=== PATIENT | female | born 1990 | race African-American/Black ===

== ENCOUNTER → 2020-02-21 13:55 | Outpatient (REF) | payer MEDICAID, SELFPAY ==
--- NOTE | 2020-02-21 14:00 | CA_ITS ---
Transthoracic Echocardiogram Patient (Last, First, Middle): Steve Sow, Gender: Female Date of : 1990 Age: 30 Procedure Date: 02/21/2020 Procedure Type: Transthoracic Echocardiogram Location: OP Height: 147.32 cm Weight: 54.43 kg BSA: 1.47 m2 Heart Rate: bpm BP: 118 / 60 mmHg Waiter/Waitress Informal: Referring MD: Jefferson Damon MD Symptoms: R55 SYNCOPE Study Quality: Fair ECG Rhythm: Sinus Conclusions: - The left ventricular systolic function is normal. The visually estimated ejection fraction is between 60-65%. - No obvious valvular pathology seen on this study. Findings Left Ventricle Normal left ventricular cavity size. There is normal left ventricular wall thickness. The left ventricular systolic function is normal. The visually estimated ejection fraction is between 60-65%. There is no evidence of regional wall motion abnormalities. Diastolic function is normal for age. Right Ventricle Normal right ventricular cavity size and systolic function. Atria Both atria are normal in size. Aortic Valve There is a normal trileaflet aortic valve. There is no aortic valve stenosis. There is no aortic valve regurgitation. Mitral Valve The mitral valve appears normal. There is trace mitral valve regurgitation. There is no mitral valve stenosis. Pulmonic Valve The pulmonic valve was not well visualized. Tricuspid Valve Normal tricuspid valve structure. There is trace tricuspid valve regurgitation. The pulmonary artery systolic pressure is normal. Great Vessels The aortic annulus, sinuses of valsalva, and asc aorta are normal in size. Venous The inferior vena cava is normal in size and collapses greater than 50% with inspiration. Pericardium/Pleural There is no evidence of pericardial effusion. Prior Study Comparison No prior study available for comparison. Recommendations, Care & Conclusions No obvious valvular pathology seen on this study. Measurements 2D Linear Measurements IVSd: 0.80 0.6-0.9/0.6-1.0 cm LVIDd: 3.88 3.9-5.3/4.2-5.9 cm LVIDd Index: 2.64 2.4-3.2/2.2-3.1 cm/m2 LVIDs: 2.25 2.0-3.6 cm LVPWd: 0.87 0.7-1.1 cm Ao Root: 2.20 2.1-3.5 cm LA Diam: 3.00 2.7-3.8/3.0-4.0 cm LAIDs Index: 2.04 1.5-2.3 cm/m2 LV Mass: 117.33 67-162/88-224 g LV Mass Index: 79.82 43-95/49-115 g/m2 LVOT Diam: 1.90 3.0+(-)1.3 cm Mitral Valve MV Pk E: 0.71 MV PK A: 0.53 MV Decel Time: 134.00 E/A: 1.30 E'Lateral: 11.50 E'Medial: 9.09 E/E' Med: 7.80 E/E' Lat: 6.20 PHT: 39.00 MVA PHT: 5.64 Decel [place]: 5.33 Aortic Valve AoV Pk Saulo: 1.38 AoV Mn Saulo: 0.90 AoV VTI: 0.28 AoV Pk Grad: 8.00 Aov Mn Grad: 4.00 CATALINA Cont.VTI: 2.22 LVOT LVOT Pk Saulo: 1.08 LVOT Mn Saulo: 0.74 LVOT VTI: 0.22 LVOT Pk Grad: 5.00 LVOT Mn Grad: 3.00 LVOT Diam: 1.90 LVOT Area: 2.84 Diastolic Function MV Pk E: 0.71 MV Pk A: 0.53 E/A: 1.30 E'Medial: 9.09 E/E' Med: 7.80 E' Laterial: 11.50 E/E' Lat: 6.20 Tricuspid Valve TR Pk Saulo: 1.76 TR Pk Grad: 12.00 RA Press: 3.00 RVSP: 15.00 Great Vessels Aorta Ao Root-2D: 2.20 2.0-3.7 cm Pulmonary Valve PV Pk Saulo: 1.02 Peak PV Grad: 4.00 Updated in Other Vendor System with Status of Final Darci Wheeler MD electronically signed on 02/22/2020 1:25:53 PM with status of Final
== END ==
LOC: HO.CARD 13:55
PROVIDERS: PCP Internal Medicine; Visit Provider Internal Medicine Cardiovascular Disease
DX: R55 Syncope and collapse (principal)
CPT/HCPCS: 93306

== ENCOUNTER → 2020-03-13 16:17 | Outpatient (BNVA) | payer MEDICAID, SELFPAY | PROVIDERS: Visit Provider Physician Assistant | DX: K21.9 Gastro-esophageal reflux disease without esophagitis (principal); R13.10 Dysphagia, unspecified; Z79.899 Other long term (current) drug therapy | CPT/HCPCS: 99212 ==

== ENCOUNTER 2020-03-22 08:53 | Outpatient (REF) | payer MEDICAID, SELFPAY ==
--- NOTE | 2020-03-22 08:55 | FL_ITS ---
EXAMINATION: FL ESOPHAGRAM CLINICAL INFORMATION: Dysphagia COMPARISON: None TECHNIQUE: Fluoroscopic assessment of the esophagus was performed in various upright and prone obliquities utilizing thin and thick high density barium contrast material and effervescent granules. FINDINGS: There is normal oral bolus control and transfer. Normal posterior tilt of the epiglottis with elevation of the hyoid. No cricopharyngeal abnormality. The esophagus was normal in course, caliber, and contour. There was normal distensibility with no fixed segment of narrowing. No focal mucosal abnormality was identified. No significant esophageal dysmotility was observed. Contrast passed freely across the gastroesophageal junction into the stomach. No significant hiatal hernia. Minimal gastroesophageal reflux was observed. FLUOROSCOPY TIME: 1.1 minute DOSE AREA PRODUCT: 5.169 Gy-cm2 (silverman-centimeter squared) FL/FL barium swallow IMPRESSION: Minimal gastroesophageal reflux is noted. Otherwise normal esophagram.
== END 2020-03-22 08:54 | disposition home or self-care (01) ==
LOC: HO.XRAY 08:53
PROVIDERS: PCP Pediatrics; Visit Provider Physician Assistant
DX: R13.10 Dysphagia, unspecified (principal); K21.9 Gastro-esophageal reflux disease without esophagitis
CPT/HCPCS: 74220

== ENCOUNTER → 2020-04-03 08:58 | Outpatient (BNVA) | payer MEDICAID, SELFPAY | PROVIDERS: PCP Pediatrics; Visit Provider Physician Assistant | DX: Z76.89 Persons encountering health services in other specified circumstances (principal) ==

== ENCOUNTER → 2021-07-22 12:15 | Outpatient (BNVA) | payer MEDICAID, SELFPAY | PROVIDERS: PCP Pediatrics; Visit Provider Physician Assistant | DX: K21.9 Gastro-esophageal reflux disease without esophagitis (principal); R10.9 Unspecified abdominal pain | CPT/HCPCS: 99212 ==

== ENCOUNTER 2022-12-03 11:59 | Outpatient (REF) | payer MEDICAID, SELFPAY ==
[2022-12-03 16:41] LABS: TSH reflex Free T4 0.46 uIU/mL (0.32-4.0)
== END 2022-12-03 12:00 | disposition home or self-care (01) ==
LOC: CF 11:59
PROVIDERS: Visit Provider Pediatrics
DX: E04.2 Nontoxic multinodular goiter (principal)
CPT/HCPCS: 36415; 84443

== ENCOUNTER 2024-06-07 12:59 | Outpatient (REF) | payer MEDICAID, SELFPAY ==
--- OUTSIDE RECORDS SUMMARY | 2024-06-07 15:07 | XMS_ITS | Encounter Summary ---
Author Organization [employer] Address [address] [place] [address] [address] [place] [address] Care Team Providers Care Supervisor Looping Name Role Phone Tiny Richter MD Primary Care Provider [phone] Reason for Referral * Consultation (Urgent) - Authorized Specialty Diagnoses / Procedures Referred By Juan Diego evans Referred To Contact Optometry Diagnoses Encounter for annual physical exam Tiny Richter MD [address] [place] [address] Phone: tel: fax: [facility] [place] [address] Phone: tel: fax: Referral ID Status Reason Start Date Expiration Date Visits Requested Visits Authorized [id number] Authorized Consult and Treat 06/02/2024 06/02/2025 1 1 * Consultation (Urgent) - Authorized Specialty Diagnoses / Procedures Referred By Juan Diego evans Referred To Contact Neurology Diagnoses Encounter for annual physical exam Tiny Richter MD [address] [place] [address] Phone: tel: fax: [facility] Referral ID Status Reason Start Date Expiration Date Visits Requested Visits Authorized [id number] Authorized Specialty Services Required 06/05/2024 06/05/2025 6 6 Reason for Visit * Reason Comments Annual Exam Encounter Details Date Type Department Care Team (Latest Contact Info) Description 06/02/2024 10:00 AM EST Office Visit [facility] [address] [place] [address] Tiny Richter MD [address] [place] [address] Encounter for annual physical exam (Primary Dx); Dietary counseling; Exercise counseling; Overweight; Generalized anxiety disorder; Chronic nonintractable headache, unspecified headache type Social History Tobacco Use Types Packs/Day Years Used Date Smoking Tobacco: Never Passive Smoke Exposure: Never Smokeless Tobacco: Never Alcohol Use Standard Drinks/Week Comments Never 0 (1 standard drink = 0.6 oz pur e alcohol) Depression Answer Date Recorded Patient Health Questionnaire-9 Score 15 06/02/2024 Patient Health Questionnaire-9 Score 15 06/02/2024 Last PHQ-9: Questionnaire Data Not on file 0 06/02/2024 Housing Stability Answer Date Recorded What is your housing situation today? I have katarina smith 05/24/[address] you li ve. Do you have problems with any of the following? None of the above 05/24/2024 Food Insecurity Answer Date Recorded Within the past 12 months, y ou worried that your food would run out before you got money to buy more: Never True 05/24/2024 Within the past 12 months,th e food you bought just didn't last and you didn't have enough money to get more: Never True Transportation Answer Date Recorded In the past 12 months, has l ack of transportation kept you from medical appts, meetings, work or from getting things needed for daily living? No 05/24/2024 Utilities Answer Date Recorded In the past 12 months, has t he electric, gas, oil or water company threatened to shut off services in your home? No 05/24/2024 Depression Answer Date Recorded Patient Health Questionnaire-2 Score 1 06/02/2024 Internet Access Answer Date Recorded Internet Access Q1 Yes 05/24/2024 Internet Access Q2 Not on file 05/24/2024 Comments Unknown Sex and Gender Information Value Date Recorded Sex Assigned at Female 03/09/2022 10:29 AM EDT Legal Sex Female 10:29 AM EDT Gender Identity Female 03/09/2022 10:29 AM EDT Sexual Orientation Straight 03/09/2022 10 :29 AM EDT documented as of this encounter Last Filed Vital Signs Vital Sign Reading Time Taken Comments Blood Pressure 130/87 06/02/2024 10:06 AM EST Pulse 118 06/02/2024 10:06 AM EST Temperature 36.4 ??C (97.6 ??F) 06/02/2024 10:[address] Respiratory Rate 16 06/02/2024 10:06 AM EST Oxygen Saturation 98% 06/02/2024 10:06 AM EST Inhaled Oxygen Concentration - - Weight 60.8 kg (134 lb) 06/02/2024 10:06 AM EST Height 147.3 cm (4' 10 ) 06/02/2024 10:06 AM EST Body Mass Index 28.01 06/02/2024 10:06 AM EST documented in this encounter Progress Notes * Tiny Richter MD - 06/02/2024 10:00 AM EST Subjective Patient ID: Steve Sow is a 34 y.o. female who presents for Annual Exam. Steve is a 34-year-old female patient of mine here for a physical exam visit. She has a past medical history of Chiari malformation for which she needed surgery, overweight, severe anxiety and PTSD, hypothyroidism with multi nodular goiter on the replacement levothyroxine, chronic headaches. She is currently single lives by herself and is currently unemployed but seems to be doing okay. She is here with her mother that she helps take care of. Has no new complaints. She does need her annual eye exam referral and dental care but is afraid of dentist. History provided by: Patient building rigger used: No Review of Systems Constitutional: Negative for activity change, chills, fever and unexpected weight change. HENT: Negative for trouble swallowing. Eyes: Positive for visual disturbance. Negative for pain. Respiratory: Negative for cough, shortness of breath and wheezing. Cardiovascular: Negative for chest pain, palpitations and leg swelling. Gastrointestinal: Negative for abdominal pain and blood in stool. Endocrine: Negative for cold intolerance, heat intolerance, polydipsia and polyuria. Genitourinary: Negative for decreased urine volume, difficulty urinating, dysuria, hematuria, menstrual problem and vaginal discharge. Musculoskeletal: Negative for arthralgias and gait problem. Skin: Negative for color change and rash. Neurological: Positive for headaches. Negative for dizziness, seizures, syncope and weakness. Hematological: Negative for adenopathy. Psychiatric/Behavioral: Negative for dysphoric mood, hallucinations, sleep disturbance and suicidalideas. The patient is nervous/anxious. Objective BP 130/87 (BP Location: Left arm, Patient Position: Sitting, BP Cuff Size: Adult) Pulse(!) 118 Temp 97.6 ??F (36.4 ??C) (Oral) Resp 16 Ht 4' 10 (1.473 m) Wt 134 lb (60.8 kg) SpO2 98% BMI 28.01 kg/m?? Physical Exam Vitals reviewed. Constitutional: General: She is not in acute distress. Appearance: Normal appearance. She is not ill-appearing. HENT: Head: Normocephalic. Right Ear: Tympanic membrane and ear canal normal. Left Ear: Tympanic membrane and ear canal normal. Nose: Nose normal. Mouth/Throat: Mouth: Mucous membranes are moist. Pharynx: No oropharyngeal exudate or posterior oropharyngeal erythema. Eyes: General: Lids are normal. Vision grossly intact. No visual field deficit or scleral icterus. Extraocular Movements: Extraocular movements intact. Right eye: No nystagmus. Left eye: No nystagmus. Conjunctiva/sclera: Conjunctivae normal. Pupils: Pupils are equal, round, and reactive to light. Comments: Left eye externally deviated Cardiovascular: Rate and Rhythm: Normal rate and regular rhythm. Pulses: Normal pulses. Heart sounds: Normal heart sounds. Pulmonary: Effort: Pulmonary effort is normal. No respiratory distress. Breath sounds: Normal breath sounds. Abdominal: Palpations: Abdomen is soft. Musculoskeletal: General: Normal range of motion. Cervical back: Normal range of motion. Right lower leg: No edema. Left lower leg: No edema. Skin: General: Skin is warm. Capillary Refill: Capillary refill takes less than 2 seconds. Findings: No rash. Neurological: General: No focal deficit present. Mental Status: She is alert and oriented to person, place, and time. Psychiatric: Mood and Affect: Mood normal. Behavior: Behavior normal. Thought Content: Thought content normal. Judgment: Judgment normal. Assessment/Plan Diagnoses and all orders for this visit: Encounter for annual physical exam Comments: Steve had her PE today.Fasting labs ordered. Pap due next year. Needs eye exam referral .Dental care overdue but is terrified.Referral done anyways , advised to work on her fear of dentist with therapist. Orders: - Referral to Neurology; Future - Referral to [facility]; Future - Basic Metabolic Panel, Fasting; Future - Chlamydia/N. Gonorrhoeae RNA, TMA, Urogenitial - Hepatitis B Surface Antibody, Qualitative; Future - Hepatitis C Antibody with Reflex to HCV, RNA, Quantitative, Real-Time PCR; Future - HIV-1/2 Antigen and Antibodies, Fourth Generation, with Reflexes; Future - Lipid Panel, Standard; Future - TSH W/Reflex to FT4; Future - Syphilis Screen; Future Dietary counseling Exercise counseling Overweight Comments: Advised to picket labor union a hobby or start walking more etc.. Check fasting labs.Recheck TFts to make surethey are at goal. Last thyroid US sowed multiple nodules ( none concening ). Generalized anxiety disorder Comments: Patient has a therapist and psych provider,meds prescribed by them,mood seems more stable at this time. Chronic nonintractable headache, unspecified headache type Comments: Has hx of Chiari malformation, needed neurosx in past,use to see neurology.New referral done today.Having visual disturbances as well.Opthalm referal done too.Limited visual exam done today within normal limits.Has always had left eye lateral deviation. documented in this encounter Plan of Treatment Upcoming Encounters Date Type Department Care Team ([facility] st Contact Info) Description 08/02/2024 11:00 AM EDT Office Visit [facility] [address] [place] [address] Tiny Richter MD [address] [place] [address] Scheduled Orders Name Type Priority Associated Diagnoses Orde r Schedule Basic Metabolic Panel, Fasting Lab Routine Encounter for annual physical exam Expected: 06/02/2024 (Approximate), Expires: 06/02/2025 Chlamydia/N. Gonorrhoeae RNA, TMA, Urogenitial Microbiology Routine Encounter for annual physical exam Ordered: 06/02/2024 Hepatitis B Surface Antibody, Qualitative Lab Routine Encounter for annual physical exam Expected: 06/02/2024 (Approximate), Expires: 06/02/2025 Hepatitis C Antibody with Reflex to HCV, RNA, Quantitative, Real-Time PCR Lab Routine Encounter for annual physical exam Expected: 06/02/2024, Expires: 06/02/2025 HIV-1/2 Antigen and Antibodies, Fourth Generation, with Reflexes Lab Routine Encounter for annual physical exam Expected: 06/02/2024 (Approximate), Expires: 06/02/2025 Lipid Panel, Standard Lab Routine Encounter for annual physical exam Expected: 06/02/2024 (Approximate), Expires: 06/02/2025 TSH W/Reflex to FT4 Lab Routine Encounter for annual physical exam Expected: 06/02/2024 (Approximate), Expires: 06/02/2025 Syphilis Screen Lab Routine Encounter for annual physical exam Expected: 06/02/2024, Expires: 06/02/2025 Scheduled Referrals Name Type Priority Associated Diagnoses Orde r Schedule Referral to Neurology Outpatient Referral Urgent Encounter for annual physical exam Expected: 06/02/2024 (Approximate), Expires: 06/02/2025 Referral to [facility] Outpatient Referral Urgent Encounter for annual physical exam Expected: 06/02/2024 (Approximate), Expires: 06/02/2025 documented as of this encounter Visit Diagnoses Diagnosis Encounter for annual physical exam- Primary Dietary counseling Dietary surveillance and counseling Exercise counseling Overweight Generalized anxiety disorder Chronic nonintractable headache, unspecified headache type documented in this encounter Additional Health Concerns Assessment Noted Time PHQ-9 Depression Total Score: 15 025 10:56 AM EST documented as of this encounter Care Teams Supervisor Looping Relationship Specialty Start Date End Date Tiny Richter MD [address] [place] [address] PCP - General Family Medicine 09/01/17 documented as of this encounter
--- OUTSIDE RECORDS SUMMARY | 2024-06-07 15:07 | XMS_ITS | Encounter Summary ---
Author Organization [employer] [facility] Address [address] [place] [address] [address] [place] [address] Care Team Providers Care Milieu Coordinator Name Role Phone Tiny Richter MD Primary Care Provider [phone] Reason for Visit * Reason Comments Med Refill Encounter Details Date Type Department Care Team ([facility] Contact Info) Description 04/09/2023 Refill [facility] [address] [place] [address] Tiny Richter MD [address] [place] [address] Social History Tobacco Use Types Packs/Day Years Used Date Smoking Tobacco: Never Passive Smoke Exposure: Never Smokeless Tobacco: Never Comments Unknown Sex and Gender Information Value Date Recorded Sex Assigned at Female 03/09/2022 10:29 AM EDT Legal Sex Female 10:29 AM EDT Gender Identity Female 03/09/2022 10:29 AM EDT Sexual Orientation Straight 03/09/2022 10 :29 AM EDT documented as of this encounter Plan of Treatment Upcoming Encounters Date Type Department Care Team ([facility] Contact Info) Description 08/02/2024 11:00 AM EDT Office Visit [facility] [address] [place] [address] Tiny Richter MD [address] [place] [address] documented as of this encounter Visit Diagnoses Not on filedocumented in this encounter Care Teams Milieu Coordinator Relationship Specialty Start Date End Date Tiny Richter MD [address] [place] [address] PCP - General Family Medicine 09/01/17 documented as of this encounter
--- OUTSIDE RECORDS SUMMARY | 2024-06-07 15:07 | XMS_ITS | Encounter Summary ---
Author Organization [employer] [facility] Address [address] [place] [address] [address] [place] [address] Care Team Providers Care Distillery Miller Name Role Phone Tiny Richter MD Primary Care Provider [phone] Encounter Details Date Type Department Care Team (Late Contact Info) Description 11/23/2022 Orders Only [facility] [address] [place], [place] [phone] Lexii Sureo LPN Social History Tobacco Use Types Packs/Day Years [...] Upcoming Encounters Date Type Department Care Team (Late Contact Info) Description 08/02/2024 11:00 AM EDT Office Visit [facility] [address] [place] [address] Tiny Richter MD [address] [place] [address] documented as of this encounter Visit Diagnoses Not on filedocumented in this encounter Care Teams Distillery Miller Relationship Specialty Start Date End Date Tiny Richter MD [address] [place] [address] PCP - General Family Medicine 09/01/17 documented as of this encounter
--- OUTSIDE RECORDS SUMMARY | 2024-06-07 15:07 | XMS_ITS | Encounter Summary ---
Author Organization [employer] Address [address] [place] [address] Care Team Providers Care Deburrer Machine Name Role Phone Tiny Richter MD Primary Care Provider [phone] Reason for Visit * Reason Onset Date Comments Chart Prep 05/26/2024 Encounter Details Date Type Department Care Team ([facility] st Contact Info) Description 05/26/2024 Telephone [facility] [address] [place], [place] [phone] Tiny Richter MD [address] [place] [address] Chart Prep Social History Tobacco Use Types Packs/Day Years Used Date Smoking Tobacco: Never Passive Smoke Exposure: Never Smokeless Tobacco: Never Alcohol Use Standard Drinks/Week Comments Never 0 (1 standard drink = 0.6 oz pur e alcohol) Housing Stability Answer Date Recorded What is your housing situation today? I have katarinaduke smith 05/24/[address] you [...] off services in your home? No 05/24/2024 Internet Access Answer Date Recorded Internet Access Q1 Yes 05/24/2024 Internet Access Q2 Not on file 05/24/2024 Comments Unknown Sex and Gender Information Value Date Recorded Sex Assigned at Female 03/09/2022 10:29 AM EDT Legal Sex Female 10:29 AM EDT Gender Identity Female 03/09/2022 10:29 AM EDT Sexual Orientation Straight 03/09/2022 10 :29 AM EDT documented as of this encounter Miscellaneous Notes * Telephone Encounter - Sarah [place] - 05/26/2024 10:20 AM EST Chart Prep Labs: not applicable Images: not applicable Vaccines due: yes Referrals: n/a Screenings: n/a Overdue care gaps: Sbirt, PHQ-9, disability screening documented in this encounter Plan of Treatment Upcoming Encounters Date Type Department Care Team (Late st Contact Info) Description 08/02/2024 11:00 AM EDT Office Visit [facility] [address] [place] [address] Tiny Richter MD [address] [place] [address] documented as of this encounter Visit Diagnoses Not on filedocumented in this encounter Care Teams Deburrer Machine Relationship Specialty Start Date End Date Tiny Richter MD [address] [place] [address] PCP - General Family Medicine 09/01/17 documented as of this encounter
--- OUTSIDE RECORDS SUMMARY | 2024-06-07 15:07 | XMS_ITS | Encounter Summary ---
Author Organization [employer] Address [address] [place] [address] Care Team Providers Care Thermal Spray Operator Name Role Phone Tiny Richter MD Primary Care Provider [phone] Encounter Details Date Type Department Care Team (Latest Contact Info) Description 06/02/2024 Travel Social History Tobacco Use Types Packs/Day Years [...] Description 08/02/2024 11:00 AM EDT Office Visit [facility] MED [facility] PEDS [address] [place] [address] Tiny Richter MD [address] [place] [address] documented as of this encounter Visit Diagnoses Not on filedocumented in this encounter Additional Health Concerns Assessment Noted Time PHQ-9 Depression Total Score: 15 025 10:56 AM EST documented as of this encounter Care Teams Thermal Spray Operator Relationship Specialty Start Date End Date Tiny Richter MD [address] [place] [address] PCP - General Family Medicine 09/01/17 documented as of this encounter
--- OUTSIDE RECORDS SUMMARY | 2024-06-07 15:07 | XMS_ITS | Clinical Summary ---
Author Organization [facility] Address [address] [place] [address] Phone Care Team Providers Care Stocklayer Name Role Phone Kofi Burks MD Primary Care Provider [phone] Allergies Active Allergy Reactions Criticality Noted Date Comments Penicillins 03/31/2024 Encounters Date Type Department Care Team Description 03/31/2024 1:10 AM EST - 03/31/2024 4:54 AM EST Emergency [facility] Emergency [address] [place] [address] Dez Franco MD Chest pain with low risk for cardiac etiology (Primary Dx) Discharge Disposition: Home or Self Care from Last 3 Months Surgical History Surgery Date Site/Laterality Comments TONSILLECTOMY ADENOIDECTOMY, BILATERAL MYRINGOTOMY AND TUBES PROCEDURE: [place] TONSILLECTOM[place] & ADENOIDECTOMY <AGE 13 OTHER SURGICAL HISTORY 1992 Bilateral PROCEDURE: ---- OTHER ----; COMMENT: eye Medical History Medical History Date Comments Disease of thyroid gland Asthma Social History Tobacco Use Types Packs/Day Years Used Date Smoking Tobacco: Never Smokeless Tobacco: Never Tobacco Cessation:Counseling Given: Not Answered Alcohol Use Standard Drinks/Week Comments Yes 0 (1 standard drink = 0.6 oz pur e alcohol) Sex and Gender Information Value Date Recorded Sex Assigned at Not on file Gender Identity Not on file Sexual Orientation Not on file Job Start Date Occupation Industry Not on file Not on file Not on file Obstetrics History Last Filed Vital Signs Vital Sign Reading Time Taken Comments Blood Pressure 105/79 03/31/2024 2:46 AM EST Pulse 75 03/31/2024 2:46 AM EST Temperature 36.8 ??C (98.2 ??F) 03/31/2024 2:46 AM ES T Respiratory Rate 18 03/31/2024 2:46 AM EST Oxygen Saturation 97% 03/31/2024 2:46 AM EST Inhaled Oxygen Concentration - - Weight 59 kg (130 lb) 03/31/2024 12:04 AM EST Height 147.3 cm (4' 10 ) 03/31/2024 12:04 AM EST Body Mass Index 27.17 03/31/2024 12:04 AM EST Plan of Treatment Health Maintenance Due Date Last Done Comments Pneumococcal Vaccine: Pediatrics (0 to 5 Years) and At-Risk Patients (6 to 64 Years) (1 of 2 - PCV) 1997 DTaP,Tdap,and Td Vaccines (1 - Tdap) 2010 Hepatitis B Vaccines (1 of 3 - 19+ 3-dose series) 2010 Cervical Cancer Screening: P ap Smear 01/05/2012 Depression Screening 04/12/2022 Hepatitis C Screening 04/12/2022 Social Influencers of Health Screening 04/12/2022 COVID-19 Vaccine (4 - 2023-2 5 season) 2024 03/21/2021, 08/14/2020, 07/17/2020 Influenza Vaccine (#1) 2024 , 02/21/2018, 03/03/2010 HIV Screening Completed 10/03/2020 HIB Vaccines Aged Out No longer eligi ble based on patient's age to complete this topic HPV Vaccines Aged Out No longer eligi ble based on patient's age to complete this topic Hepatitis A Vaccines Aged Out No long er eligible based on patient's age to complete this topic IPV Vaccines Aged Out No longer eligi ble based on patient's age to complete this topic MMR Vaccines Aged Out No longer eligi ble based on patient's age to complete this topic Meningococcal ACWY Vaccine Aged Out N o longer eligible based on patient's age to complete this topic RSV Immunization Patients Under 20 months Aged Out No longer eligible b ased on patient's age to complete this topic Varicella Vaccines Aged Out No longer eligible based on patient's age to complete this topic Procedures Procedure Name Priority Date/Time Associated Diagnosis Comments XR CHEST 2 VIEWS STAT 03/31/2024 2:57 AM EST TROPONIN I HIGH SENSITIVITY STAT 03/31/2024 2:38 AM EST ECG 12-LEAD STAT 03/31/2024 2:16 AM EST POC , URINE DIAGNOSTIC STAT 03/31/2024 1:11 AM EST CBC WITH AUTO DIFFERENTIAL STAT 03/31/2024 12:50 AM EST B-TYPE NATRIURETIC PEPTIDE STAT 03/31/2024 12:50 AM EST MAGNESIUM STAT 03/31/2024 12:50 AM EST LIPASE STAT 03/31/2024 12:50 AM EST COMPREHENSIVE METABOLIC PANEL STAT 03/31/2024 12:50 AM EST CBC AND DIFFERENTIAL STAT 03/31/2024 12:50 AM EST TROPONIN I HIGH SENSITIVITY STAT 03/31/2024 12:50 AM EST ECG 12-LEAD STAT 03/31/2024 12:02 AM EST ECG ANNOTATED 03/31/2024 ECG ANNOTATED 03/31/2024 from Last 3 Months Results * XR Chest 2 Views (03/31/2024 2:57 AM EST) Anatomical Region Laterality Modality Body Radiographic Leatha ging 03/31/2024 8:45 AM EST Impressions 03/31/2024 8:47 AM EST Normal examination. ??The patient has undergone cholecystectomy since the prior study performed 08/24/2021. Code 96048 CT Teleradiology -------- FINAL REPORT -------- Dictated By: Keon Leonardo Dictated Date: 03/31/2024 08:45 ET Assigned Physician: Keon Leonardo Reviewed and Electronically Signed By: Keon Leonardo Signed Date: 03/31/2024 08:47 ET Workstation ID: [id number] Transcribed By: Self Edit Transcribed Date: 03/31/2024 08:45 ET Narrative 03/31/2024 8:47 AM EST HISTORY: The patient is a 34-year-old female with chest pain. FINDINGS: PA and lateral radiographs of the chest demonstrate normal appearance of the bony structures. ??The cardiac and mediastinal contours are within normal limits. ??The lungs and costophrenic angles are clear. Cholecystectomy clips are noted, new since the prior study performed 08/24/2021. Procedure Note Keon Leonardo MD - 03/31/2024 HISTORY: The patient is a 34-year-old female with chest pain. FINDINGS: PA and lateral radiographs of the chest demonstrate normalappearance of the bony structures. The cardiac and mediastinal contoursare within normal limits. The lungs and costophrenic angles are clear. Cholecystectomy clips are noted, new since the prior study performed08/24/2021. IMPRESSION: Normal examination. The patient has undergone cholecystectomy since theprior study performed 08/24/2021. Code 59639 CT Teleradiology -------- FINAL REPORT -------- Dictated By: Keon Leonardo Dictated Date: 03/31/2024 08:45 ET Assigned Physician: Keon Leonardo Reviewed and Electronically Signed By: Keon Leonardo Signed Date: 03/31/2024 08:47 ET Workstation ID: [id number] Transcribed By: Self Edit Transcribed Date: 03/31/2024 08:45 ET Scot A Salvador QUICK IMG XR PROCEDURES * Troponin I high sensitivity (03/31/2024 2:38 AM EST) Only the most recent of2 resultswithin the time period is included. High Sensitivity Troponin I 5 <=54 ng/L LAB CHEMISTRY METHOD 03/31/2024 3:05 AM EST [facility] Blood Venous blood specimen / Unknown Venipuncture / Unknown 03/31/2024 2:38 AM EST 03/31/2024 2:42 AM EST Narrative [facility] - 03/31/2024 3:05 AM EST High levels of biotin in samples may falsely decrease hsTroponin values. ??Use caution when interpreting hsTroponin results in patients taking biotin who exhibit renal impairment (eGFR <60) or in patients taking more than 20 mg/day of biotin. Dez Franco MD LAB [facility]LOOD ORDERABLES [facility] [address] [place] [address], * ECG 12 lead (03/31/2024 2:16 AM EST) Only the most recent of2 resultswithin the time period is included. Ventricular Rate ECG 76 BPM GEMUSE Atrial Rate 76 BPM GEMUSE P-R Interval 132 ms GEMUSE QRS Duration 64 ms GEMUSE Q-T Interval 390 ms GEMUSE QTc 438 ms GEMUSE P Wave [place] 18 degrees GEMUSE R Jefferson 11 degrees GEMUSE T [place] 19 degrees GEMUSE ECG Interpretation Normal sinus rhythm Normal ECG When compared with ECG of 31-MAR-2024 00:02, No significant change was found Confirmed by MD Saravanan, [place] ([id number]) on 04/02/2024 12:57:02 PM GEMUSE 03/31/2024 2:16 AM EST 04/02/2024 12:57 PM EST Dez Franco MD ECG ORDERABLES Performing Organization Address City[facility]/ZIP Co de Phone Number GEMUSE * POC , urine manually resulted (03/31/2024 1:11 AM EST) HCG, Ur POC Negative Negative POC hCG Int QC Pass? Yes Yes Urine Urine specimen obtained by clean catch procedure / Unknown 03/31/2024 1:11 AM EST Dez Franco MD POINT OF CARE TEST E NTER/EDIT ORDERABLES * (ABNORMAL) CBC auto differential (03/31/2024 12:50 AM EST) WBC 10.9(H) 4.8 - 10.8 K/[facility] LAB HEMETOLOGY METHOD 03/31/2024 1:24 AM [facility] RBC 4.40 3.80 - 4.80 M/mcL LAB HEMETOLOGY METHOD 03/31/2024 1:24 AM [facility] Hemoglobin 13.6 11.5 - 16.0 g/dL LAB HEMETOLOGY METHOD 03/31/2024 1:24 AM [facility] Hematocrit 40.8 35.0 - 47.0 % LAB HEMETOLOGY METHOD 03/31/2024 1:24 AM [facility] MCV 92.9 79.0 - 98.0 FL LAB HEMETOLOGY METHOD 03/31/2024 1:24 AM [facility] MCH 31.0 27.0 - 32.0 pcg LAB HEMETOLOGY METHOD 03/31/2024 1:24 AM [facility] MCHC 33.3 32.0 - 37.0 g/dL LAB HEMETOLOGY METHOD 03/31/2024 1:24 AM [facility] RDW 12.2 11.0 - 15.0 % LAB HEMETOLOGY METHOD 03/31/2024 1:24 AM [facility] Platelets 459(H) 130 - 400 K/mcL LAB HEMETOLOGY METHOD 03/31/2024 1:24 AM [facility] MPV 9.5 7.0 - 11.0 FL LAB HEMETOLOGY METHOD 03/31/2024 1:24 AM [facility] NRBC 0.0 <1.0 % LAB HEMETOLOGY METHOD 03/31/2024 1:24 AM [facility] NRBC Absolute 0.00 <0.10 K/mcL LAB HEMETOLOGY METHOD 03/31/2024 1:24 AM [facility] Neutrophils Relative 60.4 % LAB HEMETOLOGY METHOD 03/31/2024 1:24 AM [facility] Lymphocytes Relative 29.9 % LAB HEMETOLOGY METHOD 03/31/2024 1:24 AM [facility] Monocytes Relative 6.5 % LAB HEMETOLOGY METHOD 03/31/2024 1:24 AM [facility] Eosinophils Relative 2.1 % LAB HEMETOLOGY METHOD 03/31/2024 1:24 AM [facility] Basophils Relative 0.8 % LAB HEMETOLOGY METHOD 03/31/2024 1:24 AM [facility] Immature Granulocytes Relative 0.3 % LAB HEMETOLOGY METHOD 03/31/2024 1:24 AM [facility] Neutrophils Absolute 6.55 1.50 - 7.00 K/mcL LAB HEMETOLOGY METHOD 03/31/2024 1:24 AM [facility] Lymphocytes Absolute 3.24 1.00 - 5.00 K/mcL LAB HEMETOLOGY METHOD 03/31/2024 1:24 AM [facility] Monocytes Absolute 0.71 0.20 - 1.00 K/mcL LAB HEMETOLOGY METHOD 03/31/2024 1:24 AM [facility] Eosinophils Absolute 0.23 0.00 - 0.50 K/mcL LAB HEMETOLOGY METHOD 03/31/2024 1:24 AM [facility] Basophils Absolute 0.09 0.00 - 0.20 K/mcL LAB HEMETOLOGY METHOD 03/31/2024 1:24 AM [facility] Immature Granulocytes Absolute 0.03 0.00 - 0.03 K/mcL LAB HEMETOLOGY METHOD 03/31/2024 1:24 AM [facility] Blood Venous blood specimen / Unknown Venipuncture / Unknown 03/31/2024 12:50 AM EST 03/31/2024 1:18 AM EST Dez Franco MD LAB BLOOD ORDERABLES [facility] [address] [place] [address], * B-type natriuretic peptide (03/31/2024 12:50 AM EST) Pathologist [facility] BNP <2 <=100 pcg/mL LAB CHEMISTRY METHOD 03/31/2024 2:04 AM EST [facility] Blood Venous blood specimen / Unknown Venipuncture / Unknown 03/31/2024 12:50 AM EST 03/31/2024 1:19 AM EST Dez Franco MD LAB BLOOD ORDERABLES Performing Organization Address [facility] de Phone Number [facility] [address] [place] [address], * Magnesium (03/31/2024 12:50 AM EST) [facility] Magnesium 2.3 1.9 - 2.6 mg/dL LAB CHEMISTRY METHOD 03/31/2024 1:57 AM EST [facility] Blood Venous blood specimen / Unknown Venipuncture / Unknown 03/31/2024 12:50 AM EST 03/31/2024 1:18 AM EST Dez Franco MD LAB BLOOD ORDERABLES Performing Organization Address City[facility]/ZIP Co de Phone Number [facility] [address] [place] [address], * Lipase (03/31/2024 12:50 AM EST) Pathologist [facility] Lipase 23 13 - 75 unit/L LAB CHEMISTRY METHOD 03/31/2024 1:57 AM EST [facility] Blood Venous blood specimen / Unknown Venipuncture / Unknown 03/31/2024 12:50 AM EST 03/31/2024 1:18 AM EST Dez Franco MD LAB BLOOD ORDERABLES [facility] [address] [place] [address], * (ABNORMAL) Comprehensive metabolic panel (03/31/2024 12:50 AM EST) Sodium 139 133 - 145 mmol/L LAB CHEMISTRY METHOD 03/31/2024 1:57 AM [facility] Potassium 3.8 3.5 - 5.5 mmol/L LAB CHEMISTRY METHOD 03/31/2024 1:57 AM [facility] Chloride 106 96 - 110 mmol/L LAB CHEMISTRY METHOD 03/31/2024 1:57 AM [facility] CO2 25 21 - 32 mmol/L LAB CHEMISTRY METHOD 03/31/2024 1:57 AM [facility] Anion Gap 8 3 - 11 LAB CHEMISTRY METHOD 03/31/2024 1:57 AM [facility] Glucose 80 70 - 100 mg/dL LAB CHEMISTRY METHOD 03/31/2024 1:57 AM [facility] BUN 11 5 - 25 mg/dL LAB CHEMISTRY METHOD 03/31/2024 1:57 AM [facility] Creatinine 0.83 0.50 - 1.10 mg/dL LAB CHEMISTRY METHOD 03/31/2024 1:57 AM [facility] eGFR 96 >=60 mL/min/1. 73m2 LAB CHEMISTRY METHOD 03/31/2024 1:57 AM [facility] Comment:Calculation based on the??Chronic Kidney Disease Epidemiology Collaboration (CKD-EPI) equation refit??without adjustment for race. BUN/Creatinine Ratio 13.3 LAB CHEMISTRY METHOD 03/31/2024 1:57 AM [facility] Calcium 9.9 8.5 - 10.5 mg/dL LAB CHEMISTRY METHOD 03/31/2024 1:57 AM [facility] AST (SGOT) 19 10 - 42 unit/L LAB CHEMISTRY METHOD 03/31/2024 1:57 AM [facility] ALT (SGPT) 18 10 - 60 unit/L LAB CHEMISTRY METHOD 03/31/2024 1:57 AM [facility] Alkaline Phosphatase 88 42 - 121 unit/L LAB CHEMISTRY METHOD 03/31/2024 1:57 AM [facility] Total Protein 8.4(H) 6.0 - 8.0 g/dL LAB CHEMISTRY METHOD 03/31/2024 1:57 AM [facility] Albumin 4.3 3.2 - 5.0 g/dL LAB CHEMISTRY METHOD 03/31/2024 1:57 AM [facility] Total Bilirubin 0.4 0.0 - 1.4 mg/dL LAB CHEMISTRY METHOD 03/31/2024 1:57 AM [facility] Blood Venous blood specimen / Unknown Venipuncture / Unknown 03/31/2024 12:50 AM EST 03/31/2024 1:18 AM EST Dez Franco MD LAB BLOOD ORDERABLES [facility] [address] [place] [address], * ECG-Annotated (03/31/2024) Only the most recent of2 resultswithin the time period is included. Provider Onbase ECG ORDERABLES from Last 3 Months Care Teams Stocklayer Relationship Specialty Start Date End Date Kofi Burks MD [address] [place] [address] PCP - General 09/20/14
--- OUTSIDE RECORDS SUMMARY | 2024-06-07 15:07 | XMS_ITS | Encounter Summary ---
Author Organization [email or web address] Address [address] [place] [address] [facility] [place] [address] Care Team Providers Care Flight Paramedic Name Role Phone Tiny Richter MD Primary Care Provider [phone] Encounter Details Date Type Department Care Team (Late Contact Info) Description 11/06/2022 Orders Only [facility] [address] [place] [address] Fay Clark LPN Social History Tobacco Use Types Packs/Day [...] Description 08/02/2024 11:00 AM EDT Office Visit [facility] [address] [place] [address] Tiny Richter MD [address] [place] [address] documented as of this encounter Visit Diagnoses Not on filedocumented in this encounter Care Teams Flight Paramedic Relationship Specialty Start Date End Date Tiny Richter MD [address] [place] [address] PCP - General Family Medicine 09/01/17 documented as of this encounter
--- OUTSIDE RECORDS SUMMARY | 2024-06-07 15:07 | XMS_ITS | Clinical Summary ---
Author Organization [employer] Address [address] [place] [address] Care Team Providers Care Supervising Airplane Pilot Name Role Phone Tiny Richter MD Primary Care Provider [phone] Allergies Active Allergy Reactions Criticality Noted Date Comments Penicillins Hives High 10/28/2015 Medications omeprazole OTC (PriLOSEC OTC) 20 MG EC tablet Take 1 tablet (20 mg) by mouth before breakfast and before evening meal. 180 tablet 2 3 Active diphenhydrAMINE (BENADryl) 25 MG tablet TAKE 1 TABLET BY MOUTH 1 TIME NEEDED FOR ALLERGIC REACTION 3 Active levothyroxine (Synthroid, Levoxyl) 100 MCG tablet take 1 Tablet by Oral route once a day 2 Active zolpidem (Ambien) 10 MG tablet Take 10 mg by mouth if needed at bedtime. 3 Active propranolol LA (Inderal LA) 80 MG 24 hr capsule Take 80 mg by mouth at bedtime. 3 Active omeprazole (PriLOSEC) [address] capsule TAKE 1 CAPSULE BY MOUTH BEFORE BREAKFAST AND 1 CAPSULE BEFORE DINNER 3 Active mupirocin (Bactroban) 2 % ointment APPLY SMALL AMOUNT TOPICALLY TO THE AFFECTED AREA TWICE DAILY 3 Active gabapentin (Neurontin) 300 MG capsule Take 300 mg by mouth at bedtime. 3 Active EPINEPHrine (Epipen) 0.3 MG/0.3ML injection syringe ADMINISTER 0.3 ML IN THE MUSCLE 1 TIME NEEDED FOR ANAPHYLAXIS 2 Active clonazePAM (KlonoPIN) 0.5 MG tablet Take 0.5 mg by mouth if needed in the morning and at bedtime. 3 Active Adderall XR 30 MG 24 hr capsule Take 30 mg by mouth in the morning. 3 Active ARIPiprazole (Abilify) 5 MG tablet Take 5 mg by mouth in the morning. 3 Active cholecalciferol VITAMIN D (Vitamin D-3) 50 MCG (2000 UT) capsule TAKE 1 CAPSULE BY MOUTH IN THE MORNING 90 capsule 1 4 Active cetirizine (ZyrTEC) 10 MG tablet TAKE 1 TABLET BY MOUTH DAILY IN THE MORNING 90 tablet 1 4 Active fluticasone (Flonase) 50 MCG/ACT nasal spray SHAKE LIQUID AND USE 1 SPRAY IN EACH NOSTRIL IN THE MORNING 48 g 1 4 Active meloxicam (Mobic) 7.5 MG tablet TAKE 1 TABLET BY MOUTH TWICE DAILY WITH FOOD NEEDED FOR PAIN 60 tablet 4 Active levothyroxine (Synthroid, Levoxyl) 100 MCG tablet Take 1 tablet (100 mcg) by mouth Once per day. 90 tablet 4 Active Ventolin HFA 108 (90 Base) MCG/ACT inhalerIndicatio ns:Moderate persistent asthma without complication Inhale 2 puffs every 4 (four) hours if needed for wheezing. INHALE 2 PUFFS BY MOUTH EACH DAY NEEDED FOR WHEEZING OR SHORTNESS OF BREATH 18 g 2 4 Active diphenhydrAMINE (Banophen) 25 MG tablet Take 1 tablet (25 mg) by mouth every 6 (six) hours if needed for itching. TAKE 1 TABLET BY MOUTH 1 TIME NEEDED FOR ALLERGIC REACTIONTAKE 30 tablet 5 4 Active Vraylar 3 MG capsule Take 1 capsule by mouth at bedtime. 4 Active zolpidem CR (Ambien CR) 12.5 MG ER tablet Take 12.5 mg by mouth at bedtime. 5 Active Active Problems Problem Noted Date Diagnosed Date Multinodular goiter 03/16/2018 Generalized anxiety disorder 12/16/2017 Gastroesophageal reflux disease without esophagi tis 09/01/2017 Encounters Date Type Department Care Team Description 06/02/2024 10:00 AM EST Office Visit [facility] [address] [place] [address] Tiny Richter MD Encounter for annual physical exam (Primary Dx); Dietary counseling; Exercise counseling; Overweight; Generalized anxiety disorder; Chronic nonintractable headache, unspecified headache type 06/02/2024 Travel 05/26/2024 Telephone [facility] [address] [place] [address] Tiny Richter MD Chart Prep 05/24/2024 Patient Outreach [facility] [address] [place] [address] Tiny Richter MD Pre-visit Planning (SDOH negative, Tobacco screening negative) 04/01/2024 10:00 AM EST Office Visit [facility] [address] [place] [phone] Mike Mauricio MD Elevated blood pressure reading in office without diagnosis of hypertension (Primary Dx) 04/01/2024 Travel 03/31/2024 Telephone [facility] [address] [place] [phone] Tiny Richter MD 03/24/2024 Refill [facility] [address] [place] [address] Tiny Richter MD Moderate persistent asthma without complication 03/22/2024 Refill [facility] [address] [place] [address] Tiny Richter MD from Last 3 Months Immunizations Name Administration Dates Next Due HPV, Quadrivalent 03/08/2009,11/27/2008,07/10/19 09 Influenza injectable quadriv alent preservative free 03/21/2021,02/21/2018 Influenza, IIV3, injectable 01/30/2011, 0 Meningococcal ACWY, unspecified 04/26/2009 Novel [id number], all formulations 2008 Tdap 03/16/2018,11/27/2008 Social History Tobacco Use Types Packs/Day Years Used Date Smoking Tobacco: Never Passive Smoke Exposure: Never Smokeless Tobacco: Never Tobacco Cessation:Counseling Given: Not Answered Alcohol Use Standard Drinks/Week Comments Never 0 [...] Orientation Straight 03/09/2022 10 :29 AM EDT Last Filed Vital Signs Vital Sign Reading [...] Mass Index 28.01 06/02/2024 10:06 AM EST Plan of Treatment Upcoming Encounters Date Type Department Care Team ([facility] st Contact Info) Description 08/02/2024 11:00 AM EDT Office Visit [facility] [address] [place] [address] Tiny Richter MD [address] [place] [address] Health Maintenance Due Date Last Done Comments Alcohol/Substance Use Screening 2003 Family Planning (PISQ) 2006 Hepatitis B Vaccines (1 of 3 - 19+ 3-dose series) 2010 Pneumococcal Vaccine: Pediatrics (0 to 5 Years) and At-Risk Patients (6 to 49) Years) (1 of 2 - PCV) 2010 Pap Smear 10/06/2023 10/05/2020 COVID-19 Vaccine ( season) 2024 03/21/2021, 08/14/2020, 07/17/2020 Influenza Vaccine (#1) 2024 , 02/21/2018, 01/30/2011, Additional history exists Depression Monitoring (PHQ-9) 11/30/2024 06/02/2024, 06/02/2024 Tobacco Screening 04/01/2025 04/01/2024 SDOH Screening 05/24/2025 05/24/2024 Depression Screening 06/02/2025 06/02/2024, 06/02/19 Cervical Cancer Screening 10/05/2025 HPV/Cotest 10/05/2025 10/05/2020 DTaP/Tdap/Td Vaccines (3 - Td or Tdap) 03/16/2028 03/16/2018, 11/27/2008 Zoster Vaccines (1 of 2) 2041 RSV Patients and Patients Aged 60 years or older (1 - 1-dose 75+ series) 2066 HPV Vaccines Completed 03/08/2009, 072 05/2008, 07/09/2008 Meningococcal Vaccine Completed 04/26/2009 HIV Screening Completed 10/03/2020 Hepatitis C Screening Completed 10/03/2020 HIB Vaccines Aged Out No longer eligi ble based on patient's age to complete this topic Hepatitis A Vaccines Aged Out No long er eligible based on patient's age to complete this topic IPV Vaccines Aged Out No longer eligi ble based on patient's age to complete this topic RSV under 20 months Aged Out No longe r eligible based on patient's age to complete this topic Rotavirus Vaccines Aged Out No longer eligible based on patient's age to complete this topic Procedures Procedure Name Priority Date/Time Associated Diagnosis Comments HPV MRNA E6/E7 Routine 10/05/2020 11:02 AM EDT THINPREP PAP Routine 10/05/2020 11:02 AM EDT ZZZ HISTORICAL HEPATITIS C AB W/REFL TO HCV RNA, QN, PCR Routine 10/03/2020 2:30 PM EDT HIV 1/2 ANTIGEN/ANTIBODY, FOURTH GENERATION W/RFL Routine 10/03/2020 2:30 PM EDT from Last 3 Months or Most Recently Relevant to Health Maintenance Results * THINPREP PAP (10/05/2020 11:02 AM EDT) Clinical Information: None given [facility] COMMENT SEE COMMENT [facility] Comment: EXPLANATORY NOTE: ? The Pap is a screening test for cervical cancer. It is ?? not a diagnostic test and is subject to false negative ?? and false positive results. It is most reliable when a ?? satisfactory sample, regularly obtained, is submitted ?? with relevant clinical findings and history, and when ?? the Pap result is evaluated along with historic and ?? current clinical information. ?? Transfer Iron Operator : SEE COMMENT [facility] Comment: NSS, CT(ASCP) CT screening location: [address] ??[id number] Interpretation/R esult: Negative for intraepithelial lesion or malignancy. [facility] LMP: NONE [facility] Prev. BX: NONE [facility] Prev. PAP: NONE [facility]IV[facility] SOURCE: None given [facility] Statement Of Adequacy: SEE COMMENT [facility] Comment: Satisfactory for evaluation. Endocervical/transformation zone component present. Age and/or menstrual status not provided 10/05/2020 11:0 2 AM EDT Tiny Richter MD LAB PATHOLOGY ORDERABLES Chiquita l Result Performing Organization Address [facility] Co de Phone Number [facility] [address] * HPV mRNA E6/E7 (10/05/2020 11:02 AM EDT) Pathologist [facility] HPV nRNA E6/E7 Not Detected Not Detected [facility] Comment: Methodology: Rag Cutting Machine Operator-Mediated Amplification This assay detects E6/E7 viral messenger RNA (mRNA) from 14 high-risk HPV types (16,18,31,33,35,39,45,51,52,56,58,59,66,68). ? The analytical performance characteristics of this assay have been determined by [employer]. The modifications have not been cleared or approved by the FDA. This assay has been validated pursuant to the CLIA regulations and is used for clinical purposes. ?? For additional information, please refer to http://education.GFRANQ/faq/WGB387v7 (This link if provided for information/ educational purposes only.) NO COLLECTION DATE RECEIVED. WE HAVE USED THE DATE THE SPECIMEN WAS RECEIVED BY THIS LABORATORY THE COLLECTION DATE. IF THIS IS INCORRECT, PLEASE CONTACT CLIENT SERVICES. PHONE NUMBER: ?? 10/05/2020 11:0 2 AM EDT Tiny Richter MD LAB BLOOD ORDERABLES Final Re sult Performing Organization Address [facility] Co de Phone Number [facility] [address] * HEPATITIS C AB W/REFL TO HCV RNA, QN, PCR (10/03/2020 2:30 PM EDT) Pathologist [facility] HEPATITIS C ANTIBODY NON-REACT [facility] NON-REACT [facility] INDEX 0.01 <1.00 [facility] Comment: ?? HCV antibody was non-reactive. There is no laboratory ?? evidence of HCV infection. ?? In most cases, no further action is required. However, if recent HCV exposure is suspected, a test for HCV RNA (test code 10392) is suggested. ?? For additional information please refer to http://[employer].GFRANQ/faq/YBR56b2 (This link is being provided for informational/ educational purposes only.) ?? 10/03/2020 2:30 PM EDT us Tiny Richter MD HISTORICAL/NON ORDERABLE LABS Final Result [facility] [address] [place] [address], * HIV 1/2 ANTIGEN/ANTIBODY,FOURTH GENERATION W/RFL (10/03/2020 2:30 PM EDT) HIV-1/2 ANTIGEN AND ANTIBODIES, 4TH GENERATION W/ REFLEX NON-REACT [facility] NON-REACT [facility] Comment: HIV-1 antigen and HIV-1/HIV-2 antibodies were not detected. There is no laboratory evidence of HIV infection. ?? PLEASE NOTE: This information has been disclosed to you from records whose confidentiality may be protected by state law. ??If your state requires such protection, then the state law prohibits you from making any further disclosure of the information without the specific written consent of the person to whom it pertains, or as otherwise permitted by law. A general authorization for the release of medical or other information is NOT sufficient for this purpose. ? For additional information please refer to http://education.[employer]Art/faq/ADB481 (This link is being provided for informational/ educational purposes only.) ? The performance of this assay has not been clinically validated in patients less than 2 years old. ?? 10/03/2020 2:30 PM EDT us Tiny Richter MD LAB BLOOD ORDERABLES Final Re sult [facility] [address] from Last 3 Months or Most Recently Relevant to Health Maintenance Insurance [facility] C3 Care Teams Supervising Airplane Pilot Relationship Specialty Start Date End Date Tiny Richter MD [address] [place] [phone] PCP - General Family Medicine 09/01/17
--- OUTSIDE RECORDS SUMMARY | 2024-06-07 15:07 | XMS_ITS | Encounter Summary ---
Author Organization [employer] Address [address] [place] [address] Care Team Providers Care Anthropometrist Name Role Phone Tiny Richter MD Primary Care Provider [phone] Reason for Visit * Reason Comments Pre-visit Planning SDOH negative, Tobac co screening negative Encounter Details Date Type Department Care Team ([facility] st Contact Info) Description 05/24/2024 Patient Outreach [facility] [address] [place], [place] [phone] Tiny Richter MD [address] [place] [address] Pre-visit Planning (SDOH negative, Tobacco screening negative) Social History Tobacco Use Types Packs/Day Years [...] AM EDT documented as of this encounter Progress Notes * Leslye Holm - 05/24/2024 9:15 AM EST LUCAS Finley placed successful outbound call to patient for pre-visit planning. Patient name and confirmed. Patient confirms appt date and time, and has transportation arrangements. Biggest concern for appointment at this time is no concerns. Appropriate screenings completed in anticipation ofappointment. documented in this encounter Plan of Treatment Upcoming Encounters Date Type Department Care Team (Late st Contact Info) Description 08/02/2024 11:00 AM EDT Office Visit [facility] [address] [place] [address] Tiny Richter MD [address] [place] [address] documented as of this encounter Visit Diagnoses Not on filedocumented in this encounter Care Teams Anthropometrist Relationship Specialty Start Date End Date Tiny Richter MD [address] [place] [address] PCP - General Family Medicine 09/01/17 documented as of this encounter
[2024-06-07 15:14] LABS: Anion Gap 12 (12-20); Blood Urea Nitrogen 14 mg/dL (9-16); Calcium 9.6 mg/dL (8.4-10.2); Carbon Dioxide 25 mmol/L (22-29); Chloride 104 mmol/L (96-108); Cholesterol 170 mg/dL (<200); Estimated Glomerular Filt Rate > 60; Glucose Fasting 91 mg/dL (60-99); HDL Cholesterol 39 mg/dL (>40); LDL Cholesterol Calculated 100 mg/dL (<100); Potassium 3.9 mmol/L (3.3-5.1); Sodium 137 mmol/L (135-145); Triglycerides 158 mg/dL (<150)
[2024-06-07 15:28] LABS: TSH reflex Free T4 4.93 uIU/mL (0.32-4.0)
[2024-06-07 16:13] LABS: Free T4 (Free Thyroxine) 0.88 ng/dL (0.71-1.85)
[2024-06-07 17:08] LABS: CT PCR NOT DETECTED (Not Detect.); NG PCR NOT DETECTED (Not Detect.)
[2024-06-08 05:25] LABS: Syphilis Screen Nonreactive (Nonreactive)
[2024-06-08 05:45] LABS: HBS Num1 3.48 mIU/mL (0-7.99); HIV AB/AG Nonreactive (Nonreactive); HIV Num 1 0.06 S/CO (0.00-0.99); ~HepC Num1 0.27 S/CO (0.00-0.79); ~Hepatitis B Surface Antibody NONREACTIVE (Nonreactive); ~Hepatitis C Antibody Nonreactive (Nonreactive)
== END 2024-06-07 13:00 | disposition home or self-care (01) ==
LOC: HO.CHCLDS 12:59
PROVIDERS: Visit Provider Pediatrics
DX: Z00.00 Encounter for general adult medical examination without abnormal findings (principal)
CPT/HCPCS: 36415; 80048; 80061; 84439; 84443; 86706; 86780; 86803; 87389; 87491; 87591

== ENCOUNTER 2024-11-01 16:36 | Outpatient (REF) | payer MEDICAID, SELFPAY ==
--- OUTSIDE RECORDS SUMMARY | 2024-11-01 18:50 | XMS_ITS | Clinical Summary ---
Author Organization [email or web address] Address [address] [place] [address] Care Team Providers Care Ladies Attendant Name Role Phone Tiny Richter MD Primary Care Provider [phone] Allergies Active Allergy Reactions Criticality Noted Date Comments Penicillins Hives High 10/28/2015 Medications omeprazole OTC (PriLOSEC OTC) 20 MG EC tablet Take 1 tablet (20 mg) by mouth before breakfast and before evening meal. 180 tablet 2 08/11/19 23 Active diphenhydrAMINE (BENADryl) 25 MG tablet TAKE 1 TABLET BY MOUTH 1 TIME NEEDED FOR ALLERGIC REACTION 09/11/19 23 Active zolpidem (Ambien) 10 MG tablet Take 10 mg by mouth if needed at bedtime. 11/07/19 23 Active propranolol LA (Inderal LA) 80 MG 24 hr capsule Take 80 mg by mouth at bedtime. 10/10/19 23 Active omeprazole (PriLOSEC) [address] capsule TAKE 1 CAPSULE BY MOUTH BEFORE BREAKFAST AND 1 CAPSULE BEFORE DINNER 11/07/19 23 Active mupirocin (Bactroban) 2 % ointment APPLY SMALL AMOUNT TOPICALLY TO THE AFFECTED AREA TWICE DAILY 11/29/19 23 Active gabapentin (Neurontin) 300 MG capsule Take 300 mg by mouth at bedtime. 11/13/19 23 Active clonazePAM (KlonoPIN) 0.5 MG tablet Take 0.5 mg by mouth if needed in the morning and at bedtime. 11/13/19 23 Active Adderall XR 30 MG 24 hr capsule Take 30 mg by mouth in the morning. 11/13/19 23 Active ARIPiprazole (Abilify) 5 MG tablet Take 5 mg by mouth in the morning. 11/07/19 23 Active cetirizine (ZyrTEC) 10 MG tablet TAKE 1 TABLET BY MOUTH DAILY IN THE MORNING 90 tablet 1 12/01/19 24 Active fluticasone (Flonase) 50 MCG/ACT nasal spray SHAKE LIQUID AND USE 1 SPRAY IN EACH NOSTRIL IN THE MORNING 48 g 1 12/01/19 24 Active meloxicam (Mobic) 7.5 MG tablet TAKE 1 TABLET BY MOUTH TWICE DAILY WITH FOOD NEEDED FOR PAIN 60 tablet 03/24/20 24 Active levothyroxine (Synthroid, Levoxyl) 100 MCG tablet Take 1 tablet (100 mcg) by mouth Once per day. 90 tablet 03/24/20 24 Active diphenhydrAMINE (Banophen) 25 MG tablet Take 1 tablet (25 mg) by mouth every 6 (six) hours if needed for itching. TAKE 1 TABLET BY MOUTH 1 TIME NEEDED FOR ALLERGIC REACTIONTAKE 30 tablet 5 03/24/20 24 Active Vraylar 3 MG capsule Take 1 capsule by mouth at bedtime. 04/14/20 24 Active zolpidem CR (Ambien CR) 12.5 MG ER tablet Take 12.5 mg by mouth at bedtime. 05/29/19 25 Active levothyroxine (Synthroid, Levoxyl) 100 MCG tablet Take 1 tablet (100 mcg) by mouth before breakfast. 90 tablet 3 06/12/19 25 Active cholecalciferol VITAMIN D (Vitamin D-3) 50 MCG (2000 UT) capsule TAKE 1 CAPSULE BY MOUTH IN THE MORNING 90 capsule 1 07/18/19 25 Active EPINEPHrine (Epipen) 0.3 MG/0.3ML injection syringe Inject 0.3 mL (0.3 mg) as directed 1 (one) time for 1 dose. 1 each 1 08/03/19 25 Active Ventolin HFA 108 (90 Base) MCG/ACT inhalerIndicati ons:Moderate persistent asthma without complication INHALE 2 PUFFS BY MOUTH EVERY 4 HOURS IF NEEDED FOR WHEEZING OR SHORTNESS OF BREATH 18 g 2 10/25/19 25 Active Drospirenone (Slynd) 4 MG tablet Take 1 tablet by mouth Once per day. 28 tablet 11 11/02/19 25 Active Ventolin HFA 108 (90 Base) MCG/ACT inhalerIndicati ons:Moderate persistent asthma without complication Inhale 2 puffs every 4 (four) hours if needed for wheezing. 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 Encounters Date Type Department Care Team Description 11/01/2024 11:30 AM EDT Office Visit [facility] MEDICINE [address] [place] [phone] Juliet Freeman CNM Family planning counseling (Primary Dx); Pelvic pain; Encntr screen for infections w sexl mode of transmiss 11/01/2024 Orders Only [facility] [address] [place] [address] Tiny Richter MD Ventral hernia without obstruction or gangrene (Primary Dx) 11/01/2024 Travel 11/01/2024 Results Follow-Up [facility] [address] [place] [address] Abdomen Pelvis w/ Contrast 10/31/2024 Telephone [facility] MEDICINE [address] [place] [phone] Tiny Richter MD chartprep 10/24/2024 Refill [facility] [address] [place] [address] Love Morrison MD Moderate persistent asthma without complication 10/19/2024 Telephone [facility] WALK-IN CENTER [address] [place] [phone] Mike Mauricio MD 10/19/2024 Telephone [facility] [address] [place] [address] [phone] ABDOMEN ORDER 10/04/2024 Telephone [facility] MEDICINE [address] [place] [phone] Tiny Richter MD No Show 09/18/2024 11:15 AM EDT Office Visit [facility] OPTOMETRY [address] [place] [address] Vaishnavi Ledezma, OD Intermittent exotropia, alternating (Primary Dx); Hypermetropia, bilateral; Congenital hypertrophy of retinal pigment epithelium; Nevus of choroid of left eye 09/18/2024 Travel 08/24/2024 Telephone [facility] [address] [place] [address] ABDOMEN ORDER 08/03/2024 Telephone [facility] MEDICINE [address] [place] [address] Tiny Richter MD Referral 08/02/2024 11:00 AM EDT Office Visit [facility] MED & PEDS [address] [place], [place] [phone] Tiny Richter MD Multinodular goiter (Primary Dx); Ventral hernia without obstruction or gangrene; Encounter for immunization 08/02/2024 Travel from Last 3 Months Immunizations Immunization Administration Dates Next Due HPV, Quadrivalent 03/08/2009,11/27/2008,07/10/19 09 Hep B, adult 08/02/2024 Influenza injectable quadriv alent preservative free 03/21/2021,02/21/2018 Influenza, IIV3, injectable 01/30/2011, 0 Meningococcal ACWY, unspecified 04/26/2009 Novel [id number], all formulations 2008 Tdap 03/16/2018,11/27/2008 Social History [...] your housing situation today? I have katarina sing 05/24/[address] you li [...] Access Q2 Not on file 05/24/2024 Comments No Intention Date Recorded No desire to become (finding) 0 11/01/2024 Sex and Gender Information Value Date Recorded Sex Assigned at Female 03/09/2022 10:29 AM EDT Legal Sex Female 10:29 AM EDT Gender Identity Female 03/09/2022 10:29 AM EDT Sexual Orientation Straight 03/09/2022 10 :29 AM EDT Last Filed Vital Signs Vital Sign Reading Time Taken Comments Blood Pressure 130/80 11/01/2024 11:17 AM EDT Pulse 94 11/01/2024 11:17 AM EDT Temperature 36.7 C (98.1 F) 11/01/2024 11:17 AM EDT Respiratory Rate 20 11/01/2024 11:17 AM EDT Oxygen Saturation 98% 11/01/2024 11:17 AM EDT Inhaled Oxygen Concentration - - Weight 69.6 kg (153 lb 6.4 oz) 11/01/2024 11:17 AM EDT Height 147.3 cm (4' 10 ) 11/01/2024 11:17 AM EDT Body Mass Index 32.06 11/01/2024 11:17 AM EDT Plan of Treatment Upcoming Encounters Date Type Department Care Team (Late st Contact Info) Description 11/14/2024 11:30 AM EDT Office Visit [facility] MED & PEDS [address] [place], [place] [phone] Tiny Richter MD [address] [place], [place] [phone] 11/20/2024 11:00 AM EDT Office Visit [facility] MEDICINE [address] [place] [address] Juliet Freeman, CNM [address] [place] [address] 03/22/2025 10:30 AM EST Office Visit [facility] OPTOMETRY [address] [place], [place] [phone] Vaishnavi Ledezma, OD [address] [place] [address] Health Maintenance Due Date Last Done Comments Disability Screening 1991 Alcohol/Substance Use Screening 2003 Pneumococcal Vaccine: Pediatrics (0 to 5 Years) and At-Risk Patients (6 to 49) Years (1 of 2 - PCV) 2010 COVID-19 Vaccine ( - season) 2024 03/21/2021, 08/14/2020, 07/17/2020 Hepatitis B Vaccines (2 of 3 - 19+ 3-dose series) 08/30/2024 08/02/2024 Depression Monitoring 11/30/2024 06/02/2024, 025 Influenza Vaccine (Season Ended) 2025 03/21/2021, 02/21/2018, 01/30/2011, Additional history exists SDOH Screening 05/24/2025 05/24/2024 Cervical Cancer Screening 10/05/2025 HPV/Cotest 10/05/2025 10/05/2020 Pap Smear 10/05/2025 10/05/2020 Family Planning (PISQ) 11/01/2025 11/01/2024 Tobacco Screening 11/01/2025 11/01/2024 DTaP/Tdap/Td Vaccines (3 - Td or Tdap) 03/16/2028 03/16/2018, 11/27/2008 Zoster Vaccines (1 of 2) 2041 RSV Patients and Patients Aged 60 years or older (1 - 1-dose 75+ series) 2066 HPV Vaccines Completed 03/08/2009, 11/08, 07/09/2008 Meningococcal Vaccine Completed 04/26/2009 HIV Screening Completed 06/07/2024, 10/03/2020 Hepatitis C Screening Completed 06/07/2024, 021 HIB Vaccines Aged Out No longer eligi ble based on patient's age to complete this topic Hepatitis A Vaccines Aged Out No long er eligible based on patient's age to complete this topic IPV Vaccines Aged Out No longer eligi ble based on patient's age to complete this topic Meningococcal B Vaccine Aged Out No l onger eligible based on patient's age to complete this topic RSV under 20 months Aged Out No longe r eligible based on patient's age to complete this topic Rotavirus Vaccines Aged Out No longer eligible based on patient's age to complete this topic Procedures Procedure Name Priority Date/Time Associated Diagnosis Comments CT ABDOMEN PELVIS W CONTRAST Routine 09/26/2024 Ventral hernia without obstruction or gangrene OCT, RETINA - OS - LEFT EYE Routine 09/18/2024 11:15 AM EDT Nevus of choroid of left eye HEPATITIS C AB W/REFL TO HCV RNA, QN, PCR Routine 06/07/2024 1:01 PM EST Encounter for annual physical exam HIV 1/2 ANTIGEN/ANTIBODY, FOURTH GENERATION W/RFL Routine 06/07/2024 1:01 PM EST Encounter for annual physical exam HPV MRNA E6/E7 Routine 10/05/2020 11:02 AM EDT THINPREP PAP Routine 10/05/2020 11:02 AM EDT from Last 3 Months or Most Recently Relevant to Health Maintenance Results * CT Abdomen Pelvis w/ Contrast (09/26/2024) Anatomical Region Laterality Modality Body, Pelvis, Abdomen Computed T omography Mike Mauricio MD IMG CT PROCEDURES Final Result * OCT, Retina - OS - Left Eye (09/18/2024 11:15 AM EDT) Narrative Vaishnavi Ledezma, OD - 09/21/2024 1:58 PM EDT Images from the original result were not included. OCT RETINA INTERPRETATION Reliability: OS: SS 30, adequate quality scan Test findings: OS: Mildly elevated choroidal nevus with large drusenoid PEDs, (-) IRF/SRF, (-) lipofuscin. Baseline. Impression and Plan: Choroidal nevus left eye (OS). Monitor in 6 months. Vaishnavi Ledezma OD OPHTH TOMOGRAPHY Final Result * Hepatitis C Antibody with Reflex to HCV, RNA, Quantitative, Real-Time PCR (06/07/2024 1:01 PM EST) Hepatitis C Antibody Nonreactive Nonreactive [facility] Comment:Antibodies to HCV no t detected; does not exclude early acuteHCV infection. Blood Venous blood specimen / Unknown 06/07/2024 1:01 PM EST 06/07/2024 2:37 PM EST Tiny Richter MD LAB BLOOD ORDERABLES Final Re sult [facility] [address] [place] [phone] * HIV-1/2 Antigen and Antibodies, Fourth Generation, with Reflexes (06/07/2024 1:01 PM EST) HIV AB/AG Nonreactive Nonreactive [facility] Comment:HIV-1 p24 Ag and/or HIV-1/HIV-2 Ab not detected.A test result that is nonreactive does not exclude thepossibility of exposure to or infection with HIV-1 and/orHIV-2. Nonreactive results in this assay for individualswith prior exposure to HIV-1 and/or HIV-2 may be due toantigen and antibody levels that are below the limit ofdetection of this assay.The Hachimenroppi HIV Ag/Ab Combo assay result andsupplemental assay results should be interpreted inconjunction with the patient's clinical presentation,history and other laboratory results. If the results areinconsistent with clinical evidence, additional testing issuggested to confirm the result. Blood Venous blood specimen / Unknown 06/07/2024 1:01 PM EST 06/07/2024 2:37 PM EST Tiny Richter MD LAB BLOOD ORDERABLES Final Re sult [facility] [address] [place] [address] [phone] * THINPREP PAP (10/05/2020 11:02 AM EDT) Clinical Information: None given [facility] COMMENT SEE COMMENT [facility] Comment: EXPLANATORY NOTE: The Pap is a screening test for cervical cancer. It is not a diagnostic test and is subject to false negative and false positive results. It is most reliable when a satisfactory sample, regularly obtained, is submitted with relevant clinical findings and history, and when the Pap result is evaluated along with historic and current clinical information. Molding Fitter : SEE COMMENT [facility] Comment: NSS, CT(ASCP) CT screening location: [place] [address] Interpretation/R esult: Negative for intraepithelial lesion or malignancy. [facility] LMP: NONE GIVEN [facility] Prev. BX: NONE GIVEN [facility] Prev. PAP: NONE GIVEN [facility] SOURCE: None given [facility] Statement Of Adequacy: SEE COMMENT [facility] Comment: Satisfactory for evaluation. Endocervical/transformation zone component present. Age and/or menstrual status not provided 10/05/2020 11:0 2 AM EDT us Tiny Richter MD LAB PATHOLOGY ORDERABLES Chiquita l Result Performing Organization Address City/[facility]/ZIP Co de Phone Number [facility] [address] * HPV mRNA E6/E7 (10/05/2020 11:02 AM EDT) HPV nRNA E6/E7 Not Detected Not Detected [facility] Comment: Methodology: Environmental Science Instructor-Mediated Amplification This assay detects E6/E7 viral messenger RNA (mRNA) from 14 high-risk HPV types (16,18,31,33,35,39,45,51,52,56,58,59,66,68). The analytical performance characteristics of this assay have been determined by [employer]. The modifications have not been cleared or approved by the FDA. This assay has been validated pursuant to the CLIA regulations and is used for clinical purposes. For additional information, please refer to http://education.Embedly/faq/PXL952h7 (This link if provided for information/ educational purposes only.) NO COLLECTION DATE RECEIVED. WE HAVE USED THE DATE THE SPECIMEN WAS RECEIVED BY THIS LABORATORY THE COLLECTION DATE. IF THIS IS INCORRECT, PLEASE CONTACT CLIENT SERVICES. PHONE NUMBER: 10/05/2020 11:0 2 AM EDT us Tiny Richter MD LAB BLOOD ORDERABLES Final Re sult [facility] [address] from Last 3 Months or Most Recently Relevant to Health Maintenance Insurance [facility] [place] [address] GILSON BARONE [id number] Care Teams Ladies Attendant Relationship Specialty Start Date End Date Tiny Richter MD [address] [place] [address] [place] [id number] PCP - General Family Medicine 09/01/17
[2024-11-01 21:57] LABS: CT PCR NOT DETECTED (Not Detect.); NG PCR NOT DETECTED (Not Detect.)
[2024-11-02 15:43] LABS: Trichomonas vaginalis RNA NOT DETECTED (NOT DETECTED)
== END 2024-11-01 16:37 | disposition home or self-care (01) ==
LOC: HO.HHCLNP 16:36
PROVIDERS: Visit Provider Advanced Practice Midwife
DX: Z11.3 Encounter for screening for infections with a predominantly sexual mode of transmission (principal)
CPT/HCPCS: 87491; 87591; 87661

== ENCOUNTER 2024-11-14 13:48 | Outpatient (REF) | payer MEDICAID, SELFPAY ==
--- OUTSIDE RECORDS SUMMARY | 2024-11-14 14:39 | XMS_ITS | Clinical Summary ---
Author Organization [facility] Address [address] [place] [phone] Phone Care Team Providers Care Assistant Produce Manager Name Role Phone Kofi Burks MD Primary Care Provider Allergies Active Allergy Reactions Criticality Noted Date Comments Penicillins 03/31/2024 Encounters Date Type Department Care Team Description 10/27/2024 1:07 PM EDT - 10/27/2024 11:59 PM EDT Hospital Encounter [facility] CT Scan [address] [place] [phone] Ventral hernia without obstruction or gangrene Discharge Disposition: Home or Self Care from Last 3 Months Surgical History Surgery Date Site/Laterality Comments TONSILLECTOMY ADENOIDECTOMY, BILATERAL MYRINGOTOMY AND TUBES PROCEDURE: [place] TONSILLECTOMY & ADENOIDECTOMY <AGE 13 OTHER SURGICAL HISTORY 1992 Bilateral PROCEDURE: ---- OTHER ----; COMMENT: eye Medical History Medical History Date Comments Disease of thyroid gland Asthma Social History Tobacco Use Types Packs/Day Years Used Date Smoking Tobacco: Never Smokeless Tobacco: Never Tobacco Cessation:Counseling Given: Not Answered Alcohol Use Standard Drinks/Week Comments Yes 0 (1 standard drink = 0.6 oz pur e alcohol) Comments Unknown Sex and Gender Information Value Date Recorded Sex Assigned at Not on file Legal Sex Female 5:37 AM EST Gender Identity Not on file Sexual Orientation Not on file Obstetrics History Last Filed Vital Signs Vital Sign Reading Time Taken Comments Blood Pressure 105/79 03/31/2024 2:46 AM EST Pulse 75 03/31/2024 2:46 AM EST Temperature 36.8 C (98.2 F) 03/31/2024 2:46 AM EST Respiratory Rate 18 03/31/2024 2:46 AM EST [...] 5 Years) and At-Risk Patients (6 to 49 Years) (1 of 2 - PCV) 2010 Cervical Cancer Screening: Pap Smear 01/05/2012 Social Influencers of Health Screening 04/12/2022 COVID-19 Vaccine ( season) 2024 03/21/2021, 08/14/2020, 07/17/2020 Hepatitis B Vaccines (2 of 3 - 19+ 3-dose series) 08/30/2024 08/02/2024 Influenza Vaccine (#1) 2025 , 02/21/2018, 01/30/2011, Additional history exists Depression Screening 06/02/2025 06/02/2024 DTaP,Tdap,and Td Vaccines (3 - Td or Tdap) 03/16/2028 03/16/2018, 11/27/2008 HPV Vaccines Completed 03/08/2009, 11/08, 07/09/2008 Meningococcal ACWY Vaccine Completed 04/26/2009 HIV Screening Completed 06/07/2024, 10/03/2020 Hepatitis C Screening Completed 06/07/2024 HIB Vaccines Aged Out No longer eligi [...] 20 months Aged Out No longer eligible based on patient's age to complete this topic Varicella Vaccines Aged Out No longer eligible based on patient's age to complete this topic Procedures Procedure Name Priority Date/Time Associated Diagnosis Comments CT ABDOMEN PELVIS W CONTRAST Routine 10/27/2024 1:39 PM EDT Ventral hernia without obstruction or gangrene from Last 3 Months Results * CT Abdomen Pelvis w Contrast (10/27/2024 1:39 PM EDT) Anatomical Region Laterality Modality Body Computed Tomogra phy 10/30/2024 11:2 8 AM EDT Impressions 10/30/2024 11:34 AM EDT Small fat-containing umbilical hernia. -------- FINAL REPORT -------- Dictated By: Allison Collisn Dictated Date: 10/30/2024 11:28 ET Assigned Physician: Allison Collins Reviewed and Electronically Signed By: Allison Collins Signed Date: 10/30/2024 11:34 ET Workstation ID: [id number] Transcribed By: Self Edit Transcribed Date: 10/30/2024 11:28 ET Narrative 10/30/2024 11:34 AM EDT PROCEDURE: CT ABDOMEN/PELVIS WITH CONTRAST INDICATION: R/O HERNIA TECHNIQUE: CT of the abdomen and pelvis following the intravenous administration of 90cc Isovue 370. Multiplanar reformats. The examination was performed utilizing dose reduction techniques. Total DLP 1102 COMPARISON: No priors available. FINDINGS: LOWER THORAX: Atelectasis at the lung bases. HEPATOBILIARY: No focal liver lesions. Cholecystectomy clips. SPLEEN: No focal lesion. PANCREAS: No focal mass or ductal dilatation. ADRENALS: No nodules. KIDNEYS/URETERS: No hydronephrosis, stones, or solid mass. PELVIC ORGANS/BLADDER: Unremarkable. PERITONEUM / RETROPERITONEUM: No ascites or free air. No retroperitoneal lymphadenopathy. VESSELS: Scattered atherosclerotic calcifications throughout the aorta and its major branches. No aneurysm. GI TRACT: No bowel distention or wall thickening. Normal appendix. BONES AND SOFT TISSUES: Scattered degenerative changes seen throughout the bones. Fat-containing umbilical hernia. Procedure Note Allison Collins MD - 10/30/2024 PROCEDURE: CT ABDOMEN/PELVIS WITH CONTRAST INDICATION: R/O HERNIA TECHNIQUE: CT of the abdomen and pelvis following the intravenousadministration of 90cc Isovue 370. Multiplanar reformats. The examinationwas performed utilizing dose reduction techniques. Total DLP 1102 COMPARISON: No priors available. FINDINGS: LOWER THORAX: Atelectasis at the lung bases. HEPATOBILIARY: No focal liver lesions. Cholecystectomy clips. SPLEEN: No focal lesion. PANCREAS: No focal mass or ductal dilatation. ADRENALS: No nodules. KIDNEYS/URETERS: No hydronephrosis, stones, or solid mass. PELVIC ORGANS/BLADDER: Unremarkable. PERITONEUM / RETROPERITONEUM: No ascites or free air. No retroperitoneallymphadenopathy. VESSELS: Scattered atherosclerotic calcifications throughout the aorta andits major branches. No aneurysm. GI TRACT: No bowel distention or wall thickening. Normal appendix. BONES AND SOFT TISSUES: Scattered degenerative changes seen throughout thebones. Fat-containing umbilical hernia. IMPRESSION: Small fat-containing umbilical hernia. -------- FINAL REPORT -------- Dictated By: Allison Collins Dictated Date: 10/30/2024 11:28 ET Assigned Physician: Allison Collins Reviewed and Electronically Signed By: Allison Collins Signed Date: 10/30/2024 11:34 ET Workstation ID: [id number] Transcribed By: Self Edit Transcribed Date: 10/30/2024 11:28 ET Tiny Richter MD IM CT PROCEDURES Final Resul t from Last 3 Months Insurance MEDICAID - [place] Care Teams Assistant Produce Manager Relationship Specialty Start Date End Date Kofi Burks MD [address] [place] [address] [facility] - General 09/20/14
--- OUTSIDE RECORDS SUMMARY | 2024-11-14 14:39 | XMS_ITS | Clinical Summary ---
Author Organization [employer] Address [address] [facility] [address] [place] [address] Care Team Providers Care Ruffler Name Role Phone Tiny Richter MD Primary Care Provider Allergies Active Allergy [...] Encounters Date Type Department Care Team Description 11/14/2024 11:30 AM EDT Office Visit [facility] [address] [place], [place] [phone] Tiny Richter MD Autoimmune hypothyroidism (Primary Dx); Umbilical hernia without obstruction and without gangrene 11/14/2024 Travel 11/13/[address] [facility] [address] [place] [address] Tiny Richter MD chart Prep 11/02/2024 10:45 AM EDT Office Visit [facility] [address] [place] [address] Joseph, Vaishnavi, OD Hypermetropia, bilateral (Primary Dx) 11/01/2024 11:30 AM EDT Office Visit [facility] [address] [place] [address] Juliet Freeman CNM Family planning counseling (Primary Dx); Pelvic pain; Encntr screen for infections w sexl mode of transmiss 11/01/[address] [facility] [address] [place] [address] Tiny Richter MD Ventral hernia without obstruction or gangrene (Primary Dx) 11/01/2024 Travel 11/01/2024 Results Follow-Up [facility] [address] [place] [address] Nicci Luo, BRADFORD CT Abdomen Pelvis w/ Contrast 10/31/2024 Telephone [facility] [address] [place] [phone] Tiny Richter MD chartprep 10/24/2024 Refill [facility] [address] [place] [address] Love Morrison MD Moderate persistent asthma without complication 10/19/2024 Telephone [facility] [address] [place] [address] Mike Mauricio MD 10/19/2024 Telephone [facility] [address] [place] [address] ABDOMEN ORDER 10/04/2024 Telephone [facility] [address] [place] [address] Tiny Richter MD No Show 09/18/2024 11:15 AM EDT Office Visit [facility] [address] [place] [address] Tarka, Vaishnavi, OD Intermittent exotropia, alternating (Primary Dx); Hypermetropia, bilateral; Congenital hypertrophy of retinal pigment epithelium; Nevus of choroid of left eye 09/18/2024 Travel 08/24/2024 [facility] [address] [place] [address] ABDOMEN ORDER from Last 3 Months Immunizations Immunization Administration Dates Next Due HPV, Quadrivalent 03/08/2009,11/27/2008,07/10/19 09 Hep B, adult 08/02/2024 Influenza injectable quadriv alent preservative free 03/21/2021,02/21/2018 Influenza, IIV3, injectable 01/30/2011, 0 Meningococcal ACWY, unspecified 04/26/2009 Novel [id number], all formulations 2008 Tdap 03/16/2018,11/27/2008 Social History [...] Sign Reading Time Taken Comments Blood Pressure 143/83 11/14/2024 11:44 AM EDT Pulse 75 11/14/2024 11:44 AM EDT Temperature 36.1 C (97 F) 11/14/2024 11:44 AM EDT Respiratory Rate 16 11/14/2024 11:44 AM EDT Oxygen Saturation 97% 11/14/2024 11:44 AM EDT Inhaled Oxygen Concentration - - Weight 68.9 kg (152 lb) 11/14/2024 11:44 AM EDT Height 147.3 cm (4' 10 ) 11/01/2024 11:17 AM EDT Body Mass Index 31.77 11/01/2024 11:17 AM EDT Plan of Treatment Upcoming Encounters Date Type Department Care Team (Late st Contact Info) Description 11/20/2024 11:00 AM EDT Office Visit [facility] [address] [place], [place] [phone] Juliet Freeman, ULISSESM [address] [place] [address] 03/22/2025 10:30 AM EST Office Visit [facility] [address] [place], [place] [phone] Vaishnavi Ledezma, OD [address] [place], [place] [phone] Health Maintenance Due Date Last Done Comments Disability Screening 1991 Alcohol/Substance Use Screening 2003 Pneumococcal Vaccine: Pediatrics (0 to 5 Years) and At-Risk Patients (6 to 49) Years (1 of 2 - PCV) 2010 COVID-19 Vaccine ( - season) 2024 03/21/2021, 08/14/2020, 07/17/2020 Hepatitis B Vaccines (2 of 3 - 19+ 3-dose series) 08/30/2024 08/02/2024 Depression Monitoring 11/30/2024 06/02/2024, 025 Influenza Vaccine (#1) 2025 , 02/21/2018, 01/30/2011, Additional history exists SDOH Screening 05/24/2025 05/24/2024 Cervical Cancer Screening 10/05/2025 HPV/Cotest 10/05/2025 10/05/2020 Pap Smear 10/05/2025 10/05/2020 Family Planning (PISQ) 11/01/2025 11/01/2024 Tobacco Screening 11/14/2025 11/14/2024 DTaP/Tdap/Td Vaccines (3 - Td or Tdap) [...] Procedure Name Priority Date/Time Associated Diagnosis Comments TRICHOMONAS VAGINALIS RNA, QUALITATIVE, TMA Routine 11/01/2024 11:38 AM EDT Encntr screen for infections w sexl mode of transmiss CHLAMYDIA/N. GONORRHOEAE RNA, TMA, UROGENITAL Routine 11/01/2024 11:38 AM EDT Encntr screen for infections w sexl mode of transmiss CT ABDOMEN PELVIS W CONTRAST Routine 09/26/2024 [...] Recently Relevant to Health Maintenance Results * Trichomonas RNA (Urine/Vaginal) (11/01/2024 11:38 AM EDT) Trichomas vaginalis RNA, QL, TMA NOT DETECTED NOT DETECTED [facility] Comment:For additional infor shayne, please refer tohttp://education.[employer]/faq/Trichomonastma(This link is being provided for informational/educational purposes only.)THIS TEST WAS PERFORMED AT:[address] [place] [phone] LOWERY MD Swab Vaginal structure / Unknown 11/01/2024 11:38 AM EDT 11/01/2024 4:36 PM EDT Juliet Freeman CNM LAB BODY FLUIDS AND STOOL S ORDERABLES Final Result [facility] [address] [place] [address] [phone] * Chlamydia/N. Gonorrhoeae RNA, TMA, Vagina (11/01/2024 11:38 AM EDT) Pathologist [facility] CT PCR NOT DETECTED Not Detect. [facility] Comment:A not detected test result does not exclude the possibilityof infection because test results can be affected byimproper specimen collection, concurrent antibiotic therapy,or the number of organisms in the specimen which may bebelow the sensitivity of the test. As with many diagnostictests, results from the Xpert CT/NG assay should beinterpreted in conjunction with other laboratory andclinical data available to the clinician.Xpert CT/NG performance has not been evaluated in patientsless than 14 years of age. The assay should not be used forthe evaluationof suspected sexual abuse or for other medico-legalindications. Additional testing is recommended in anycircumstance when false positive or false negative resultscould lead to adverse medical, social or psychologicalconsequences. NG PCR NOT DETECTED Not Detect. [facility] Comment:A not detected test result does not exclude the possibilityof infection because test results can be affected byimproper specimen collection, concurrent antibiotic therapy,or the number of organisms in the specimen which may bebelow the sensitivity of the test. As with many diagnostictests, results from the Xpert CT/NG assay should beinterpreted in conjunction with other laboratory andclinical data available to the clinician.Xpert CT/NG performance has not been evaluated in patientsless than 14 years of age. The assay should not be used forthe evaluationof suspected sexual abuse or for other medico-legalindications. Additional testing is recommended in anycircumstance when false positive or false negative resultscould lead to adverse medical, social or psychologicalconsequences. Swab Vaginal structure / Unknown 11/01/2024 11:38 AM EDT 11/01/2024 4:36 PM EDT Juliet Freeman [facility] MICROBIOLOGY - GENERA L ORDERABLES Final Result [facility] [address] [place] [phone] * CT Abdomen Pelvis w/ Contrast (09/26/2024) [...] Quantitative, Real-Time PCR (06/07/2024 1:01 PM EST) [facility] [address] Hepatitis C Antibody Nonreactive Nonreactive [facility] Comment:Antibodies to HCV no t detected; does not exclude early acuteHCV infection. Blood Venous blood specimen / Unknown 06/07/2024 1:01 PM EST 06/07/2024 2:37 PM EST Tiny Richter MD LAB BLOOD ORDERABLES Final Re sult Performing Organization Address City/[facility]/ZIP Co de Phone Number [facility] [address] [place] [address] [phone] * HIV-1/2 Antigen and Antibodies, Fourth Generation, with Reflexes (06/07/2024 1:01 PM EST) [facility] [address] HIV AB/AG Nonreactive Nonreactive [facility] Comment:HIV-1 p24 Ag and/or HIV-1/HIV-2 Ab not detected.A test result that is nonreactive does not exclude thepossibility of exposure to or infection with HIV-1 and/orHIV-2. Nonreactive results in this assay for individualswith prior exposure to HIV-1 and/or HIV-2 may be due toantigen and antibody levels that are below the limit ofdetection of this assay.The [employer] HIV Ag/Ab Combo assay result andsupplemental assay results should be interpreted inconjunction with the patient's clinical presentation,history and other laboratory results. If the results areinconsistent with clinical evidence, additional testing issuggested to confirm the result. Blood Venous blood specimen / Unknown 06/07/2024 1:01 PM EST 06/07/2024 2:37 PM EST Tiny Richter MD LAB BLOOD ORDERABLES Final Re sult Performing Organization Address City/[facility]/ZIP Co de Phone Number [facility] [address] [place] [address] [phone] * THINPREP PAP (10/05/2020 11:02 AM [...] along with historic and current clinical information. Nursery Technician : SEE COMMENT [facility] Comment: NSS, CT(ASCP) CT screening location: [address] [address] Interpretation/R esult: Negative for intraepithelial lesion or malignancy. [facility] LMP: NONE GIVEN [facility] Prev. BX: NONE [facility]IVEN [facility] Prev. PAP: NONE [facility]IVEN [facility] SOURCE: None given [facility] Statement Of Adequacy: SEE COMMENT [facility] Comment: Satisfactory for evaluation. Endocervical/transformation zone component present. Age and/or menstrual status not provided 10/05/2020 11:0 2 AM EDT us Tiny Richter MD LAB PATHOLOGY ORDERABLES Chiquita oscar Result [facility] [address] * HPV mRNA E6/E7 (10/05/2020 11:02 AM EDT) HPV nRNA E6/E7 Not Detected Not Detected [facility] Comment: Methodology: Office Mail Clerk-Mediated Amplification This assay detects E6/E7 viral messenger RNA (mRNA) from 14 high-risk HPV types (16,18,31,33,35,39,45,51,52,56,58,59,66,68). The analytical performance characteristics of this assay have been determined by [employer]. The modifications have not been cleared or approved by the FDA. This assay has been validated pursuant to the CLIA regulations and is used for clinical purposes. For additional information, please refer to http://education.[employer]/faq/WEF233z3 (This link if provided for information/ educational purposes only.) NO COLLECTION DATE RECEIVED. WE HAVE USED THE DATE THE SPECIMEN WAS RECEIVED BY THIS LABORATORY THE COLLECTION DATE. IF THIS IS INCORRECT, PLEASE CONTACT CLIENT SERVICES. PHONE NUMBER: 10/05/2020 11:0 2 AM EDT Tiny Richter MD LAB BLOOD ORDERABLES Final Re sult [facility] [address] from Last 3 Months or Most Recently Relevant to Health Maintenance Insurance [employer] Care Teams Ruffler Relationship Specialty Start Date End Date Tiny Richter MD [address] [place] [address] PCP - General Family Medicine 09/01/17
[2024-11-14 16:38] LABS: Free T4 (Free Thyroxine) 0.97 ng/dL (0.71-1.85)
== END 2024-11-14 13:49 | disposition home or self-care (01) ==
LOC: HO.CHCLDS 13:48
PROVIDERS: Visit Provider Pediatrics
DX: E04.2 Nontoxic multinodular goiter (principal)
CPT/HCPCS: 36415; 84439; 84443

== ENCOUNTER 2024-12-14 09:58 | Outpatient (AMB) | payer MEDICAID, SELFPAY ==
--- NOTE | 2024-12-14 10:02 | A.OFFVIS_ITS ---
Intake Visit Reasons: Ventral hernia Intake Note: Patient referred by pcp Tiny Ceja for assessment of Ventral hernia. Patient c/o: painful, bulging, bending irritates intestines. Sophie abdomen pelvis CT: 10-30-2024 Rn Womens Health Required: No Accompanied by: Self / Same As Patient Allergies Penicillins Allergy (Intermediate, Verified 12/14/24 10:06) Hives Medication List - Last Reconciled 12/14/24 by Karan Cobos MD albuterol sulfate 90 mcg/actuation (ProAir HFA) 2 puffs inhalation Q6H PRN barium sulfate 2%(w/v) (Readi-Cat 2) 450 mL PO DIRECTED 1 day clonazepam 0.25 mg PO BEDTIME dextroamphetamine-amphetamine 30 mg (Adderall) 30 mg PO DAILY gabapentin 300 mg PO DAILY levothyroxine 100 mcg PO DAILY omeprazole 20 mg PO DAILY zolpidem (Ambien) 10 mg PO BEDTIME PRN HPI HPI Ventral hernia: Details: [age] year old female referred for a ventral hernia. She describes having discomfort on her umbilicus for about 3 years now. She was sent for a CAT scan by her primary care physician and this showed a small fat containing umbilical hernia. She says that she did have surgery for laparoscopic cholecystectomy few years ago. She also had a G-tube placed as a baby because of her being born premature. She said this had removed when she was 9 years old. She describes some chronic discomfort in this area of the G-tube in the left side as well. She denies GI complaints. 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 Review of Systems Const Denies chills and Denies fever(s) Card Denies chest pain, Denies dyspnea and Denies dyspnea on exertion Resp Denies cough, Denies dyspnea and Denies dyspnea on exertion GI Denies hematochezia and Denies change in bowel habits Denies hematuria Musc Denies back pain and Denies limited range of motion Neuro Denies focal weakness and Denies convulsions Psych Details: Insomnia Reports anxiety, Denies depression and Denies mood swings Physical Exam Const Other: Appears overweight General: comfortable and no acute distress Orientation/consciousness: patient oriented x3 Neck Neck: Yes no lymphadenopathy Resp Auscultation: clear to auscultation bilaterally Cardio Rhythm: regular rhythm GI Other: Small, umbilical hernia, palpable with Valsalva, about 1 cm in diameter Palpation (GI): Soft to palpation, nontender and no guarding Neuro General: patient oriented x3 Assessment & Plan Assessment & Plan (1) Reducible umbilical hernia: Code(s): K42.9 - Umbilical hernia without obstruction or gangrene Category: Medical Plan: She has small umbilical hernia, reducible as described above. This is seen on a previous CAT scan from [facility] has a fat containing hernia. This is likely from a port site with her previous laparoscopic cholecystectomy. I explained the technique of umbilical hernia repair with mesh. I reviewed the risks including but not limited to bleeding, infections, recurrence, injury to bowel, as well as the benefits and alternatives. I explained to her what to expect postoperatively. She says she wants to proceed with the repair of the hernia in view of her discomfort. Coding Level of Care Code New Pt Level 3 (64241) Diagnoses Reducible umbilical hernia K42.9
--- OUTSIDE RECORDS SUMMARY | 2024-12-14 10:26 | XMS_ITS | Clinical Summary ---
Author Organization [facility] Address [address] [place] [address] Phone Care Team Providers Care Elementary Instructional Coach Name Role Phone Kofi Burks MD Primary Care Provider [phone] Allergies Active Allergy Reactions Criticality Noted Date Comments Penicillins 03/31/2024 Encounters Date Type Department Care Team Description 10/27/2024 1:07 PM EDT - 10/27/2024 11:59 PM EDT Hospital Encounter [facility] CT Scan [address] [place] [phone] Ventral hernia without obstruction or gangrene Discharge Disposition: Home or Self Care from Last 3 Months Surgical History Surgery Date Site/Laterality Comments TONSILLECTOMY ADENOIDECTOMY, BILATERAL MYRINGOTOMY AND TUBES PROCEDURE: IN TONSILLECTOMY & ADENOIDECTOMY <AGE 12 OTHER SURGICAL [...] Vaccine ( season) 2024 03/21/2021, 08/14/2020, 07/17/2020 Depression Screening 05/10/2024 Hepatitis B Vaccines (2 of 3 - 19+ 3-dose series) 08/30/2024 08/02/2024 Influenza Vaccine (#1) 2025 , 02/21/2018, 01/30/2011, Additional history exists DTaP,Tdap,and Td Vaccines (3 - Td or [...] Signed Date: 10/30/2024 11:34 ET Workstation ID: [id number] Transcribed By: Self Edit Transcribed Date: 10/30/2024 [...] Signed Date: 10/30/2024 11:34 ET Workstation ID: [id number] Transcribed By: Self Edit Transcribed Date: 10/30/2024 11:28 ET us Tiny Richter MD IMG CT PROCEDURES Final Resul t from Last 3 Months Insurance MEDICAID - [place] Care Teams Elementary Instructional Coach Relationship Specialty Start Date End Date Kofi Burks MD [address] [place] [address] PCP - General 09/20/14
--- OUTSIDE RECORDS SUMMARY | 2024-12-14 10:26 | XMS_ITS | Clinical Summary ---
Author Organization [employer] Address [address] [place] [address] Care Team Providers Care Radiology Asst Name Role Phone Tiny Richter MD Primary Care Provider [phone] Allergies Active Allergy Reactions Criticality Noted Date Comments Penicillins Hives High 10/28/2015 Medications omeprazole OTC (PriLOSEC OTC) 20 MG EC tablet Take 1 tablet (20 mg) by mouth before breakfast and before evening meal. 180 tablet 2 3 Active diphenhydrAMINE (BENADryl) 25 MG tablet TAKE 1 TABLET BY MOUTH 1 TIME NEEDED FOR ALLERGIC REACTION 3 Active zolpidem (Ambien) 10 MG tablet Take [...] mg by mouth at bedtime. 3 Active clonazePAM (KlonoPIN) 0.5 MG tablet Take 0.5 mg by mouth if needed in the morning and at bedtime. 3 Active Adderall XR 30 MG 24 hr capsule Take 30 mg by mouth in the morning. 3 Active ARIPiprazole (Abilify) 5 MG tablet Take 5 mg by mouth in the morning. 3 Active cetirizine (ZyrTEC) 10 MG tablet TAKE [...] Once per day. 90 tablet 4 Active diphenhydrAMINE (Banophen) 25 MG tablet [...] mg by mouth at bedtime. 5 Active levothyroxine (Synthroid, Levoxyl) 100 MCG tablet Take 1 tablet (100 mcg) by mouth before breakfast. 90 tablet 3 5 Active cholecalciferol VITAMIN D (Vitamin D-3) 50 MCG (2000 UT) capsule TAKE 1 CAPSULE BY MOUTH IN THE MORNING 90 capsule 1 5 Active EPINEPHrine (Epipen) 0.3 MG/0.3ML injection syringe Inject 0.3 mL (0.3 mg) as directed 1 (one) time for 1 dose. 1 each 1 5 Active Ventolin HFA 108 (90 Base) MCG/ACT inhalerIndicatio ns:Moderate persistent asthma without complication INHALE 2 PUFFS BY MOUTH EVERY 4 HOURS IF NEEDED FOR WHEEZING OR SHORTNESS OF BREATH 18 g 2 5 Active Drospirenone (Slynd) 4 MG tablet Take 1 tablet by mouth Once per day. 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 Encounters Date Type Department Care Team Description 11/17/2024 Telephone [facility] [address] [place] [address] Juliet Freeman CNM Chart Prep 11/14/2024 11:30 AM EDT Office Visit [facility] [address] [place] [address] Tiny Richter MD Autoimmune hypothyroidism (Primary Dx); Umbilical hernia without obstruction and without gangrene 11/14/2024 Results Follow-Up [facility] [address] [place] [address] Tiny Richter MD TSH W/Reflex to FT4 11/14/2024 Orders Only [facility] [address] [place] [address] Tiny Richter MD 11/14/2024 Travel 11/13/2024 Telephone [facility] [address] [place] [address] Tiny Richter MD chart Prep 11/02/2024 10:45 AM EDT Office Visit [facility] [address] [place], [place] [phone] Joseph, Vaishnavi, OD Hypermetropia, bilateral (Primary Dx) 11/01/2024 11:30 AM EDT Office Visit [facility] [address] [place] [address] Juliet Freeman CNM Family planning counseling (Primary Dx); Pelvic pain; Encntr screen for infections w sexl mode of transmiss 11/01/2024 Orders Only [facility] [address] [place] [address] Tiny Richter MD Ventral hernia without obstruction or gangrene (Primary Dx) 11/01/2024 Travel 11/01/2024 Results Follow-Up [facility] [address] [place] [address] Abdomen Pelvis w/ Contrast 10/31/2024 Telephone [facility] [address] [place] [address] Tiny Richter MD chartprep 10/24/2024 Refill [facility] [address] [place], [place] [phone] Love Morrison MD Moderate persistent asthma without complication 10/19/2024 Telephone [facility] [address] [place] [address] Mike Mauricio MD 10/19/2024 [facility] [address] [place] [address] ABDOMEN ORDER 10/04/2024 Telephone [facility] [address] [place] [address] Tiny Richter MD No Show 09/18/2024 11:15 AM EDT Office Visit [facility] [address] [place] [address] Tarka, Vaishnavi, OD Intermittent exotropia, alternating (Primary Dx); Hypermetropia, bilateral; Congenital hypertrophy of retinal pigment epithelium; Nevus of choroid of left eye 09/18/2024 Travel from Last 3 Months Immunizations Immunization Administration Dates Next Due HPV, Quadrivalent 03/08/2009,11/27/2008,07/10/19 09 Hep B, adult 08/02/2024 Influenza injectable quadriv alent preservative free 03/21/2021,02/21/2018 Influenza, IIV3, injectable 01/30/2011, 0 Meningococcal ACWY, unspecified 04/26/2009 Novel [id number], all formulations 2008 Tdap 03/16/2018,11/27/2008 Social History [...] Care Team (Late st Contact Info) Description 03/22/2025 10:30 AM EST Office Visit [facility] [address] [place] [address] Vaishnavi Ledezma, OD [address] [place] [address] Health Maintenance Due Date Last Done Comments Disability Screening 1991 Alcohol/Substance Use Screening 2003 Pneumococcal Vaccine: Pediatrics (0 to 5 Years) and At-Risk Patients (6 to 49) Years (1 of 2 - PCV) 2010 COVID-19 Vaccine ( season) 2024 03/21/2021, 08/14/2020, [...] 75+ series) 2066 HPV Vaccines Completed 03/08/2009, 07/2 05/2008, 07/09/2008 Meningococcal Vaccine Completed 04/26/2009 HIV [...] Procedure Name Priority Date/Time Associated Diagnosis Comments T4, FREE Routine 11/14/2024 1:49 PM EDT TSH W/REFLEX TO FT4 Routine 11/14/2024 1 :49 PM EDT Multinodular goiter TRICHOMONAS VAGINALIS RNA, QUALITATIVE, TMA Routine 11/01/2024 [...] Recently Relevant to Health Maintenance Results * (ABNORMAL) TSH W/Reflex to FT4 (11/14/2024 1:49 PM EDT) TSH reflex Free T4 5.10(H) 0.32 - 4.0 uIU/mL [facility] Blood Venous blood specimen / Unknown 11/14/2024 1:49 PM EDT 11/14/2024 3:03 PM EDT Tiny Richter MD LAB BLOOD ORDERABLES Final Re sult Performing Organization Address [facility] Co de Phone Number [facility] [address] [place] [phone] * T4, Free (11/14/2024 1:49 PM EDT) Free T4 (Free Thyroxine) 0.97 0.71 - 1.85 ng/dL [facility] 11/14/2024 1:49 PM EDT 11/14/2024 3:03 PM EDT Tiny Richter MD LAB BLOOD ORDERABLES Final Re sult Performing Organization Address City/[facility]/ZIP Co de Phone Number [facility] [address] [place] [phone] * Trichomonas RNA (Urine/Vaginal) (11/01/2024 11:38 AM EDT) Trichomas vaginalis RNA, QL, TMA NOT DETECTED NOT DETECTED [facility] Comment:For additional infor shayne, please refer tohttp://education.[employer]/faq/Trichomonastma(This link is being provided for informational/educational purposes only.)THIS TEST WAS PERFORMED AT:[facility] [place] [phone] LOWERY MD Swab Vaginal structure / Unknown 11/01/2024 11:38 AM EDT 11/01/2024 4:36 PM EDT Juliet Lydia HERNANDEZ LAB BODY FLUIDS AND STOOL S ORDERABLES Final Result [facility] [address] [place] [phone] * Chlamydia/N. Gonorrhoeae RNA, TMA, Vagina (11/01/2024 11:38 AM EDT) CT PCR NOT DETECTED Not Detect. [facility] Comment:A not detected test result does [...] psychologicalconsequences. NG PCR NOT DETECTED Not Detect. [facility] Comment:A not detected test result does [...] 4:36 PM EDT Juliet Freeman CNM LAB MICROBIOLOGY - GENERA L ORDERABLES Final Result Performing Organization Address [facility]/ZIP Co de Phone Number [facility] [address] [place] [address] [phone] * CT Abdomen Pelvis w/ Contrast [...] left eye (OS). Monitor in 6 months. Result [facility] Vaishnavi Ledezma OD OPHTH TOMOGRAPHY Final Result * Hepatitis C Antibody with Reflex to HCV, RNA, Quantitative, Real-Time PCR (06/07/2024 1:01 PM EST) Hepatitis C Antibody Nonreactive Nonreactive [facility] Comment:Antibodies to HCV no t detected; does not exclude early acuteHCV infection. Blood Venous blood specimen / Unknown 06/07/2024 1:01 PM EST 06/07/2024 2:37 PM EST Tiny Richter MD LAB BLOOD ORDERABLES Final Re sult Performing Organization Address City/[facility]/ZIP Co de Phone Number [facility] [address] [place] [phone] * HIV-1/2 Antigen and Antibodies, Fourth Generation, with Reflexes (06/07/2024 1:01 PM EST) HIV AB/AG Nonreactive Nonreactive [facility] Comment:HIV-1 p24 Ag and/or HIV-1/HIV-2 Ab not detected.A test result that is nonreactive does not exclude thepossibility of exposure to or infection with HIV-1 and/orHIV-2. Nonreactive results in this assay for individualswith prior exposure to HIV-1 and/or HIV-2 may be due toantigen and antibody levels that are below the limit ofdetection of this assay.The EasyLink HIV Ag/Ab Combo assay result andsupplemental assay results should be interpreted inconjunction with the patient's clinical presentation,history and other laboratory results. If the results areinconsistent with clinical evidence, additional testing issuggested to confirm the result. Blood Venous blood specimen / Unknown 06/07/2024 1:01 PM EST 06/07/2024 2:37 PM EST us Tiny Richter MD LAB BLOOD ORDERABLES Final Re sult [facility] [address] [place] [address] [phone] * THINPREP PAP (10/05/2020 11:02 AM EDT) Clinical Information: None given [facility] COMMENT SEE COMMENT [facility]OUNDAT[facility] ON [...] along with historic and current clinical information. Hot Box Spotter : SEE COMMENT [facility] Comment: NSS, CT(ASCP) CT screening location: [place] [address] Interpretation/R esult: Negative for intraepithelial lesion or malignancy. [facility] LMP: NONE GIVEN [facility] LAB [facility] Prev. BX: NONE GIVEN [facility] Prev. PAP: NONE GIVEN [facility]OUNDAT[facility] ON LAB SYSTEM SOURCE: None given [facility] Statement Of Adequacy: SEE COMMENT [facility] Comment: Satisfactory for evaluation. Endocervical/transformation zone component present. Age and/or menstrual status not provided 10/05/2020 11:0 2 AM EDT Tiny Richter MD LAB PATHOLOGY ORDERABLES Chiquita l Result Performing Organization Address [facility] Co de Phone Number [facility] [address] * HPV mRNA E6/E7 (10/05/2020 11:02 AM EDT) HPV nRNA E6/E7 Not Detected Not Detected [facility] Comment: Methodology: Records Management Engineer-Mediated Amplification This assay detects E6/E7 viral messenger RNA (mRNA) from 14 high-risk HPV types (16,18,31,33,35,39,45,51,52,56,58,59,66,68). The analytical performance characteristics of this assay have been determined by [facility]. The modifications have not been cleared or approved by the FDA. This assay has been validated pursuant to the CLIA regulations and is used for clinical purposes. For additional information, please refer to http://education.[employer]/faq/CHO242k6 (This link if provided for information/ educational purposes only.) NO COLLECTION DATE RECEIVED. WE HAVE USED THE DATE THE SPECIMEN WAS RECEIVED BY THIS LABORATORY THE COLLECTION DATE. IF THIS IS INCORRECT, PLEASE CONTACT CLIENT SERVICES. PHONE NUMBER: 10/05/2020 11:0 2 AM EDT Tiny Richter MD LAB BLOOD ORDERABLES Final Re sult Performing Organization Address [facility] Co de Phone Number [facility] [address] from Last 3 Months or Most Recently Relevant to Health Maintenance [facility] [place] [id number] [facility] Care Teams Radiology Asst Relationship Specialty Start Date End Date Tiny Richter MD [address] [place] [address] [place] Barone [phone] PCP - General Family Medicine 09/01/17
== END 2024-12-14 10:20 | disposition home or self-care (01) ==
LOC: HO.HGS 09:59
PROVIDERS: PCP Pediatrics; Referring Provider Pediatrics; Visit Provider Surgery
DX: K42.9 Umbilical hernia without obstruction or gangrene (principal)
CPT/HCPCS: 99203

== ENCOUNTER → 2024-12-14 09:58 | Outpatient (BNVA) | payer MEDICAID, SELFPAY | PROVIDERS: PCP Pediatrics; Referring Provider Pediatrics; Visit Provider Surgery | DX: K42.9 Umbilical hernia without obstruction or gangrene (principal) | CPT/HCPCS: 99202 ==

== ENCOUNTER 2025-01-16 05:41 | Day surgery (SDC) | payer MEDICAID, SELFPAY ==
[2025-01-12 14:10] VITALS: BMI 29.9
--- OUTSIDE RECORDS SUMMARY | 2025-01-15 16:32 | XMS_ITS | Encounter Summary ---
Author Organization [employer] Address [address] [place] [address] [address] [place] [address] Care Team Providers Care Head Rose Grower Name Role Phone Tiny Richter MD Primary Care Provider Encounter Details Date Type Department Care Team (Late st Contact Info) Description 11/23/2022 Orders Only [facility] [address] [place] [address] Lexii Suero LPN Social History Tobacco Use Types Packs/Day [...] Team (Late st Contact Info) Description 03/22/2025 11:30 AM EST Office Visit [facility] [address] [place], [place] [phone] Vaishnavi Ledezma OD [address] [place] [address] documented as of this encounter Visit Diagnoses Not on filedocumented in this encounter Care Teams Head Rose Grower Relationship Specialty Start Date End Date Tiny Richter MD [address] [place] [address] PCP - General Family Medicine 09/01/17 documented as of this encounter
--- OUTSIDE RECORDS SUMMARY | 2025-01-15 16:32 | XMS_ITS | Encounter Summary ---
Author Organization [employer] Address [address] [place] [address] Care Team Providers Care Microeconomics Professor Name Role Phone Tiny Richter MD Primary Care Provider [phone] Reason for Visit * Reason Onset Date Comments Med Refill 12/22/2024 Encounter Details Date Type Department Care Team ([facility] st Contact Info) Description 12/22/2024 Refill [facility] [address] [place] [address] Tiny Richter MD [address] [place] [address] Social History Tobacco Use Types Packs/Day Years [...] Q2 Not on file 05/24/2024 Comments No Sex and Gender Information Value Date Recorded Sex Assigned at Female 03/09/2022 10:29 AM EDT Legal Sex Female 10:29 AM EDT Gender Identity Female 03/09/2022 10:29 AM EDT Sexual Orientation Straight 03/09/2022 10 :29 AM EDT documented as of this encounter Plan of Treatment Upcoming Encounters Date Type Department Care Team (Late st Contact Info) Description 03/22/2025 11:30 AM EST Office Visit [facility] [address] [place] [address] Vaishnavi Ledezma, OD [address] [place] [address] documented as of this encounter Visit Diagnoses Not on filedocumented in this encounter Additional Health Concerns Assessment Noted Time PHQ-9 Depression Total Score: 15 025 10:56 AM EST documented as of this encounter Care Teams Microeconomics Professor Relationship Specialty Start Date End Date Tiny Richter MD [address] [place] [address] PCP - General Family Medicine 09/01/17 documented as of this encounter
--- OUTSIDE RECORDS SUMMARY | 2025-01-15 16:32 | XMS_ITS | Encounter Summary ---
Author Organization [employer] Address [address] [place] [address] [address] [place] [address] Care Team Providers Care Materials Management Clerk Name Role Phone Tiny Richter MD Primary Care Provider [phone] Encounter Details Date Type Department Care Team (Late Contact Info) Description 11/06/2022 Orders Only [facility] [address] [place] [address] Fay Clark LPN Social History Tobacco Use [...] Department Care Team (Late Contact Info) Description 03/22/2025 11:30 AM EST Office Visit [facility] [address] [place], [place] [phone] Vaishnavi Ledezma OD [address] [place] [address] documented as of this encounter Visit Diagnoses Not on filedocumented in this encounter Care Teams Materials Management Clerk Relationship Specialty Start Date End Date Tiny Richter MD [address] [place] [address] PCP - General Family Medicine 09/01/17 documented as of this encounter
--- OUTSIDE RECORDS SUMMARY | 2025-01-15 16:32 | XMS_ITS | Clinical Summary ---
Author Organization [employer] Address [facility] [address] [place] [address] Care Team Providers Care Radial Drill Press Operator Name Role Phone Tiny Richter MD Primary Care Provider [phone] Allergies Active Allergy Reactions Criticality Noted Date Comments Penicillins Hives High 10/28/2015 Medications diphenhydrAMINE (BENADryl) 25 MG tablet TAKE 1 TABLET BY MOUTH 1 TIME NEEDED FOR ALLERGIC REACTION 023 Active zolpidem (Ambien) 10 MG tablet Take 10 mg by mouth if needed at bedtime. 023 Active propranolol LA (Inderal LA) 80 MG 24 hr capsule Take 80 mg by mouth at bedtime. 023 Active omeprazole (PriLOSEC) [address] capsule TAKE 1 CAPSULE BY MOUTH BEFORE BREAKFAST AND 1 CAPSULE BEFORE DINNER 023 Active mupirocin (Bactroban) 2 % ointment APPLY SMALL AMOUNT TOPICALLY TO THE AFFECTED AREA TWICE DAILY 023 Active gabapentin (Neurontin) 300 MG capsule Take 300 mg by mouth at bedtime. 023 Active clonazePAM (KlonoPIN) 0.5 MG tablet Take 0.5 mg by mouth if needed in the morning and at bedtime. 023 Active Adderall XR 30 MG 24 hr capsule Take 30 mg by mouth in the morning. 023 Active ARIPiprazole (Abilify) 5 MG tablet Take 5 mg by mouth in the morning. 023 Active cetirizine (ZyrTEC) 10 MG tablet TAKE 1 TABLET BY MOUTH DAILY IN THE MORNING 90 tablet 1 024 Active levothyroxine (Synthroid, Levoxyl) 100 MCG tablet Take 1 tablet (100 mcg) by mouth Once per day. 90 tablet 024 Active Vraylar 3 MG capsule Take 1 capsule by mouth at bedtime. 024 Active zolpidem CR (Ambien CR) 12.5 MG ER tablet Take 12.5 mg by mouth at bedtime. 025 Active levothyroxine (Synthroid, Levoxyl) 100 MCG tablet Take 1 tablet (100 mcg) by mouth before breakfast. 90 tablet 3 025 Active cholecalciferol VITAMIN D (Vitamin D-3) 50 MCG (2000 UT) capsule TAKE 1 CAPSULE BY MOUTH IN THE MORNING 90 capsule 1 025 Active Ventolin HFA 108 (90 Base) MCG/ACT inhalerIndicati ons:Moderate persistent asthma without complication INHALE 2 PUFFS BY MOUTH EVERY 4 HOURS IF NEEDED FOR WHEEZING OR SHORTNESS OF BREATH 18 g 2 025 Active Drospirenone (Slynd) 4 MG tablet Take 1 tablet by mouth Once per day. 28 tablet 11 025 Active omeprazole OTC (PriLOSEC OTC) 20 MG EC tablet Take 1 tablet (20 mg) by mouth before breakfast and before evening meal. 180 tablet 2 025 Active diphenhydrAMINE (Banophen) 25 MG tablet Take 1 tablet (25 mg) by mouth every 6 (six) hours if needed for itching. TAKE 1 TABLET BY MOUTH 1 TIME NEEDED FOR ALLERGIC REACTIONTAKE 30 tablet 5 025 Active EPINEPHrine (Epipen) 0.3 MG/0.3ML injection syringe Inject 0.3 mL (0.3 mg) as directed 1 (one) time for 1 dose. 1 each 1 025 Active meloxicam (Mobic) 7.5 MG tablet TAKE 1 TABLET BY MOUTH TWICE DAILY WITH FOOD NEEDED FOR PAIN 60 tablet 025 Active fluticasone (Flonase) 50 MCG/ACT nasal spray SHAKE LIQUID AND USE 1 SPRAY IN EACH NOSTRIL IN THE MORNING 48 g 1 025 Active omeprazole OTC (PriLOSEC OTC) 20 MG EC tablet Take 1 tablet (20 mg) by mouth before breakfast and before evening meal. 180 tablet 2 023 2024 Discontinued(R eorder (will not trigger notification to Pharmacy)) fluticasone (Flonase) 50 MCG/ACT nasal spray SHAKE LIQUID AND USE 1 SPRAY IN EACH NOSTRIL IN THE MORNING 48 g 1 024 2024 Discontinued(R eorder (will not trigger notification to Pharmacy)) meloxicam (Mobic) 7.5 MG tablet TAKE 1 TABLET BY MOUTH TWICE DAILY WITH FOOD NEEDED FOR PAIN 60 tablet 024 2024 Discontinued(R eorder (will not trigger notification to Pharmacy)) diphenhydrAMINE (Banophen) 25 MG tablet Take 1 tablet (25 mg) by mouth every 6 (six) hours if needed for itching. TAKE 1 TABLET BY MOUTH 1 TIME NEEDED FOR ALLERGIC REACTIONTAKE 30 tablet 5 024 2024 Discontinued(R eorder (will not trigger notification to Pharmacy)) EPINEPHrine (Epipen) 0.3 MG/0.3ML injection syringe Inject 0.3 mL (0.3 mg) as directed 1 (one) time for 1 dose. 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 Encounters Date Type Department Care Team Description 12/28/2024 Refill [facility] [address] [place] [address] Tiny Richter MD 12/28/2024 Refill C [facility] [address] [place] [address] Tiny Richter MD 12/22/2024 Refill C [facility] [address] [place] [address] Tiny Richter MD 12/22/2024 Refill [facility] P[facility] [address] [place] [address] Love Morrison MD 12/22/2024 Refill [facility] PED[facility] [address] [place] [address] Tiny Richter MD 11/17/2024 Telephone [facility] MEDIC[facility] [address] [place] [phone] Juliet Freeman CNM Chart Prep 11/14/2024 11:30 AM EDT Office Visit [facility] MED & PEDS [address] [place] [address] Tiny Richter MD Autoimmune hypothyroidism (Primary Dx); Umbilical hernia without obstruction and without gangrene 11/14/2024 Results Follow-Up [facility] MED & PEDS [address] [place] [address] Tiny Richter MD TSH W/Reflex to FT4 11/14/2024 Orders Only [facility] MED & PEDS [address] [place] [address] Tiny Richter MD 11/14/2024 Travel 11/13/2024 Telephone [facility] MED & PEDS [address] [place] [address] Tiny Richter MD chart Prep 11/02/2024 10:45 AM EDT Office Visit [facility] OPTOMETRY [address] [place] [address] Joseph, Vaishnavi, OD Hypermetropia, bilateral (Primary Dx) 11/01/2024 11:30 AM EDT Office Visit [facility] MEDICINE [address] [place] [address] Juliet Freeman CNM Family planning counseling (Primary Dx); Pelvic pain; Encntr screen for infections w sexl mode of transmiss 11/01/2024 Orders Only [facility] MED & PEDS [address] [place] [address] Tiny Richter MD Ventral hernia without obstruction or gangrene (Primary Dx) 11/01/2024 Travel 11/01/2024 Results Follow-Up [facility] MED & PEDS [address] [place] [address] Abdomen Pelvis w/ Contrast 10/31/2024 Telephone [facility] [address] [place] [address] Tiny Richter MD chartprep 10/24/2024 Refill [facility] MED & PEDS [address] [place], [place] [phone] Love Morrison MD Moderate persistent asthma without complication 10/19/2024 Telephone [facility] [address] [place], [place] [phone] Mike Mauricio MD 10/19/2024 Telephone [facility] [address] [place], [place] [phone] Tiny Richter MD CT ABDOMEN ORDER from Last 3 Months Immunizations Immunization Administration Dates Next Due HPV, Quadrivalent 03/08/2009,11/27/2008,07/10/19 09 Hep B, adult 08/02/2024 Influenza injectable quadriv alent preservative free 03/21/2021,02/21/2018 Influenza, IIV3, injectable 01/30/2011, 0 Meningococcal ACWY, unspecified 04/26/2009 Novel [id number], all formulations 2008 Tdap 03/16/2018,11/27/2008 Social History [...] Description 03/22/2025 11:30 AM EST Office Visit [facility] OPTOMETRY [address] [place] [address] Vaishnavi Ledezma, OD [address] [place] [address] Health Maintenance Due Date Last Done Comments Disability Screening 1991 Alcohol/Substance Use Screening 2003 Pneumococcal Vaccine: Pediatrics (0 to 5 Years) and At-Risk Patients (6 to 49) Years (1 of 2 - PCV) 2010 Hepatitis B Vaccines (2 of 3 - 19+ 3-dose series) 08/30/2024 08/02/2024 Depression Monitoring 11/30/2024 06/02/2024, 025 COVID-19 Vaccine ( season) 2025 03/21/2021, 08/14/2020, 07/17/2020 Influenza Vaccine (#1) 2025 , 02/21/2018, 01/30/2011, [...] for infections w sexl mode of transmiss HEPATITIS C AB W/REFL TO HCV RNA, [...] Free T4 5.10(H) 0.32 - 4.0 uIU/mL [facility] Blood Venous blood specimen / Unknown 11/14/2024 1:49 PM EDT 11/14/2024 3:03 PM EDT us Tiny Richter MD LAB BLOOD ORDERABLES Final Re sult Performing Organization Address [facility] Co de Phone Number [facility] [address] [place] [phone] * T4, Free (11/14/2024 1:49 PM EDT) Pathologist [facility] Free T4 (Free Thyroxine) 0.97 0.71 - 1.85 ng/dL [facility] 11/14/2024 1:49 PM EDT 11/14/2024 3:03 PM EDT Tiny Richter MD LAB BLOOD ORDERABLES Final Re sult Performing Organization Address [facility] Co de Phone Number [facility] [address] [place] [phone] * Trichomonas RNA (Urine/Vaginal) (11/01/2024 11:38 AM EDT) Pathologist [facility] Trichomas vaginalis RNA, QL, TMA NOT DETECTED NOT DETECTED [facility] Comment:For additional infor mation, please refer tohttp://education.[employer] - is now [employer]/faq/Trichomonastma(This link is being provided for informational/educational purposes only.)THIS TEST WAS PERFORMED AT:[email or web address] [place] [phone] LOWERY MD Swab Vaginal structure / Unknown 11/01/2024 11:38 AM EDT 11/01/2024 4:36 PM EDT Juliet Freeman CNM LAB BODY FLUIDS AND STOOL S ORDERABLES Final Result Performing Organization Address [facility] Co de Phone Number [facility] [address] [place] [address] [phone] * Chlamydia/N. Gonorrhoeae RNA, TMA, Vagina (11/01/2024 11:38 AM EDT) Pathologist [facility] CT PCR NOT DETECTED Not Detect. [facility] Comment:A not detected test result [...] psychologicalconsequences. NG PCR NOT DETECTED Not Detect. [facility] Comment:A not detected test result [...] 11:38 AM EDT 11/01/2024 4:36 PM EDT us Juliet Freeman CNM LAB MICROBIOLOGY - GENERA L ORDERABLES Final Result [facility] [address] [place] [phone] * Hepatitis C Antibody with Reflex to HCV, RNA, Quantitative, Real-Time PCR (06/07/2024 1:01 PM EST) Hepatitis C Antibody Nonreactive Nonreactive [facility] Comment:Antibodies to HCV no t detected; does not exclude early acuteHCV infection. Blood Venous blood specimen / Unknown 06/07/2024 1:01 PM EST 06/07/2024 2:37 PM EST Tiny Richter MD LAB BLOOD ORDERABLES Final Re sult Performing Organization Address [facility]/ZIP Co de Phone Number [facility] [address] [place] [phone] * HIV-1/2 Antigen and Antibodies, Fourth Generation, with Reflexes (06/07/2024 1:01 PM EST) HIV AB/AG Nonreactive Nonreactive [facility] Comment:HIV-1 p24 Ag and/or HIV-1/HIV-2 Ab not detected.A test result that is nonreactive does not exclude thepossibility of exposure to or infection with HIV-1 and/orHIV-2. Nonreactive results in this assay for individualswith prior exposure to HIV-1 and/or HIV-2 may be due toantigen and antibody levels that are below the limit ofdetection of this assay.The [employer] HIV Ag/Ab Combo assay result andsupplemental assay results should be interpreted inconjunction with the patient's clinical presentation,history and other laboratory results. If the results areinconsistent with clinical evidence, additional testing issuggested to confirm the result. Blood Venous blood specimen / Unknown 06/07/2024 1:01 PM EST 06/07/2024 2:37 PM EST Tiny Richter MD LAB BLOOD ORDERABLES Final Re sult Performing Organization Address [facility]/ZIP Co de Phone Number [facility] [address] [place] [address] [phone] * THINPREP PAP (10/05/2020 11:02 AM [...] along with historic and current clinical information. Single Needle Tufting Machine Operator : SEE COMMENT [facility] Comment: NSS, CT(ASCP) CT screening location: [place] [address] Interpretation/R esult: Negative for intraepithelial lesion or malignancy. [facility] LMP: NONE GIVEN [facility] Prev. BX: NONE GIVEN [facility] Prev. PAP: NONE GIVEN [facility] SOURCE: None given [facility] Statement Of Adequacy: SEE COMMENT [facility] Comment: Satisfactory for evaluation. Endocervical/transformation zone component present. Age and/or menstrual status not provided 10/05/2020 11:0 2 AM EDT us Tiny Richter MD LAB PATHOLOGY ORDERABLES Chiquita moore Result [facility] [address] * HPV mRNA E6/E7 (10/05/2020 11:02 AM EDT) HPV nRNA E6/E7 Not Detected Not Detected [facility] Comment: Methodology: Cooker Cleaner-Mediated Amplification This assay detects E6/E7 viral messenger RNA (mRNA) from 14 high-risk HPV types (16,18,31,33,35,39,45,51,52,56,58,59,66,68). The analytical performance characteristics of this assay have been determined by [employer] The modifications have not been cleared or approved by the FDA. This assay has been validated pursuant to the CLIA regulations and is used for clinical purposes. For additional information, please refer to http://education.[employer]aging[employer]/faq/MAA832r4 (This link if provided for information/ educational purposes only.) NO COLLECTION DATE RECEIVED. WE HAVE USED THE DATE THE SPECIMEN WAS RECEIVED BY THIS LABORATORY THE COLLECTION DATE. IF THIS IS INCORRECT, PLEASE CONTACT CLIENT SERVICES. PHONE NUMBER: 10/05/2020 11:0 2 AM EDT Tiny Richter MD LAB BLOOD ORDERABLES Final Re sult [facility] [address] [place] [address], from Last 3 Months or Most Recently Relevant to Health Maintenance Insurance [employer]3 Care Teams Radial Drill Press Operator Relationship Specialty Start Date End Date Tiny Richter MD [address] [place] [address] PCP - General Family Medicine 09/01/17
--- OUTSIDE RECORDS SUMMARY | 2025-01-15 16:32 | XMS_ITS | Encounter Summary ---
Author Organization [email or web address] Address [address] [place] [address] Care Team Providers Care Mechanical Engineering Professor Name Role Phone Tiny Richter MD Primary Care Provider [phone] Encounter Details Date Type Department Care Team ([facility] st Contact Info) Description 11/14/2024 Results Follow-Up [facility] MED & PEDS [address] [place], [place] [phone] Tiny Richter MD [address] [place] [address] TSH W/Reflex to FT4 Social History Tobacco Use Types Packs/Day Years [...] AM EST Office Visit [facility] [address] [place] [address] Vaishnavi Ledezma, OD [address] [place] [address] documented as of this encounter Visit Diagnoses Not on filedocumented in this encounter Additional Health Concerns Assessment Noted Time PHQ-9 Depression Total Score: 15 025 10:56 AM EST documented as of this encounter Care Teams Mechanical Engineering Professor Relationship Specialty Start Date End Date Tiny Richter MD [address] [place] [address] PCP - General Family Medicine 09/01/17 documented as of this encounter
--- OUTSIDE RECORDS SUMMARY | 2025-01-15 16:32 | XMS_ITS | Encounter Summary ---
Author Organization [employer] Address [address] [place] [address] [address] [place] [address] Care Team Providers Care Market Superintendent Name Role Phone Tiny Richter MD Primary Care Provider Reason for Visit * Reason Comments Med Refill Encounter Details Date Type Department Care Team (Late Contact Info) Description 04/09/2023 Refill [facility] MED & PEDS [address] [place] [address] Tiny Richter MD [address] [place] [address] Social History Tobacco Use Types Packs/Day Years [...] Description 03/22/2025 11:30 AM EST Office Visit [facility] OPT[facility] [address] [place] [address] TarVaishnavi josé, OD [address] [place] [address] documented as of this encounter Visit Diagnoses Not on filedocumented in this encounter Care Teams Market Superintendent Relationship Specialty Start Date End Date Tiny Richter MD [address] [place] [phone] PCP - General Family Medicine 09/01/17 documented as of this encounter
--- OUTSIDE RECORDS SUMMARY | 2025-01-15 16:32 | XMS_ITS | Encounter Summary ---
Author Organization [employer] Address [address] [place] [address] Care Team Providers Care Clay Digger Name Role Phone Tiny Richter MD Primary Care Provider [phone] Reason for Visit * Reason Onset Date Comments Med Refill 12/22/2024 Encounter Details Date Type Department Care Team ([facility] st Contact Info) Description 12/22/2024 Refill [facility] CH[facility] MED & PEDS [address] [place] [address] Love Morrison MD [address] [place] [address] Social History Tobacco Use Types Packs/Day Years [...] AM EST Office Visit [facility] [address] [place] [address] Vaishnavi Ledezma, OD [address] [place] [address] documented as of this encounter Visit Diagnoses Not on filedocumented in this encounter Additional Health Concerns Assessment Noted Time PHQ-9 Depression Total Score: 15 025 10:56 AM EST documented as of this encounter Care Teams Clay Digger Relationship Specialty Start Date End Date Tiny Richter MD [address] [place] [address] PCP - General Family Medicine 09/01/17 documented as of this encounter
--- OUTSIDE RECORDS SUMMARY | 2025-01-15 16:32 | XMS_ITS | Clinical Summary ---
Author Organization [facility] Address [address] [place] [address] Phone Care Team Providers Care House Admin Name Role Phone Kofi Burks MD Primary Care Provider [phone] Allergies Active Allergy Reactions Criticality Noted Date Comments Penicillins 03/31/2024 Encounters Date Type Department Care Team Description 10/27/2024 1:07 PM EDT - 10/27/2024 11:59 PM EDT Hospital Encounter [facility] CT Scan [address] [place] [phone] Ventral hernia without obstruction or gangrene Discharge Disposition: Home or Self Care from Last 3 Months Surgical History Surgery Date Site/Laterality Comments TONSILLECTOMY ADENOIDECTOMY, BILATERAL MYRINGOTOMY AND TUBES PROCEDURE: DC TONSILLECTOMY & ADENOIDECTOMY <AGE 13 OTHER SURGICAL [...] 01/05/2012 Social Influencers of Health Screening 04/12/2022 Depression Screening 05/10/2024 Hepatitis B Vaccines (2 of 3 - 19+ 3-dose series) 08/30/2024 08/02/2024 COVID-19 Vaccine ( - 2024- season) 2025 03/21/2021, 08/14/2020, 07/17/2020 Influenza Vaccine [...] Signed Date: 10/30/2024 11:34 ET Workstation ID: [id number] Transcribed By: Self Edit Transcribed Date: 10/30/2024 [...] Signed Date: 10/30/2024 11:34 ET Workstation ID: [id number] Transcribed By: Self Edit Transcribed Date: 10/30/2024 11:28 ET us Tiny Richter MD IMG CT PROCEDURES Final Resul t from Last 3 Months Insurance MEDICAID - [place] Care Teams House Admin Relationship Specialty Start Date End Date Kofi Burks MD [address] [place] [address] PCP - General 09/20/14
[2025-01-16] VITALS (37 sets, daily range): BP systolic 109–137; BP diastolic 55–93; PULSE 67–107; RESP 16–32; TEMP 36.1–37; O2SAT 87–98; BMI 30.1
--- NOTE | ~2025-01-16 | XR_ITS ---
EXAMINATION: XR CHEST CLINICAL INFORMATION: Post-operative wheezing and hypoxia COMPARISON: CT 01/31/2020 TECHNIQUE: Frontal view of the chest was obtained. FINDINGS: Lung volumes are low. There is minimal left basilar density partially obscuring the hemidiaphragm. There is trace fluid tracking along the minor fissure in the right lung. Heart size is within normal limits. XR/XR chest 1V IMPRESSION: Low lung volumes, probable left basilar atelectasis, and trace fluid in the minor fissure. Left basilar pneumonia is not ruled out. Electronically signed by: Franklin Telles MD 01/16/2025 01:05 PM EDT
[2025-01-16 06:17] LABS: UPreg QC Valid YES
[2025-01-16] MEDS: Lactated Ringers 1,000 ML 50 ML IVCONT (06:18)
--- NOTE | 2025-01-16 07:02 | HO.ANESPROP2 ---
[facility] Active Problems Active Problems: All Active Problems (Updated 12/14/24 @ 10:24 by Karan Cobos MD) Reducible umbilical hernia (Acute) Abdominal pain (Acute) Weight loss (Acute) Dysphagia (Acute) PTSD (post-traumatic stress disorder) (Acute) Acid reflux (Acute) Past Medical History Medical History (Updated 12/14/24 @ 10:24 by Karan Cobos MD) Reducible umbilical hernia Dilation of esophagus Abdominal pain Weight loss Dysphagia PTSD (post-traumatic stress disorder) Brain benign neoplasm (~12/2009) Esophagus disorder Feeding by G-tube Acid reflux Family History Family History Father Stomach cancer Mother HTN (hypertension) Diabetes Stroke Family history of problems with anesthesia: No Surgical History Surgical History Hx laparoscopic cholecystectomy History of tonsillectomy History of Problems with Anesthesia: No Social History Social History Household Members Other:: she lives alone Alcohol intake: current Alcohol intake frequency: a few times a week Patient Tobacco Use Status: Never used Tobacco Substance Use Type: Marijuana Have you been hit, kicked, punched, or otherwise hurt by someone within the past year? 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 Meds Allergies Allergy/AdvReac Type Severity Reaction Status Date / Time Penicillins Allergy Intermediate Hives Verified 12/14/24 10:06 Active Medications: Current Medications Lactated Ringer's (Lr) 1,000 mls @ 50 mls/hr IVCONT .Q20H IVY Last Admin: 01/16/25 06:18 Dose: 50 mls/hr Home Medications ?Medication ?Instructions ?Recorded ?Confirmed ?Last Taken ?Type albuterol sulfate 90 mcg/actuation 2 puff inhalation Q6H PRN sob 03/13/20 01/16/25 01/15/25 History aerosol inhaler (ProAir HFA) clonazepam 0.5 mg tablet 0.25 mg PO BEDTIME 03/13/20 01/16/25 01/15/25 History dextroamphetamine-amphetamine 30 30 mg PO DAILY 03/13/20 01/16/25 01/15/25 History mg tablet (Adderall) gabapentin 300 mg capsule 300 mg PO DAILY 03/13/20 01/16/25 01/15/25 History levothyroxine 100 mcg tablet 100 mcg PO DAILY 03/13/20 01/16/25 01/15/25 History omeprazole 20 mg capsule,delayed 20 mg PO DAILY 03/13/20 01/16/25 01/15/25 History release zolpidem 10 mg tablet (Ambien) 10 mg PO BEDTIME PRN Sleep 03/13/20 01/16/25 01/15/25 History Exam Height,Weight and Vital Signs: Height 4 ft 10 in Weight 65.3 kg Last Vital Signs Temp 98.6 F 01/16/25 05:58 Pulse 91 01/16/25 05:58 Resp 20 01/16/25 05:58 BP 111/67 01/16/25 05:58 Pulse Ox 98 01/16/25 05:58 O2 Del Method Room Air 01/16/25 05:58 Pertinent Lab Results Pertinent Lab Results: Laboratory Tests 01/16/25 05:55 Urine Test NEGATIVE Airway Mallampati Class: III TM Dist: >3cm Neck ROM: Full Heart: rrr Lungs: cta Assessment and Plan Assessment Anesthesia Assessment: Anesthesia Plan Discussed and Chart Reviewed Final Anesthetic Review Family History of Problems with Anesthesia: No History of Problems with Anesthesia: No NPO: Yes ASA Class: II Final Preanesthetic Review: No Changes in Pt Med Stat, Meds/Allgs Chart Reviewed and Consent Obtained/Reviewed Patient Risk: Low Procedure Risk: Low Anesthetic Plan Anesthetic Plan: GA Disposition: Standard PACU
--- NOTE | 2025-01-16 07:20 | MHC.SHP ---
Pre-Procedural Eval Section A - 24 Hr Update-Section A only Date of Service: 01/16/25 The patient is an INPATIENT: No The patient has been examined within 24 hours of the surgical procedure. The History & Physical has been completed within 30 days and I have reviewed it.: Yes Section B - Complete if H&P > 30 days Chief Complaint: Umbilical hernia without obstruction or gangrene Allergies: Allergies Allergy/AdvReac Type Severity Reaction Status Date / Time Penicillins Allergy Intermediate Hives Verified 12/14/24 10:06 Plan I have reviewed the history and physical and performed a pertinent physical examination on my patient. No changes have occurred unless specified. Time Spent With Patient Time: Total time managing care of this patient today ____ minutes.
--- NOTE | 2025-01-16 08:21 | W.PM.OPN ---
Operative Note Operative Note Date of Service: 01/16/25 Narrative: Preop diagnosis: Umbilical hernia, reducible Postop diagnosis: The same Procedure: Repair of umbilical hernia with Phasix mesh Surgeon: Karan Cobos MD production administrative assistant: BETSY Nye The patient is a 35 year old female with a reducible umbilical hernia, here for repair. She understood the technique of the planned procedure as well as the risks, benefits, and alternatives. She was brought to the operating room. She was placed supine under general anesthesia initially via laryngeal mask airway which was converted to an endotracheal tube in view of low O2 sats The abdomen was prepped and draped in the usual sterile fashion. A surgical time-out was done. The patient received cefazolin 2 g IV preoperatively I infiltrated the planned line of incision with lidocaine 1%. I made a supraumbilical curvilinear transverse incision with a blade 15. This was carried down through the full-thickness of the skin and subcutaneous fat with electrocautery until the hernia was visualized. I sharply dissected the hernia contents off of the rest of the thick subcutaneous layer and the umbilicus. The umbilicus was lifted as a flap I dissected down to the fascial edges and divided some adhesions from the fascial edge to the hernia contents. I was then able to completely reduce the hernia through the fascial defect the fascial edges were clear of adhesions. The fascial defect was about 1.2 cm. I positioned a small-sized Phasix umbilical mesh underneath the fascial defect and flattened this. I secured the Prolene straps of the mesh to each side of the fascia with Prolene 2 sutures. I trimmed the Prolene straps. I then closed the fascial defect with a [id number] Maxon 1 stitch I irrigated. I closed the deep layers with Polysorb 3-0 simple interrupted sutures. Skin closure was achieved with Polysorb 4-0 subcuticular running stitch The area was infiltrated with Marcaine 0.5% for postop analgesia. Dressings were applied and the procedure was completed The patient tolerated procedure well. There were no immediate complications Initial and final counts of sponges and instruments were correct. Estimated blood loss less than 20 cc The patient was extubated without difficulty and transferred to the recovery room with stable vital signs.
[2025-01-16] MEDS: Albuterol/Iprat 2.5/0.5MG 3 ML AMPUL.NEB INHALE ×2 (09:00→14:01)
[2025-01-16] MEDS: oxyCODONE HCl Immed Release 5 MG TABLET PO ×2 (10:44→21:18)
--- NOTE | 2025-01-16 16:21 | PM.EVENT ---
Event Note Date of Service: 01/16/25 Event Note: She had undergone umbilical hernia repair, uneventful, early this morning However, she has remained short of breath with borderline O2 sats in PACU The anesthesiologist has recommended keeping her overnight O2 sats in the low 90s with oxygen supplement She does have a history of asthma Stable vital signs otherwise We will consult the hospitalist I explained to her the plan above Pain meds Time Spent With Patient Time: Total time managing care of this patient today ____ minutes.
[2025-01-16] MEDS: Lactated Ringers 1,000 ML 60 ML IVCONT (18:12)
--- NOTE | 2025-01-16 19:25 | PHA.MEDREC ---
Pharmacy Consult ? Medication Reconciliation Pharmacy has reviewed the medication reconciliation done by nursing. patient confirmed she is taking Vraylar 3 mg, Flonase nasal spray, Meloxicam 7.5 mg, and Prazosin 2 mg add to med rec. Patient confirmed Clonazepam 1 mg (2x 0.5 mg) at [facility] last had her medications yesterday. edtime.P
--- NOTE | 2025-01-16 19:30 | PHA.MEDREC ---
Addendum entered by Shawnee Kwon RPh 01/16/25 21:21: REVIEWED BY PHARMACIST Addendum entered by Roxann Tompkins 01/16/25 21:04: Patient confirmed she is still taking Slynd 4 mg, Cetirazine 10 mg, Propranolol ER 80 mg Original Note: Pharmacy Consult ? Medication Reconciliation Pharmacy has reviewed the medication reconciliation done by nursing. patient confirmed she is taking Vraylar 3 mg, Flonase nasal spray, Meloxicam 7.5 mg, and Prazosin 2 mg add to med rec. Patient confirmed Clonazepam 1 mg (2x 0.5 mg) at bedtime. Patient last had her medications yesterday.
[2025-01-17 03:56] VITALS: BP 127/72; PULSE 94; RESP 18; TEMP 36.2; O2SAT 91
--- NOTE | 2025-01-17 04:02 | PC.NURSE ---
pt nighttime medications were not ordered until 032 on 01/17/2025. clonazepam and prazosin were given unscheduled - Dr. Salome galindo.
[2025-01-17] MEDS: oxyCODONE HCl Immed Release 5 MG TABLET PO (05:41)
[2025-01-17 07:47] VITALS: BP 121/56; PULSE 85; RESP 16; TEMP 36.1; O2SAT 97
--- NOTE | 2025-01-17 08:14 | PM.PNGS ---
Subjective Subjective Date of Service: 01/17/25 Interval history: Underwent repair of umbilical hernia yesterday morning Kept postop because of borderline O2 sats She says she feels well Was on O2 supplement overnight No events reported Physical Exam Vital Signs: Vital Signs: Last Vital Signs Temp 96.9 F 01/17/25 07:47 Pulse 85 01/17/25 07:47 Resp 16 01/17/25 07:47 BP 121/56 L 01/17/25 07:47 Pulse Ox 97 01/17/25 07:47 O2 Del Method Shovel Mask 01/17/25 07:47 O2 Flow Rate 9.0 01/17/25 07:47 FiO2 40 01/17/25 03:56 BMI result Body Mass Index 30.1 Const: Other: On O2 supplement General: comfortable and no acute distress Resp: Other: On O2 supplement, does not appear to be short of breath Cardio: Rate: regular rate GI: Other: Dressings dry Palpation (GI): Soft to palpation, not firm and nontender Objective Data Active Medications Acetaminophen (Acetaminophen 325 Mg Tablet) 650 mg PO Q6H PRN PRN Reason: Pain, Mild 1-3,fever,headache Albuterol Sulfate (Albuterol Sulfate 90 Mcg 8 Gm Inhaler) 2 puff INHALE RQ4H PRN PRN Reason: Wheezing Amphetamine/Dextroamphetamine (Dextroamphetamine/Amphetamine Xr 10 Mg Cap.Er.24h) 30 mg PO DAILY [facility] Calcium Carbonate (Calcium Carbonate 750 Mg Tab.Chew) 750 mg PO Q4H PRN PRN Reason: Heartburn Clonazepam (Clonazepam 1 Mg Tablet) 1 mg PO BEDTIME [facility] Last Admin: 01/17/25 03:51 Dose: 1 mg Documented By: SVETLANA Lactated Ringer's (Lr) 1,000 mls @ 50 mls/hr IVCONT .Q20H [facility] Last Admin: 01/17/25 01:57 Dose: Not Given Documented By: SVETLANA Non-Admin Reason: Duplicate Order Lactated Ringer's (Lr) 1,000 mls @ 60 mls/hr IVCONT .[id number] [facility] Last Admin: 01/16/25 18:12 Dose: 60 mls/hr Documented By: FEDERICO Ibuprofen (Ibuprofen 600 Mg Tablet) 600 mg PO Q6H PRN PRN Reason: Pain, Moderate(Pain Scale 4-6) Levothyroxine Sodium (Levothyroxine Sodium 100 Mcg Tablet) 100 mcg PO DAILY@0600 [facility] Last Admin: 01/17/25 05:37 Dose: 100 mcg Documented By: SVETLANA Melatonin (Melatonin 3 Mg Tablet) 6 mg PO BEDTIME PRN PRN Reason: Insomnia Morphine Sulfate (Morphine Sulfate 2 Mg/Ml Cartridge) 2 mg IVPUSH Q4H PRN; Protocol PRN Reason: Pain, Severe (Pain Scale 7-10) Naloxone HCl (Naloxone Hcl 0.4 Mg/Ml Vial) 0.04 mg IVPUSH Q5M PRN PRN Reason: Excessive sedation or RR < 8 Naloxone HCl (Naloxone Hcl 0.4 Mg/Ml Vial) 0.04 mg IVPUSH Q5M PRN PRN Reason: Excessive sedation or RR < 8 Omeprazole (Omeprazole 20 Mg Capsule.Dr) 20 mg PO DAILY@0630 [facility] Last Admin: 01/17/25 06:28 Dose: 20 mg Documented By: SVETLANA Ondansetron HCl (Ondansetron Hcl 4 Mg/2 Ml Vial) 4 mg IVPUSH Q8H PRN PRN Reason: Nausea and Vomiting Oxycodone HCl (Oxycodone Hcl Immed Release 5 Mg Tablet) 5 mg PO Q6H PRN PRN Reason: Pain, Severe (Pain Scale 7-10) Last Admin: 01/17/25 05:41 Dose: 5 mg Documented By: SVETLANA Prazosin HCl (Prazosin Hcl 1 Mg Capsule) 2 mg PO BEDTIME [facility]; Protocol Last Admin: 01/17/25 03:50 Dose: 2 mg Documented By: SVETLANA Comments: okay per Dr. Mcmahon Propranolol HCl (Propranolol Hcl La 80 Mg Cap.Sa.24h) 80 mg PO BEDTIME [facility]; Protocol Sodium Chloride (0.9 % Sodium Chloride Flush 3 Ml Syringe) [facility] Last Admin: 01/16/25 23:25 Dose: Not Given Documented By: SVETLANA Non-Admin Reason: IV Running Procedures Date of Service Date of Service: 01/17/25 Progress Note: A&P Assessment and plan (1) Reducible umbilical hernia: Status: Acute Assessment and Plan: Status post repair with mesh yesterday Was kept postop because of borderline O2 sats She looks well this morning Abdomen is soft and benign Dressings dry Awaiting evaluation by hospitalist service Possible discharge today Time Spent With Patient Time: Total time managing care of this patient today ____ minutes. Quality Stroke Does the patient have a stroke diagnosis?: No VTE Prior VTE?: No VTE Risk Level:: Medical - low VTE Device Contraindication: N/A - Device Ordered VTE Drug Contraindication: Treatment Not Indicated
--- NOTE | 2025-01-17 09:15 | HO.POSTANES ---
Post Anesthesia Evaluation Post Anesthesia Evaluation Date of Service: 01/17/25 Vital Signs: Vital Signs Temp Pulse Resp BP Pulse Ox O2 Del Method O2 Flow Rate 01/17/25 07:47 96.9 F 85 16 121/56 L 97 Shovel Mask 9.0 01/17/25 03:56 97.1 F 94 18 127/72 91 L Shovel Mask 01/16/25 23:56 97.8 F 105 H 18 133/81 97 Room Air, Shovel Mask FiO2 01/17/25 07:47 01/17/25 03:56 40 01/16/25 23:56 40 Anesthesia: General Mental Status: Awake Pain Control: Satisfactory Nausea/Vomiting: None Hydration: Adequate Anesthesia-Related Issues: No Anes. Related Issues
[2025-01-17] MEDS: Dextroamphetamine/Amphetamine XR 10 MG CAP.ER.24H 30 MG PO (10:15)
--- NOTE | 2025-01-17 10:54 | MHC.CM.PN ---
SDC s/p Umbilical Hernia repair. Lives alone Independent with all functional mobility. PCP Tiny Perry A new HCP has been documented Patient reports that she will stay with her family for a few days at discharge. She will return home self care when she is ready. DP Home with family support. She has arranged for a family member to provide transportation home. A dicharge order has been received for today.
[2025-01-17] MEDS: Lactated Ringers 1,000 ML 50 ML IVCONT (10:55)
--- NOTE | 2025-01-17 11:21 | P.CONIM_ITS ---
History of Present Illness Data of Consult Service Date: 01/17/25 Primary Care Provider: Tiny Richter MD HPI Reason for consult: hypoxia 35F PMH hypothryoid, mood disorder, mild intermittent asthma, obesity, admitted to [facility] surgery for elective ventral hernia repair, course copmlicated by acute hypoxia. Patient reports mild shortness breath and pain with inspiration. Chest x-ray with atelectasis. [place] better with DuoNebs and incentive spirometry. At this time patient is 96% on room air. Review of Systems Review of Systems: Yes all other systems are reviewed and are negative [facility] Medical History Reducible umbilical hernia Dilation of esophagus Abdominal pain Weight loss Dysphagia PTSD (post-traumatic stress disorder) Brain benign neoplasm (~12/2009) Esophagus disorder Feeding by G-tube Acid reflux Family History Father Stomach cancer Mother HTN (hypertension) Diabetes Stroke Surgical History Hx laparoscopic cholecystectomy History of tonsillectomy Social History Household Members Other:: she lives alone Alcohol intake: current Alcohol intake frequency: a few times a week Patient Tobacco Use Status: Never used Tobacco Substance Use Type: Marijuana Currently Displaying Signs/Symptoms of Drug Intoxication Withdrawal: No Have you been hit, kicked, punched, or otherwise hurt by someone within the past year? 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24h) 30 mg PO DAILY [facility] Last Admin: 01/17/25 10:15 Dose: 30 mg Calcium Carbonate (Calcium Carbonate 750 Mg Tab.Chew) 750 mg PO Q4H PRN PRN Reason: Heartburn Clonazepam (Clonazepam 1 Mg Tablet) 1 mg PO BEDTIME [facility] Last Admin: 01/17/25 03:51 Dose: 1 mg Lactated Ringer's (Lr) 1,000 mls @ 50 mls/hr IVCONT .Q20H [facility] Last Admin: 01/17/25 10:55 Dose: 50 mls/hr Lactated Ringer's (Lr) 1,000 mls @ 60 mls/hr IVCONT .[id number] [facility] Last Infusion: 01/17/25 11:07 Dose: Infused Ibuprofen (Ibuprofen 600 Mg Tablet) 600 mg PO Q6H PRN PRN Reason: Pain, Moderate(Pain Scale 4-6) Levothyroxine Sodium (Levothyroxine Sodium 100 Mcg Tablet) 100 mcg PO DAILY@0600 [facility] Last Admin: 01/17/25 05:37 Dose: 100 mcg Melatonin (Melatonin 3 Mg Tablet) 6 mg PO BEDTIME PRN PRN Reason: Insomnia Morphine Sulfate (Morphine Sulfate 2 Mg/Ml Cartridge) 2 mg IVPUSH Q4H PRN; Protocol PRN Reason: Pain, Severe (Pain Scale 7-10) Naloxone HCl (Naloxone Hcl 0.4 Mg/Ml Vial) 0.04 mg IVPUSH Q5M PRN PRN Reason: Excessive sedation or RR < 8 Naloxone HCl (Naloxone Hcl 0.4 Mg/Ml Vial) 0.04 mg IVPUSH Q5M PRN PRN Reason: Excessive sedation or RR < 8 Omeprazole (Omeprazole 20 Mg Capsule.Dr) 20 mg PO DAILY@0630 [facility] Last Admin: 01/17/25 06:28 Dose: 20 mg Ondansetron HCl (Ondansetron Hcl 4 Mg/2 Ml Vial) 4 mg IVPUSH Q8H PRN PRN Reason: Nausea and Vomiting Oxycodone HCl (Oxycodone Hcl Immed Release 5 Mg Tablet) 5 mg PO Q6H PRN PRN Reason: Pain, Severe (Pain Scale 7-10) Last Admin: 01/17/25 05:41 Dose: 5 mg Prazosin HCl (Prazosin Hcl 1 Mg Capsule) 2 mg PO BEDTIME [facility]; Protocol Last Admin: 01/17/25 03:50 Dose: 2 mg Prednisone (Prednisone 20 Mg Tablet) 40 mg PO DAILY [facility] Last Admin: 01/17/25 10:16 Dose: 40 mg Propranolol HCl (Propranolol Hcl La 80 Mg Cap.Sa.24h) 80 mg PO BEDTIME [facility]; Protocol Sodium Chloride (0.9 % Sodium Chloride Flush 3 Ml Syringe) 3 ml IVFLUSH QSHIFT [facility] Last Admin: 01/17/25 10:16 Dose: Not Given Home Medications ?Medication ?Instructions ?Recorded ?Confirmed ?Last Taken ?Type clonazepam 0.5 mg tablet 1 mg PO BEDTIME 03/13/2002/0101/15/25 History gabapentin 300 mg capsule 300 mg PO BEDTIME 03/13/20 0 01/16/25 01/15/25 History levothyroxine 100 mcg tablet 100 mcg PO DAILY 03/13/20 01/16/25 01/15/25 History omeprazole 20 mg capsule,delayed 20 mg PO BID@0630,163 0 03/13/20 01/16/25 01/15/25 History release zolpidem 10 mg tablet (Ambien) 10 mg PO BEDTIME PRN Sl eep 03/13/20 01/16/25 01/15/25 History albuterol sulfate 90 mcg/actuation 2 puff inhalation Q 4H PRN 01/16/25 01/16/25 01/15/25 History aerosol inhaler (Ventolin HFA) Shortness Of Breath Or Wheezing cariprazine 3 mg capsule (Vraylar) 3 mg PO BEDTIME 02/0101/16/25 01/15/25 History cetirizine 10 mg tablet 10 mg PO DAILY 01/16/2502/01 Unknown History cholecalciferol (vitamin D3) 50 50 mcg PO QAM 01/16/25 01/16/25 01/15/25 History mcg (2,000 unit) capsule dextroamphetamine-amphetamine ER 1 cap PO DAILY 01/16/25 Unknown Histor y 30 mg 24hr capsule,extend release (Adderall XR) drospirenone (contraceptive) 4 mg 1 tab PO DAILY 01/1601/16/25 Unknown History (28) tablet (Slynd) fluticasone propionate 50 1 spray intranasal DAILY 02/0101/16/25 01/15/25 History mcg/actuation nasal spray,suspension meloxicam 7.5 mg tablet 7.5 mg PO BID PRN pain 01/1601/16/25 01/15/25 His tory prazosin 2 mg capsule 2 mg PO BEDTIME 01/16/2502/0101/15/25 History propranolol 80 mg capsule,24 80 mg PO BEDTIME 01/16/25 01/16/25 Unknown History hr,extended release Physical Exam Vital Signs and Narrative: Vital Signs: Last Vital Signs Temp 96.9 F 01/17/25 07:47 Pulse 85 01/17/25 07:47 Resp 16 01/17/25 07:47 BP 121/56 L 01/17/25 07:47 Pulse Ox 97 01/17/25 07:47 O2 Del Method Shovel Mask 01/17/25 07:47 O2 Flow Rate 9.0 01/17/25 07:47 FiO2 40 01/17/25 03:56 BMI result Body Mass Index 30.1 General: AO X 3, no acute distress Resp: Crackles at bases and mild wheezes bilateral, no accessory muscles used CVS: S1,S2,RRR GI: soft, non tender, non distended Neuro: motor grossly intact, alert Psych: appropriate affect, appropriate insight Results Imaging Radiologist's Impressions: Impressions Chest X-Ray 01/16/25 12:37 IMPRESSION: Low lung volumes, probable left basilar atelectasis, and trace fluid in the minor fissure. Left basilar pneumonia is not ruled out. Electronically signed by: Franklin Telles MD 01/16/2025 01:05 PM EDT RP Assessment and Plan (1) PTSD (post-traumatic stress disorder): Status: Acute Plan 35F PMH hypothryoid, mood disorder, mild intermittent asthma, obesity, admitted to gen surgery for elective ventral hernia repair, course complicated by acute hypoxia Acute hypoxic respiratory failure Likely combination of unspecified asthma with acute decompensation and postoperative atelectasis Now on room air, check on ambulation - if stable can complete treatment outpatient Continue prednisone, DuoNebs, incentive spirometry Hypothyroid Levothyroxine Mood disorder Vraylar, clonazepam, Adderall, propranolol, prazosin Obesity Weight loss recommended
[2025-01-17] MEDS: Albuterol/Iprat 2.5/0.5MG 3 ML AMPUL.NEB INHALE (11:27)
[2025-01-17 11:28] VITALS: PULSE 92; RESP 16; O2SAT 94
[2025-01-17 11:40] VITALS: BP 105/58; PULSE 93; RESP 16; TEMP 36.6
--- NOTE | 2025-01-17 12:41 | PM.EVENT ---
Event Note Date of Service: 01/17/25 Event Note: Seen on early afternoon rounds Able to tolerate ambulation without oxygen supplementation Feels well Now off O2 in appears comfortable Abdomen is soft and benign Discussed with the hospitalist service - okay to DC home Instructions reinforced patient Time Spent With Patient Time: Total time managing care of this patient today ____ minutes.
[2025-01-17 14:38] VITALS: BP 118/58; PULSE 93; RESP 18; TEMP 36.3; O2SAT 92
== END 2025-01-17 14:26 | disposition home or self-care (01) ==
LOC: HO.SSS 07:21 → HO.S3 17:25
PROVIDERS: Nurse Practitioner; PCP Pediatrics; Visit Provider Surgery
PROC: (CPT 49591; principal; 2025-01-16 07:30)
DX: K42.9 Umbilical hernia without obstruction or gangrene (principal); R06.02 Shortness of breath; R09.02 Hypoxemia; Z99.81 Dependence on supplemental oxygen; Y83.8 Other surgical procedures as the cause of abnormal reaction of the patient, or of later complication, without mention of misadventure at the time of the procedure; Y81.3 Surgical instruments, materials and general- and plastic-surgery devices (including sutures) associated with adverse incidents; Y92.239 Unspecified place in hospital as the place of occurrence of the external cause; J45.20 Mild intermittent asthma, uncomplicated; F43.10 Post-traumatic stress disorder, unspecified; E03.9 Hypothyroidism, unspecified; Z79.899 Other long term (current) drug therapy; Z88.0 Allergy status to penicillin
CPT/HCPCS: 49591; 71045; 81025; 94640; C1781; J0330; J0690; J1100; J2003; J2250; J2405; J2704; J2795; J3010; J7120

== ENCOUNTER → 2025-01-16 05:41 | Outpatient (BNV) | payer MEDICAID, SELFPAY | PROVIDERS: PCP Pediatrics; Visit Provider Internal Medicine | DX: F43.10 Post-traumatic stress disorder, unspecified (principal) | CPT/HCPCS: 99223 ==

== ENCOUNTER → 2025-01-16 05:41 | Outpatient (BNV) | payer MEDICAID, SELFPAY | PROVIDERS: PCP Pediatrics; Visit Provider Surgery | DX: K42.9 Umbilical hernia without obstruction or gangrene (principal) | CPT/HCPCS: 49591; 99213; 99499 ==

== ENCOUNTER → 2025-01-16 12:37 | Outpatient (BNV) | payer MEDICAID, SELFPAY | PROVIDERS: PCP Pediatrics; Visit Provider Radiology Diagnostic Radiology | DX: R91.8 Other nonspecific abnormal finding of lung field (principal) | CPT/HCPCS: 71045 ==

== ENCOUNTER 2025-01-30 11:22 | Outpatient (AMB) | payer MEDICAID, SELFPAY ==
--- OUTSIDE RECORDS SUMMARY | 2025-01-25 11:00 | XMS_ITS | Encounter Summary ---
Author Organization [employer] Address [address] [place] [address] [address] [place] [address] Care Team Providers Care Marine Pilot Name Role Phone Tiny Richter MD Primary Care Provider [phone] Reason for Referral * PFT (Routine) - Authorized Specialty Diagnoses / Procedures Referred By Contac t Referred To Contact Diagnoses Postoperative hypoxia Procedures Pulmonary Function Test Tiny Richter MD [address] [place] [address] Phone: tel: fax: [address] Phone: tel: fax: Referral ID Status Reason Start Date Expiration Date V isits Requested Visits Authorized [id number] Authorized 01/25/2025 01/25/2026 1 1 Encounter Details Date Type Department Care Team (Latest Contact Info) Description 01/25/2025 11:00 AM EDT Office Visit [facility] CH[facility] MED & PEDS [address] [place], [place] [phone] Tiny Richter MD [address] [place] [address] Postoperative hypoxia (Primary Dx); Autoimmune hypothyroidism; Generalized anxiety disorder; Reducible umbilical hernia Social History Tobacco Use Types Packs/Day Years Used Date Smoking Tobacco: Never Passive Smoke Exposure: Never Smokeless Tobacco: Never Alcohol Use Standard Drinks/Week Comments Never 0 (1 standard drink = 0.6 oz pur e alcohol) Depression Answer Date Recorded Patient Health Questionnaire-9 Score 14 01/25/2025 Patient Health Questionnaire-9 Score 14 01/25/2025 Last PHQ-9: Questionnaire Data Not on file 0 01/25/2025 Housing Stability Answer Date Recorded What is [...] Answer Date Recorded Patient Health Questionnaire-2 Score 3 01/25/2025 Internet Access Answer Date Recorded Internet Access [...] Sign Reading Time Taken Comments Blood Pressure 128/70 01/25/2025 10:55 AM EDT Pulse 100 01/25/2025 10:55 AM EDT Temperature 36.2 C (97.2 F) 01/25/2025 10:55 AM EDT Respiratory Rate 20 01/25/2025 10:5 5 AM EDT Oxygen Saturation 96% 01/25/2025 10: 55 AM EDT Inhaled Oxygen Concentration - - Weight 72.9 kg (160 lb 12.8 oz) 025 10:55 AM EDT Height 147.3 cm (4' 10 ) 01/25/2025 10: 55 AM EDT Body Mass Index 33.61 01/25/2025 10:55 AM EDT documented in this encounter Functional Status * Over the past 2 weeks, how often have you been bothered by any of the following problems? Question Answer Date of Assessment Author Patient Health Questionnaire-2 Score 3 01/08 10:56 AM Tash Gabriel [place] * Little interest or pleasure in doing things Answer Date of Assessment Author More than half the days 01/25/2025 10:56 AM Tash Gabriel MA * Feeling down, depressed, or hopeless Answer Date of Assessment Author Several days 01/25/2025 10:56 AM Jackie Gabriel MA * Trouble falling or staying asleep, or sleeping too much Answer Date of Assessment Author Nearly every day 01/25/2025 10:56 AM Tash Gabriel MA * Feeling tired or having little energy Answer Date of Assessment Author Nearly every day 01/25/2025 10:56 AM Tash Gabriel MA * Poor appetite or overeating Answer Date of Assessment Author Nearly every day 01/25/2025 10:56 AM Tash Gabriel MA * Feeling bad about yourself - or that you are a failure or have let yourself or your family down Answer Date of Assessment Author Not at all 01/25/2025 10:56 AM Jackie Gabriel MA * Trouble concentrating on things, such as reading the newspaper or watching television Answer Date of Assessment Author Several days 01/25/2025 10:56 AM Jackie Gabriel MA * Moving or speaking so slowly that other people could have noticed? Or the opposite - being so fidgety or restless that you have been moving around a lot more than usual. Answer Date of Assessment Author Several days 01/25/2025 10:56 AM Jackie Gabriel MA * Thoughts that you would be better off or hurting yourself in some way Answer Date of Assessment Author Not at all 01/25/2025 10:56 AM Jackie Gabriel MA * Patient Health Questionnaire-9 Score Answer Date of Assessment Author 14 01/25/2025 10:56 AM Jackie Gabriel MA * How difficult have these problems made it for you to do your work, take care of things at home, or get along with other people? Answer Date of Assessment Author Somewhat difficult 01/25/2025 10:56 AM Tash Gabriel MA documented as of this encounter Progress Notes * Tiny Richter MD - 01/25/2025 11:00 AM EDT Images from the original note were not included. Subjective Patient ID: Steve Sow is a 35 y.o. female who presents for f/u hernia repair sx. 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 Patient is here because she had postop hypoxia and difficult intubation per patient. She received nebulizer treatment as well as steroid treatment. Feels better today and denies any abdominal pain or problems with her incision which is healing well. She has a follow-up with surgeon next Wednesday. Denies fevers or shortness of breath at rest. Patient has past history of mild intermittent asthma for which she was using albuterol as needed. Patient is not a smoker. Review of Systems Constitutional: Negative for activity change, chills, fever and unexpected weight change. Respiratory: Negative for cough, shortness of breath and wheezing. Cardiovascular: Negative for chest pain, palpitations and leg swelling. Gastrointestinal: Negative for abdominal pain and blood in stool. Endocrine: Negative for polydipsia and polyuria. Genitourinary: Negative for decreased urine volume, difficulty urinating, dysuria and hematuria. Musculoskeletal: Negative for arthralgias and gait problem. Skin: Negative for color change and rash. Neurological: Negative for dizziness and headaches. Hematological: Negative for adenopathy. Psychiatric/Behavioral: Negative for dysphoric mood, hallucinations, sleep disturbance and suicidalideas. The patient is not nervous/anxious. Objective BP 128/70 (BP Location: Left arm, Patient Position: Sitting, BP Cuff Size: Adult) [id number] Temp 97.2 ??F (36.2 ??C) (Oral) Resp 20 Ht 4' 10 (1.473 m) Wt 160 lb 12.8 oz (72.9 kg) SpO2 96% BMI 33.61 kg/m?? Physical Exam Vitals reviewed. Constitutional: General: She is not in acute distress. Appearance: Normal appearance. She is not ill-appearing. HENT: Head: Normocephalic. Right Ear: Tympanic membrane and ear canal normal. Left Ear: Tympanic membrane and ear canal normal. Nose: Nose normal. Mouth/Throat: Mouth: Mucous membranes are moist. Pharynx: No oropharyngeal exudate or posterior oropharyngeal erythema. Eyes: Extraocular Movements: Extraocular movements intact. Conjunctiva/sclera: Conjunctivae normal. Pupils: Pupils are equal, round, and reactive to light. Cardiovascular: Rate and Rhythm: Normal rate and regular rhythm. Pulses: Normal pulses. Heart sounds: Normal heart sounds. Pulmonary: Effort: Pulmonary effort is normal. No respiratory distress. Breath sounds: Normal breath sounds. No wheezing. Abdominal: General: Bowel sounds are normal. There is distension. Palpations: Abdomen is soft. Tenderness: There is no guarding. Comments: Umbilical incision well-healed. Musculoskeletal: General: Normal range of motion. Cervical back: Normal range of motion. Skin: General: Skin is warm. Capillary Refill: Capillary refill takes less than 2 seconds. Neurological: General: No focal deficit present. Mental Status: She is alert and oriented to person, place, and time. Psychiatric: Mood and Affect: Mood normal. Behavior: Behavior normal. Thought Content: Thought content normal. Judgment: Judgment normal. Assessment/Plan Diagnoses and all orders for this visit: Postoperative hypoxia Comments: Patient has history of mild asthma. New PFTs ordered today. O2 sat normal today. Added Arnuity oncea day for asthma control. Refer to pulmonary if needed. Orders: - Pulmonary Function Test; Future Autoimmune hypothyroidism Comments: Increase dose of levothyroxine from 100 to 112 mcg daily. Recheck TFTs in 6 weeks order placed. Orders: - TSH W/Reflex to FT4; Future Generalized anxiety disorder Comments: Patient sees psychiatrist Dr. Landon. Meds reconciled today. Suggested to see a therapist as well. Reducible umbilical hernia Comments: Patient had a recent umbilical hernia repair done by [facility] surgeons. Had postop hypoxia which resolved. PFTs ordered today. Other orders - levothyroxine (Synthroid) 112 MCG tablet; Take 1 tablet (112 mcg) by mouth before breakfast. - fluticasone furoate (Arnuity Ellipta) 100 MCG/ACT inhaler; Inhale 1 puff Once per day. documented in this encounter Plan of Treatment Upcoming Encounters Date Type Department Care Team (Late st Contact Info) Description 03/22/2025 11:30 AM EST Office Visit [facility] OPTOMETRY [address] [place], [place] [phone] Vaishnavi Ledezma, OD [address] [place] [address] Scheduled Orders Name Type Priority Associated Diagnoses Orde r Schedule Pulmonary Function Test PFT Routine Postoperative hypoxia Expected: 01/25/2025, Expires: 07/25/2025 TSH W/Reflex to FT4 Lab Routine Autoimmune hypothyroidism Expected: 01/25/2025 (Approximate), Expires: 01/25/2026 documented as of this encounter Visit Diagnoses Diagnosis Postoperative hypoxia- Primary Autoimmune hypothyroidism Generalized anxiety disorder Reducible umbilical hernia documented in this encounter Additional Health Concerns Assessment Noted Time PHQ-9 Depression Total Score: 14 025 10:56 AM EDT documented as of this encounter Care Teams Marine Pilot Relationship Specialty Start Date End Date Tiny Richter MD [address] [place] [id number] PCP - General Family Medicine 09/01/17 documented as of this encounter
--- NOTE | 2025-01-30 11:26 | MHC.OFFVIS ---
Vital Signs 01/30/25 11:31 Weight 164 lb BP 118/60 Blood Pressure Location Lt radial Position Sitting Pulse 87 Intake Visit Reasons: s/p umbilical hernia repair Intake Note: Patient here s/p repair of umbilical hernia with Phasix mesh. Patient c/o: no concerns. Steri strip fell off. No longer taking rx pain meds. Surgery (FM): 01-16-2025 Security Program Manager Required: No Accompanied by: Self / Same As Patient Allergies Penicillins Allergy (Intermediate, Verified 01/30/25 11:31) Hives HPI HPI s/p umbilical hernia repair: Details: Doing well, not experiencing pain. Diet and bowel function returning towards baseline. Denies redness or discharge from the incision site. she reports she did follow up with her primary care because she was hypoxic after her procedure. States that they added a new inhaler that included the steroid. And her breathing has been better. She does note that she has had her period for about 12 days. It began about 2 days after the procedure and she is wondering if this is correlated. She denies pain associated with this bleeding. 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 Feeding by G-tube Acid reflux Surgical History (Updated 01/30/25 @ 13:00 by Oliverio Nye PA-C) H/O umbilical hernia repair (01/16/25) Hx laparoscopic cholecystectomy History of tonsillectomy Family History Father Stomach cancer Mother HTN (hypertension) Diabetes Stroke Social History Household Members Other:: she lives alone Alcohol intake: current Alcohol intake frequency: a few times a week Patient Tobacco Use Status: Never used Tobacco Substance Use Type: Marijuana service: No 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 Nontender. Inspection: No distended Palpation (GI): Soft to palpation and nontender Neuro General: patient oriented x3 Assessment & Plan Assessment & Plan (1) S/P umbilical hernia repair, follow-up exam: Code(s): Z09 - Encounter for follow-up examination after completed treatment for conditions other than malignant neoplasm Category: Medical Plan 35-year-old female s/p umbilical hernia repair with mesh on 01/16/2025. Overall doing well, not experiencing pain. She was kept postoperatively due to hypoxia, she does have a history of asthma. States she followed up with her primary care who prescribed her a new inhaler that includes a steroid and her breathing has improved since. She does report she has been experiencing a periode For the last 12 days this started about 2 days after the procedure. I currently do not believe that this is related to the procedure and recommended that she follow up with her primary care or docket specialist to discuss this abnormal bleeding. On exam the abdomen is soft and benign. The incision site appears to be healing well. No concern for infection at this time. We will continue with activity restrictions for the next 4 weeks. She is to follow up in 4 weeks for routine follow up. She can return sooner with any concerns or questions. Coding Level of Care Code Est Pt Level 3 (98523) Diagnoses S/P umbilical hernia repair, follow-up exam Z09
[2025-01-30 11:31] VITALS: BP 118/60; PULSE 87
--- OUTSIDE RECORDS SUMMARY | 2025-01-30 14:16 | XMS_ITS | Encounter Summary ---
Author Organization [employer] Address [address] [place] [address] Care Team Providers Care Higher Education Administrator Name Role Phone Tiny Richter MD Primary Care Provider [phone] Reason for Visit * Reason Onset Date Comments Med Refill 01/18/2025 Encounter Details Date Type Department Care Team ([facility] st Contact Info) Description 01/18/2025 Refill [facility] CHC MED & PEDS [address] [place] [address] Tiny Richter MD [address] [place] [address] Social History Tobacco Use Types Packs/Day Years [...] AM EST Office Visit [facility] [address] [place] [address] Vaishnavi Ledezma, OD [address] [place] [address] documented as of this encounter Visit Diagnoses Not on filedocumented in this encounter Additional Health Concerns Assessment Noted Time PHQ-9 Depression Total Score: 15 025 10:56 AM EST documented as of this encounter Care Teams Higher Education Administrator Relationship Specialty Start Date End Date Tiny Richter MD [address] [place] [address] PCP - General Family Medicine 09/01/17 documented as of this encounter
--- OUTSIDE RECORDS SUMMARY | 2025-01-30 14:16 | XMS_ITS | Encounter Summary ---
Author Organization [employer] Address [address] [place] [address] [address] [place] [address] Care Team Providers Care Ranch Helper Name Role Phone Tiny Richter MD Primary Care Provider [phone] Reason for Visit * Reason Comments Med Refill Encounter Details Date Type Department Care Team (Late Contact Info) Description 04/09/2023 Refill [facility] CHC MED & PEDS [address] [place] [address] Tiny Richter MD [address] [place] [address] Social History Tobacco Use Types Packs/Day Years [...] Description 03/22/2025 11:30 AM EST Office Visit [facility] OPTOMETRY [address] [place] [address] TarVaishnavi josé, OD [address] [place] [address] documented as of this encounter Visit Diagnoses Not on filedocumented in this encounter Care Teams Ranch Helper Relationship Specialty Start Date End Date Tiny Richtre MD [address] [place] [id number] PCP - General Family Medicine 09/01/17 documented as of this encounter
--- OUTSIDE RECORDS SUMMARY | 2025-01-30 14:16 | XMS_ITS | Clinical Summary ---
Author Organization [employer] Address [address] [place] [address] Care Team Providers Care Supervisor Customer Records Division Name Role Phone Tiny Richter MD Primary Care Provider [phone] Allergies Active Allergy Reactions Criticality Noted Date [...] MORNING 90 tablet 1 12/01/19 24 Active Vraylar 3 MG capsule Take 1 capsule by mouth at bedtime. 04/14/20 24 Active zolpidem CR (Ambien CR) 12.5 MG ER tablet Take 12.5 mg by mouth at bedtime. 05/29/19 25 Active cholecalciferol VITAMIN D (Vitamin D-3) 50 MCG (2000 UT) capsule TAKE 1 CAPSULE BY MOUTH IN THE MORNING 90 capsule 1 07/18/19 25 Active Ventolin HFA 108 (90 Base) MCG/ACT inhalerIndicatio ns:Moderate persistent asthma without complication INHALE 2 PUFFS BY MOUTH EVERY 4 HOURS IF NEEDED FOR WHEEZING OR SHORTNESS OF BREATH 18 g 2 10/25/19 25 Active Drospirenone (Slynd) 4 MG tablet Take 1 tablet by mouth Once per day. 28 tablet 11 11/02/19 25 Active omeprazole OTC (PriLOSEC OTC) 20 MG EC tablet Take 1 tablet (20 mg) by mouth before breakfast and before evening meal. 180 tablet 2 12/23/19 25 Active diphenhydrAMINE (Banophen) 25 MG tablet Take 1 tablet (25 mg) by mouth every 6 (six) hours if needed for itching. TAKE 1 TABLET BY MOUTH 1 TIME NEEDED FOR ALLERGIC REACTIONTAKE 30 tablet 5 12/23/19 25 Active EPINEPHrine (Epipen) 0.3 MG/0.3ML injection syringe Inject 0.3 mL (0.3 mg) as directed 1 (one) time for 1 dose. 1 each 1 12/23/19 25 Active meloxicam (Mobic) 7.5 MG tablet TAKE 1 TABLET BY MOUTH TWICE DAILY WITH FOOD NEEDED FOR PAIN 60 tablet 12/29/19 25 Active fluticasone (Flonase) 50 MCG/ACT nasal spray SHAKE LIQUID AND USE 1 SPRAY IN EACH NOSTRIL IN THE MORNING 48 g 1 12/29/19 25 Active prazosin (Minipress) 2 MG capsule Take 2 mg by mouth. 01/17/20 25 Active levothyroxine (Synthroid) 112 MCG tablet Take 1 tablet (112 mcg) by mouth before breakfast. 30 tablet 5 01/26/20 25 026 Active fluticasone furoate (Arnuity Ellipta) 100 MCG/ACT inhaler Inhale 1 puff Once per day. 1 each 11 01/26/20 026 Active levothyroxine (Synthroid, Levoxyl) 100 MCG tablet Take 1 tablet (100 mcg) by mouth Once per day. 90 tablet 03/24/20 24 025 Discontin ued(Ineff ective) levothyroxine (Synthroid, Levoxyl) 100 MCG tablet Take 1 tablet (100 mcg) by mouth before breakfast. 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 Encounters Date Type Department Care Team Description 01/25/2025 11:00 AM EDT Office Visit [facility] [address] [place] [address] Tiny Richter MD Postoperative hypoxia (Primary Dx); Autoimmune hypothyroidism; Generalized anxiety disorder; Reducible umbilical hernia 01/25/2025 Travel 01/24/2025 Telephone [facility] [address] [place] [address] Tiny Richter MD Chart Prep 01/22/2025 Travel 01/19/2025 Telephone [facility] [address] [place] [address] Tiny Richter MD Results 01/18/2025 Refill [facility] [address] [place] [address] Tiny Richter MD 01/18/2025 Results Follow-Up [facility] [address] [place] [address] Tiny Richter MD XR Chest 1 View 01/16/2025 Orders Only GENERIC EXTERNAL DATA DEPARTMENT Provider, Generic External Data 12/28/2024 Refill [facility] [address] [place] [address] Tiny Richter MD 12/28/2024 Refill [facility] [address] [place] [address] Tiny Richter MD 12/22/2024 Refill [facility] [address] [place], [place] [phone] Tiny Richter MD 12/22/2024 Refill [facility] [address] [place], [place] [phone] Love Morrison MD 12/22/2024 Refill [facility] [address] [place], [place] [phone] Tiny Richter MD 11/17/2024 Telephone [facility] [address] [place] [phone] Juliet Freeman CN Chart Prep 11/14/2024 11:30 AM EDT Office Visit [facility] [address] [place] [address] Tiny Richter MD Autoimmune hypothyroidism (Primary Dx); Umbilical hernia without obstruction and without gangrene 11/14/2024 Results Follow-Up [facility] [address] [place] [address] Tiny Richter MD TSH W/Reflex to FT4 11/14/2024 Orders Only [facility] [address] [place], [place] [phone] Tiny Richter MD 11/14/2024 Travel 11/13/2024 Telephone [facility] [address] [place] [address] Tiny Richter MD chart Prep 11/02/2024 10:45 AM EDT Office Visit [facility] [address] [place] [address] Joseph, Vaishnavi, OD Hypermetropia, bilateral (Primary Dx) 11/01/2024 11:30 AM EDT Office Visit [facility] [address] [place] [address] Juliet Freeman CNM Family planning counseling (Primary Dx); Pelvic pain; Encntr screen for infections w sexl mode of transmiss 11/01/2024 Orders Only [facility] [address] [place] [address] Tiny Richter MD Ventral hernia without obstruction or gangrene (Primary Dx) 11/01/2024 Travel 11/01/2024 Results Follow-Up [facility] [address] [place] [address] Nicci Luo, BRADF[place] CT Abdomen Pelvis w/ Contrast 10/31/2024 Telephone [facility] [address] [place], [place] [phone] Tiny Richter MD chartprep from Last 3 Months Immunizations Immunization Administration Dates Next Due HPV, Quadrivalent 03/08/2009,11/27/2008,07/10/19 09 Hep B, adult 08/02/2024 Influenza injectable quadriv alent preservative free 03/21/2021,02/21/2018 Influenza, IIV3, injectable 01/30/2011, 0 Meningococcal ACWY, unspecified 04/26/2009 Novel [id number], all formulations 2008 Tdap 03/16/2018,11/27/2008 Social History [...] Mass Index 33.61 01/25/2025 10:55 AM EDT Plan of Treatment Upcoming Encounters Date Type Department Care Team (Late st Contact Info) Description 03/22/2025 11:30 AM EST Office Visit [facility] [address] [place] [address] Vaishnavi Ledezma, OD [address] [place] [address] Health Maintenance Due Date Last Done Comments Pneumococcal Vaccine: Pediatrics (0 to 5 Years) and At-Risk Patients (6 to 49) Years (1 of 2 - PCV) 2010 Hepatitis B Vaccines (2 of 3 - 19+ 3-dose series) 08/30/2024 08/02/2024 COVID-19 Vaccine (4 - 2024- season) 2025 03/21/2021, 08/14/2020, 07/17/2020 Influenza Vaccine (#1) 2025 , 02/21/2018, 01/30/2011, Additional history exists SDOH Screening 05/24/2025 05/24/2024 Depression Monitoring 07/25/2025 01/25/2025, 025 Cervical Cancer Screening 10/05/2025 HPV/Cotest 10/05/2025 10/05/2020 Pap Smear 10/05/2025 10/05/2020 Family Planning (PISQ) 11/01/2025 11/01/2024 Tobacco Screening 11/14/2025 11/14/2024 Disability Screening 01/23/2026 01/23/2025 Alcohol/Substance Use Screening 01/25/2026 01/25/2025 DTaP/Tdap/Td Vaccines (3 - Td or Tdap) [...] Priority Date/Time Associated Diagnosis Comments XR CHEST 1 VIEW Routine 01/16/2025 12:37 PM EDT HCG, QL, URINE Routine 01/16/2025 5:55 AM EDT T4, FREE Routine 11/14/2024 1:49 PM EDT [...] Recently Relevant to Health Maintenance Results * XR Chest 1 View (01/16/2025 12:37 PM EDT) Anatomical Region Laterality Modality Chest Radiographic Leatha ging 01/16/2025 12:3 7 PM EDT Narrative 01/16/2025 1:07 PM EDT [address] [address] XRay Report Signed Patient: Steve Sow MR#: [id number] : 1990 Acct:[id number] Age/Sex: 35 / F ADM Date: 01/16/25 Loc: HO.SSS Attending Dr: Karan Cobos MD Ordering Physician: Delfina Blanco DO Date of Service: 01/16/25 Procedure(s): XR chest 1V Accession Number(s): [id number] cc: Tiny Richter MD; Delfina Blanco DO Reason for Exam: Post-operative wheezing and hypoxia EXAMINATION: XR CHEST CLINICAL INFORMATION: Post-operative wheezing and hypoxia COMPARISON: CT 01/31/2020 TECHNIQUE: Frontal view of the chest was obtained. FINDINGS: Lung volumes are low. There is minimal left basilar density partially obscuring the hemidiaphragm. There is trace fluid tracking along the minor fissure in the right lung. Heart size is within normal limits. XR/XR chest 1V IMPRESSION: Low lung volumes, probable left basilar atelectasis, and trace fluid in the minor fissure. Left basilar pneumonia is not ruled out. Electronically signed by: Franklin Telles MD 01/16/2025 01:05 PM EDT RP Dictated By: Franklin Telles MD Signed By: <Electronically signed by Franklin Telles MD in OV> 01/16/25 1305 DD/ 1237 TD/TT: 01/16/25 [address] [employer] Former: Procedure Note Donotuseinterpreter, Image - 01/16/[address] [address] XRay Report Signed Patient: Del SowR#: [id number] : 1990Acct:[id number] Age/Sex: 35 / FADM Date: 01/16/25 Loc: HO.SSS Attending Dr: Karan Cobos MD Ordering Physician: Delfina Blanco DO Date of Service: 01/16/25 Procedure(s): XR chest 1V Accession Number(s): [id number] cc: Tiny Richter MD; Delfina Blanco DO Reason for Exam: Post-operative wheezing and hypoxia EXAMINATION: XR CHEST CLINICAL INFORMATION: Post-operative wheezing and hypoxia COMPARISON: CT 01/31/2020 TECHNIQUE: Frontal view of the chest was obtained. FINDINGS: Lung volumes are low. There is minimal left basilar density partially obscuring the hemidiaphragm. There is trace fluid tracking along the minor fissure in the right lung. Heart size is within normal limits. XR/XR chest 1V IMPRESSION: Low lung volumes, probable left basilar atelectasis, and trace fluid in the minor fissure. Left basilar pneumonia is not ruled out. Electronically signed by: Franklin Telles MD 01/16/2025 01:05 PM EDT RP Dictated By: Franklin Telles MD Signed By: <Electronically signed by Franklin Telles MD in OV> 01/16/25 1305 DD/ 1237 TD/TT: 01/16/25 1255 [employer] Former: us [facility] External Provider IMG XR PROCEDURES Final Result * HCG, Qualitative, Urine (01/16/2025 5:55 AM EDT) Urine NEGATIVE NEGATIVE [facility] Comment:This test was develo ped to detect early . Falsenegative results may occur after the 5th - 7th week ofpregnancy when using this test method. If clinicallyindicated, consider a serum hCG. 01/16/2025 5:55 AM EDT 01/16/2025 6:12 AM EDT Generic External Data Provider LAB URINE ORDERAB LES Final Result [facility] [address] [place] [phone] * (ABNORMAL) TSH W/Reflex to FT4 (11/14/2024 1:49 PM EDT) TSH reflex Free T4 5.10(H) 0.32 - 4.0 uIU/mL [facility] Blood Venous blood specimen / Unknown 11/14/2024 1:49 PM EDT 11/14/2024 3:03 PM EDT Tiny Richter MD LAB BLOOD ORDERABLES Final Re sult Performing Organization Address [facility]/ZIP Co de Phone Number [facility] [address] [place] [phone] * T4, Free (11/14/2024 1:49 PM EDT) Free T4 (Free Thyroxine) 0.97 0.71 - 1.85 ng/dL [facility] 11/14/2024 1:49 PM EDT 11/14/2024 3:03 PM EDT Tiny Richter MD LAB BLOOD ORDERABLES Final Re sult Performing Organization Address [facility] Co de Phone Number [facility] [address] [place] [phone] * Trichomonas RNA (Urine/Vaginal) (11/01/2024 11:38 AM EDT) Trichomas vaginalis RNA, QL, TMA NOT DETECTED NOT DETECTED [facility] Comment:For additional infor shayne, please refer tohttp://education.incrediblue.[employer]/faq/Trichomonastma(This link is being provided for informational/educational purposes only.)THIS TEST WAS PERFORMED AT:[address] [place] [phone] LOWERY MD Swab Vaginal structure / Unknown 11/01/2024 11:38 AM EDT 11/01/2024 4:36 PM EDT Juliet Freeman CNM LAB BODY FLUIDS AND STOOL S ORDERABLES Final Result Performing Organization Address [facility]/ZIP Co de Phone Number [facility] [address] [place] [phone] [phone] * Chlamydia/N. Gonorrhoeae RNA, TMA, Vagina (11/01/2024 11:38 AM EDT) CT PCR NOT DETECTED Not Detect. [facility] Comment:A not detected test result [...] psychologicalconsequences. NG PCR NOT DETECTED Not Detect. [facility] Comment:A not detected test result [...] MICROBIOLOGY - GENERA L ORDERABLES Final Result [facility] [address] [place] [phone] * Hepatitis C Antibody with Reflex to HCV, RNA, Quantitative, Real-Time PCR (06/07/2024 1:01 PM EST) Hepatitis C Antibody Nonreactive Nonreactive [facility] Comment:Antibodies to HCV no t detected; does not exclude early acuteHCV infection. Blood Venous blood specimen / Unknown 06/07/2024 1:01 PM EST 06/07/2024 2:37 PM EST Tiny Richter MD LAB BLOOD ORDERABLES Final Re sult Performing Organization Address [facility] Co de Phone Number [facility] [address] [place] [phone] * HIV-1/2 Antigen and Antibodies, Fourth Generation, with Reflexes (06/07/2024 1:01 PM EST) Pathologist [facility] HIV AB/AG Nonreactive Nonreactive [facility] Comment:HIV-1 p24 Ag and/or HIV-1/HIV-2 Ab not detected.A test result that is nonreactive does not exclude thepossibility of exposure to or infection with HIV-1 and/orHIV-2. Nonreactive results in this assay for individualswith prior exposure to HIV-1 and/or HIV-2 may be due toantigen and antibody levels that are below the limit ofdetection of this assay.[employer] HIV Ag/Ab Combo assay result andsupplemental assay results should be interpreted inconjunction with the patient's clinical presentation,history and other laboratory results. If the results areinconsistent with clinical evidence, additional testing issuggested to confirm the result. Blood Venous blood specimen / Unknown 06/07/2024 1:01 PM EST 06/07/2024 2:37 PM EST Tiny Richter MD LAB BLOOD ORDERABLES Final Re sult Performing Organization Address City/[facility]/ZIP Co de Phone Number [facility] [address] [place] [phone] [phone] * THINPREP PAP (10/05/2020 11:02 AM [...] along with historic and current clinical information. Cmm Technician : SEE COMMENT [facility] Comment: NSS, CT(ASCP) CT screening location: [place] [address] Interpretation/R esult: Negative for intraepithelial lesion or malignancy. [facility] LMP: NONE GIVEN [facility] Prev. BX: NONE GIVEN [facility] Prev. PAP: NONE GIVEN [facility] SOURCE: None given [facility] Statement Of Adequacy: SEE COMMENT [facility] Comment: Satisfactory for evaluation. Endocervical/transformation zone component present. Age and/or menstrual status not provided 10/05/2020 11:0 2 AM EDT Tiny Richter MD LAB PATHOLOGY ORDERABLES Chiquita moore Result [facility] [address] * HPV mRNA E6/E7 (10/05/2020 11:02 AM EDT) HPV nRNA E6/E7 Not Detected Not Detected [facility] Comment: Methodology: Aircraft Cabin Cleaner-Mediated Amplification This assay detects E6/E7 viral messenger RNA (mRNA) from 14 high-risk HPV types (16,18,31,33,35,39,45,51,52,56,58,59,66,68). The analytical performance characteristics of this assay have been determined by [employer]. The modifications have not been cleared or approved by the FDA. This assay has been validated pursuant to the CLIA regulations and is used for clinical purposes. For additional information, please refer to http://education.incrediblue.[employer]/faq/CHA202y9 (This link if provided for information/ educational purposes only.) NO COLLECTION DATE RECEIVED. WE HAVE USED THE DATE THE SPECIMEN WAS RECEIVED BY THIS LABORATORY THE COLLECTION DATE. IF THIS IS INCORRECT, PLEASE CONTACT CLIENT SERVICES. PHONE NUMBER: 10/05/2020 11:0 2 AM EDT Tiny Richter MD LAB BLOOD ORDERABLES Final Re sult [facility] [address] from Last 3 Months or Most Recently Relevant to Health Maintenance [facility] Care Teams Supervisor Customer Records Division Relationship Specialty Start Date End Date Tiny Richter MD [address] [place] [address] PCP - General Family Medicine 09/01/17
--- OUTSIDE RECORDS SUMMARY | 2025-01-30 14:16 | XMS_ITS | Encounter Summary ---
Author Organization [employer] Address [address] [place] [address] Care Team Providers Care Paper Cone Drying Machine Operator Name Role Phone Tiny Richter MD Primary Care Provider [phone] Reason for Visit * Reason Onset Date Comments Med Refill 12/22/2024 Encounter Details Date Type Department Care Team ([facility] st Contact Info) Description 12/22/2024 Refill [facility] [address] [place] [address] Tiny Richter MD [address] [place] [address] Social History Tobacco Use Types Packs/Day Years [...] AM EST Office Visit [facility] [address] [place] [address] Vaishnavi Ledezma, OD [address] [place] [address] documented as of this encounter Visit Diagnoses Not on filedocumented in this encounter Additional Health Concerns Assessment Noted Time PHQ-9 Depression Total Score: 15 025 10:56 AM EST documented as of this encounter Care Teams Paper Cone Drying Machine Operator Relationship Specialty Start Date End Date Tiny Richter MD [address] [place] [address] PCP - General Family Medicine 09/01/17 documented as of this encounter
--- OUTSIDE RECORDS SUMMARY | 2025-01-30 14:16 | XMS_ITS | Encounter Summary ---
Author Organization [employer] Address [address] [place] [address] [address] [place] [address] Care Team Providers Care Tub Washer Name Role Phone Tiny Richter MD Primary Care Provider Encounter Details Date Type Department Care Team (Late st Contact Info) Description 11/23/2022 Orders Only [facility] [address] [place] [address] Lexii Suero LPN Social History Tobacco Use [...] Description 03/22/2025 11:30 AM EST Office Visit [facility] OPTOMETRY [address] [place], [place] [phone] Vaishnavi Ledezma OD [address] [place] [address] documented as of this encounter Visit Diagnoses Not on filedocumented in this encounter Care Teams Tub Washer Relationship Specialty Start Date End Date Tiny Richter MD [address] [place] [address] PCP - General Family Medicine 09/01/17 documented as of this encounter
--- OUTSIDE RECORDS SUMMARY | 2025-01-30 14:16 | XMS_ITS | Clinical Summary ---
Author Organization [facility] Address [address] [place] [address] Phone Care Team Providers Care Rn Labor And Delivery Name Role Phone Kofi Burks MD Primary Care Provider [phone] Allergies Active Allergy Reactions Criticality Noted Date Comments Penicillins 03/31/2024 Surgical History Surgery Date Site/Laterality Comments TONSILLECTOMY ADENOIDECTOMY, BILATERAL MYRINGOTOMY AND TUBES PROCEDURE: [place] TONSILLECTOMY & ADENOIDECTOMY <AGE 12 OTHER SURGICAL [...] - Td or Tdap) 03/16/2028 03/16/2018, 11/27/2008 RSV Immunization Adult Patients (1 - 1-dose 75+ series) 2066 HPV [...] on patient's age to complete this topic Insurance [place] Care Teams Rn Labor And Delivery Relationship Specialty Start Date End Date Kofi Burks MD [address] [place] [address] PCP - General 09/20/14
--- OUTSIDE RECORDS SUMMARY | 2025-01-30 14:16 | XMS_ITS | Encounter Summary ---
Author Organization [employer] Address [address] [place] [address] Care Team Providers Care Earth Moving Technician Name Role Phone Tiny Richter MD Primary Care Provider [phone] Encounter Details Date Type Department Care Team (Latest Contact Info) Description 01/25/2025 Travel Social History Tobacco Use Types Packs/Day [...] AM EDT documented as of this encounter Functional Status * Over the [...] [place] documented as of this encounter Plan of Treatment Upcoming Encounters Date Type Department Care Team (Late st Contact Info) Description 03/22/2025 11:30 AM EST Office Visit [facility] OPT[facility] [address] [place] [address] Vaishnavi Ledezma, OD [address] [place] [address] documented as of this encounter Visit Diagnoses Not on filedocumented in this encounter Additional Health Concerns Assessment Noted Time PHQ-9 Depression Total Score: 14 2 025 10:56 AM EDT documented as of this encounter Care Teams Earth Moving Technician Relationship Specialty Start Date End Date Tiny Richter MD [address] [place] [address] PCP - General Family Medicine 09/01/17 documented as of this encounter
--- OUTSIDE RECORDS SUMMARY | 2025-01-30 14:16 | XMS_ITS | Encounter Summary ---
Author Organization [employer] Address [address] [place] [address] Care Team Providers Care Hvac Instructor Name Role Phone Tiny Richter MD Primary Care Provider [phone] Reason for Visit * Reason Onset Date Comments Med Refill 12/22/2024 Encounter Details Date Type Department Care Team ([facility] st Contact Info) Description 12/22/2024 Refill [facility] PEDS [address] [place] [address] Love Morrison MD [address] [place] [address] Social History Tobacco Use Types Packs/Day Years [...] AM EST Office Visit [facility] [address] [place] [address] Vaishnavi Ledezma, OD [address] [place] [address] documented as of this encounter Visit Diagnoses Not on filedocumented in this encounter Additional Health Concerns Assessment Noted Time PHQ-9 Depression Total Score: 15 025 10:56 AM EST documented as of this encounter Care Teams Hvac Instructor Relationship Specialty Start Date End Date Tiny Richter MD [address] [place] [address] PCP - General Family Medicine 09/01/17 documented as of this encounter
--- OUTSIDE RECORDS SUMMARY | 2025-01-30 14:16 | XMS_ITS | Encounter Summary ---
Author Organization [employer] Address [address] [place] [address] [address] [place] [address] Care Team Providers Care Circuit Court Judge Name Role Phone Tiny Richter MD Primary Care Provider [phone] Encounter Details Date Type Department Care Team (Late Contact Info) Description 11/06/2022 Orders Only [facility] MED & PEDS [address] [place] [address] Fay Clark LPN Social History Tobacco Use [...] Description 03/22/2025 11:30 AM EST Office Visit [facility] OPTOMETRY [address] [place], [place] [phone] Vaishnavi Ledezma OD [address] [place] [address] documented as of this encounter Visit Diagnoses Not on filedocumented in this encounter Care Teams Circuit Court Judge Relationship Specialty Start Date End Date Tiny Richter MD [address] [place] [address] PCP - General Family Medicine 09/01/17 documented as of this encounter
== END 2025-01-30 11:39 | disposition home or self-care (01) ==
LOC: HO.HGS 11:23
PROVIDERS: PCP Pediatrics
DX: Z09 Encounter for follow-up examination after completed treatment for conditions other than malignant neoplasm (principal)
CPT/HCPCS: 99213

== ENCOUNTER → 2025-01-30 11:22 | Outpatient (BNVA) | payer MEDICAID, SELFPAY | PROVIDERS: PCP Pediatrics | DX: Z09 Encounter for follow-up examination after completed treatment for conditions other than malignant neoplasm (principal); Z98.890 Other specified postprocedural states | CPT/HCPCS: 99212 ==

== ENCOUNTER 2025-02-21 09:19 | Outpatient (AMB) | payer MEDICAID, SELFPAY ==
--- NOTE | 2025-02-21 09:20 | A.OFFVIS_ITS ---
Vital Signs 02/21/25 09:26 Weight 162 lb BP 116/63 Blood Pressure Location Rt brachial Position Sitting Pulse 95 Intake Visit Reasons: s/p umbilical hernia repair Intake Note: Patient here for 1mo s/p umbilical hernia repair. Patient c/o: on an off pain at superior part of umbilical area when pressed on. ALEXIS (VIDYA): 01-30-2025 Surgery (FM): 01-16-2025 Training Program Assistant Required: No Accompanied by: Self / Same As Patient Allergies Penicillins Allergy (Intermediate, Verified 02/21/25 09:27) Hives HPI HPI s/p umbilical hernia repair: Details: States she is overall doing well. She does note that she gets some pain when she is cleaning dishes and the area rubs up against the counter. Otherwise tolerating light activity at home. Appetite and bowel function at baseline. Denies fevers or chills. She does endorse some numbness around the incision site. Wondering when she can return to activity, she is an avid [employer] and also goes to the gym [facility] Medical History (Updated 01/25/25 @ 00:01 by Delroy Cabral) Reducible umbilical hernia Dilation of esophagus Abdominal pain Weight loss Dysphagia PTSD (post-traumatic stress disorder) Brain benign neoplasm (~12/2009) Esophagus disorder Feeding by G-tube Acid reflux Surgical History (Updated 01/30/25 @ 13:00 by Oliverio Nye PA-C) H/O umbilical hernia repair (01/16/25) Hx laparoscopic cholecystectomy History of tonsillectomy Family History Father Stomach cancer Mother HTN (hypertension) Diabetes Stroke Social History Household Members Other:: she lives alone Alcohol intake: current Alcohol intake frequency: a few times a week Patient Tobacco Use Status: Never used Tobacco Substance Use Type: Marijuana service: No 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 Physical Exam Vital Signs: Last Vital Signs Pulse 95 02/21/25 09:26 BP 116/63 02/21/25 09:26 Const General: comfortable and no acute distress Orientation/consciousness: patient oriented x3 Resp Effort & Inspection: normal respiratory effort and able to speak in complete sentences GI Other: Umbilical hernia incision site well healed, no palpable fluid collection, no surrounding erythema, nontender to palpation no recurrence on Valsalva Palpation (GI): Soft to palpation and nontender Neuro General: patient oriented x3 Assessment & Plan Assessment & Plan (1) S/P umbilical hernia repair, follow-up exam: Code(s): Z09 - Encounter for follow-up examination after completed treatment for conditions other than malignant neoplasm Category: Medical Plan 35-year-old female s/p umbilical hernia repair with mesh on 01/16/2025 returning to the office for routine one-month follow-up. Patient doing well overall. Gets occasional pain with direct contact, additionally experiencing some numbness at the incision site. Reassured her that I expect this to improve with time as she increases ambulation. Additionally expect the numbness to resolve in the next few weeks to months. Her appetite and bowel function are at baseline. No fevers at home. On exam the incision appears to be well healed, there was no evidence of recurrence on Valsalva. I have no concern for infection at this time. We will continue with activity restrictions no heavy lifting greater than 15 20 lb for the next week. I recommended that she resume ambulation next week at about half of what she does normally including the gym and archery. She is agreeable to this plan. This point no longer requiring routine follow up. Can return as needed for concerns in the future. Coding Level of Care Code Est Pt Level 3 (73062) Diagnoses S/P umbilical hernia repair, follow-up exam Z09
[2025-02-21 09:26] VITALS: BP 116/63; PULSE 95
--- OUTSIDE RECORDS SUMMARY | 2025-02-21 10:25 | XMS_ITS | Clinical Summary ---
Author Organization [employer] Address [address] [place] [address] Care Team Providers Care Stock Tracer Name Role Phone Tiny Richter MD Primary Care Provider [phone] Allergies Active Allergy Reactions Criticality Noted Date [...] mouth before breakfast. 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 Encounters Date Type Department Care Team Description 01/31/2025 Orders Only [facility] MED & PEDS [address] [place] [address] Tiny Richter MD Excessive bleeding in premenopausal period (Primary Dx) 01/25/2025 11:00 AM EDT Office Visit [facility] & [facility]S [address] [place] [address] Tiny Richter MD Postoperative hypoxia (Primary Dx); Autoimmune hypothyroidism; Generalized anxiety disorder; Reducible umbilical hernia 01/25/2025 Travel 01/24/2025 Telephone [facility] & [facility]S [address] [place] [address] Tiny Richter MD Chart Prep 01/22/2025 Travel 01/19/2025 Telephone [facility] MEDICINE [address] [place] [address] Tiny Richter MD Results 01/18/2025 Refill [facility] & PEDS [address] [place] [address] Tiny Richter MD 01/18/2025 Results Follow-Up [facility] & [facility]ED[facility] [address] [place] [address] Tiny Richter MD XR Chest 1 View 01/16/2025 Orders Only GENERIC EXTERNAL DATA DEPARTMENT Provider, Generic External Data 12/28/2024 Refill [facility] [address] [place] [address] Tiny Richter MD 12/28/2024 Refill [facility] [address] [place] [address] Tiny Richter MD 12/22/2024 Refill [facility] [address] [place] [address] Tiny Richter MD 12/22/2024 Refill [facility] [address] [place] [address] Love Morrison MD 12/22/2024 Refill [facility] [address] [place] [address] Tiny Richter MD from Last 3 Months Immunizations Immunization Administration Dates Next Due HPV, Quadrivalent 03/08/2009,11/27/2008,07/10/19 09 Hep B, adult 08/02/2024 Influenza injectable quadriv alent preservative free 03/21/2021,02/21/2018 Influenza, IIV3, injectable 01/30/2011, 0 Meningococcal ACWY, unspecified 04/26/2009 Novel [id number], all formulations 2008 Tdap 03/16/2018,11/27/2008 Social History [...] Description 03/22/2025 11:30 AM EST Office Visit [facility] OPTOMETRY [address] [place] [address], [place] [address] Vaishnavi Ledezma, OD [address] [place] [address] Health Maintenance Due Date Last Done Comments [...] QL, URINE Routine 01/16/2025 5:55 AM EDT HEPATITIS C AB W/REFL TO HCV RNA, [...] PM EDT Narrative 01/16/2025 1:07 PM EDT [address] [address] XRay Report Signed Patient: Steve Sow MR#: [id number] : 1990 Acct:[id number] Age/Sex: 35 / F ADM Date: 01/16/25 Loc: .[facility] Attending Dr: Karan Cobos MD Ordering Physician: Delfina Blanco DO Date of Service: 01/16/25 Procedure(s): XR chest 1V Accession Number(s): [id number] cc: Tiny Richter MD; Delfina Blanco DO [...] 01/16/25 1305 DD/ 1237 TD/TT: 01/16/25 1255 Airline Security Representative: Procedure Note Donotuseinterpreter, Image - 01/16/[address] [address] XRay Report Signed Patient: Liliana Sow#: [id number] : 1990Acct:[id number] Age/Sex: 35 / FADM Date: 01/16/25 Loc: .[facility] Attending Dr: Karan Cobos MD Ordering Physician: Delfina Blanco DO Date of Service: 01/16/25 Procedure(s): XR chest 1V Accession Number(s): [id number] cc: Tiny Richter MD; Delfina Blanco DO [...] Franklin Telles MD 01/16/2025 01:05 PM EDT Dictated By: Franklin Telles MD Signed By: <Electronically signed by Franklin Telles MD in OV> 01/16/25 1305 DD/ 1237 TD/TT: 01/16/25 1255 Airline Security Representative: [facility] External Provider IMG XR PROCEDURES Final Result * HCG, Qualitative, Urine (01/16/2025 5:55 AM EDT) Pathologist [facility] Urine NEGATIVE NEGATIVE [facility] Comment:This test was develo ped to detect early . Falsenegative results may occur after the 5th - 7th week ofpregnancy when using this test method. If clinicallyindicated, consider a serum hCG. 01/16/2025 5:55 AM EDT 01/16/2025 6:12 AM EDT Generic External Data Provider LAB URINE ORDERAB LES Final Result Performing Organization Address [facility] Co de Phone Number [facility] [address] [place] [phone] * Hepatitis C Antibody with Reflex to HCV, RNA, Quantitative, Real-Time PCR (06/07/2024 1:01 PM EST) Pathologist [facility] Hepatitis C Antibody Nonreactive Nonreactive [facility] Comment:Antibodies to HCV no t detected; does not exclude early acuteHCV infection. Blood Venous blood specimen / Unknown 06/07/2024 1:01 PM EST 06/07/2024 2:37 PM EST Tiny Richter MD LAB BLOOD ORDERABLES Final Re sult Performing Organization Address [facility] Co de Phone Number [facility] [address] [place] [phone] * HIV-1/2 Antigen and Antibodies, Fourth Generation, with Reflexes (06/07/2024 1:01 PM EST) Pathologist [facility] HIV AB/AG Nonreactive Nonreactive [facility] Comment:HIV-1 p24 Ag and/or HIV-1/HIV-2 Ab not detected.A test result that is nonreactive does not exclude thepossibility of exposure to or infection with HIV-1 and/orHIV-2. Nonreactive results in this assay for individualswith prior exposure to HIV-1 and/or HIV-2 may be due toantigen and antibody levels that are below the limit ofdetection of this assay.The [employer] HIV Ag/Ab Combo assay result andsupplemental assay results should be interpreted inconjunction with the patient's clinical presentation,history and other laboratory results. If the results areinconsistent with clinical evidence, additional testing issuggested to confirm the result. Blood Venous blood specimen / Unknown 06/07/2024 1:01 PM EST 06/07/2024 2:37 PM EST us Tiny Richter MD LAB BLOOD ORDERABLES Final Re sult [facility] [address] [place] [phone] [phone] * THINPREP PAP (10/05/2020 11:02 AM EDT) Pathologist [facility] Clinical Information: None given [facility], [...] along with historic and current clinical information. Metrology Technician : SEE COMMENT [facility] Comment: NSS, CT(ASCP) CT screening location: [place] [address] Interpretation/R esult: Negative for intraepithelial lesion or [...] ORDERABLES Chiquita l Result Performing Organization Address [facility] de Phone Number [facility] [address] * HPV mRNA E6/E7 (10/05/2020 11:02 AM EDT) HPV nRNA E6/E7 Not Detected Not Detected [facility] Comment: Methodology: Talent Acquisition Program Manager-Mediated Amplification This assay detects E6/E7 viral messenger RNA (mRNA) from 14 high-risk HPV types (16,18,31,33,35,39,45,51,52,56,58,59,66,68). The analytical performance characteristics of this assay have been determined by [employer]. The modifications have not been cleared or approved by the FDA. This assay has been validated pursuant to the CLIA regulations and is used for clinical purposes. For additional information, please refer to http://education.[employer]/faq/PMD597t1 (This link if provided for information/ educational purposes only.) NO COLLECTION DATE RECEIVED. WE HAVE USED THE DATE THE SPECIMEN WAS RECEIVED BY THIS LABORATORY THE COLLECTION DATE. IF THIS IS INCORRECT, PLEASE CONTACT CLIENT SERVICES. PHONE NUMBER: 10/05/2020 11:0 2 AM EDT us Tiny Richter MD LAB BLOOD ORDERABLES Final Re sult Performing Organization Address [facility] Co de Phone Number [facility] [address] from Last 3 Months or Most Recently Relevant to Health Maintenance Insurance [facility] C3 Care Teams Stock Tracer Relationship Specialty Start Date End Date Tiny Richter MD [address] [facility] [place] [address] PCP - General Family Medicine 09/01/17
--- OUTSIDE RECORDS SUMMARY | 2025-02-21 10:25 | XMS_ITS | Encounter Summary ---
Author Organization [employer] Address [address] [place] [address] Care Team Providers Care Operations Planner Name Role Phone Tiny Richter MD Primary Care Provider [phone] Reason for Visit * Reason Onset Date Comments Med Refill 12/22/2024 Encounter Details Date Type Department Care Team ([facility] st Contact Info) Description 12/22/2024 Refill [facility] MED & PEDS [address] [place] [address] Tiny Richter MD [address] [place] [address] Social History Tobacco Use Types Packs/Day Years [...] AM EST Office Visit [facility] OPT[facility] [address] [place] [address] Vaishnavi Ledezma, OD [address] [place] [address] documented as of this encounter Visit Diagnoses Not on filedocumented in this encounter Additional Health Concerns Assessment Noted Time PHQ-9 Depression Total Score: 15 025 10:56 AM EST documented as of this encounter Care Teams Operations Planner Relationship Specialty Start Date End Date Tiny Richter MD [address] [place] [address] PCP - General Family Medicine 09/01/17 documented as of this encounter
--- OUTSIDE RECORDS SUMMARY | 2025-02-21 10:25 | XMS_ITS | Encounter Summary ---
Author Organization [employer] Address [address] [place] [address] Care Team Providers Care Dairy Husbandry Teacher Name Role Phone Tiny Richter MD Primary Care Provider [phone] Reason for Visit * Reason Onset Date Comments Med Refill 01/18/2025 Encounter Details Date Type Department Care Team ([facility] st Contact Info) Description 01/18/2025 Refill [facility] MED & PEDS [address] [place] [address] Tiny Richter MD [address] [place] [address] Social History Tobacco Use Types Packs/Day Years [...] AM EST Office Visit [facility] [address] [place] [address] Vaishnavi Ledezma, OD [address] [place] [address] documented as of this encounter Visit Diagnoses Not on filedocumented in this encounter Additional Health Concerns Assessment Noted Time PHQ-9 Depression Total Score: 15 025 10:56 AM EST documented as of this encounter Care Teams Dairy Husbandry Teacher Relationship Specialty Start Date End Date Tiny Richter MD [address] [place] [address] PCP - General Family Medicine 09/01/17 documented as of this encounter
--- OUTSIDE RECORDS SUMMARY | 2025-02-21 10:25 | XMS_ITS | Encounter Summary ---
Author Organization [employer] Address [address] [place] [address] [address]t [place] [address] Care Team Providers Care Mental Health Unit Lead Psychologist Name Role Phone Tiny Richter MD Primary Care Provider [phone] Encounter Details Date Type Department Care Team (Late Contact Info) Description 11/06/[address] [facility] CHC MED & PEDS [address] [place] [address] Fay Clark LPN Social History Tobacco Use [...] Description 03/22/2025 11:30 AM EST Office Visit [facility] OPTOMETRY [address] [place], [place] [phone] Vaishnavi Ledezma OD [address] [place] [address] documented as of this encounter Visit Diagnoses Not on filedocumented in this encounter Care Teams Mental Health Unit Lead Psychologist Relationship Specialty Start Date End Date Tiny Richter MD [address] [place] [address] PCP - General Family Medicine 09/01/17 documented as of this encounter
--- OUTSIDE RECORDS SUMMARY | 2025-02-21 10:25 | XMS_ITS | Encounter Summary ---
Author Organization [employer] Address [address] [place] [address] Care Team Providers Care Rotor Pilot Name Role Phone Tiny Richter MD Primary Care Provider [phone] Reason for Visit * Reason Onset Date Comments Med Refill 12/22/2024 Encounter Details Date Type Department Care Team ([facility] st Contact Info) Description 12/22/2024 Refill [facility] CHC MED & PEDS [address] [place] [address] Love Morrison MD [address] [place] [address] Social History Tobacco Use Types Packs/Day Years [...] AM EST Office Visit [facility] [address] [place] [address] Vaishnavi Ledezma, OD [address] [place] [address] documented as of this encounter Visit Diagnoses Not on filedocumented in this encounter Additional Health Concerns Assessment Noted Time PHQ-9 Depression Total Score: 15 025 10:56 AM EST documented as of this encounter Care Teams Rotor Pilot Relationship Specialty Start Date End Date Tiny Richter MD [address] [place] [address] PCP - General Family Medicine 09/01/17 documented as of this encounter
--- OUTSIDE RECORDS SUMMARY | 2025-02-21 10:25 | XMS_ITS | Clinical Summary ---
Author Organization [facility] Address [address] [place] [address] Phone Care Team Providers Care Industrial Machine Assembler Name Role Phone Kofi Burks MD Primary Care Provider [phone] Allergies Active Allergy Reactions Criticality Noted Date Comments Penicillins 03/31/2024 Surgical History Surgery Date Site/Laterality Comments TONSILLECTOMY ADENOIDECTOMY, BILATERAL MYRINGOTOMY AND TUBES PROCEDURE: [place] TONSILLECTOMY & ADENOIDECTOMY <AGE 13 OTHER SURGICAL [...] to complete this topic Insurance [place] Care Teams Industrial Machine Assembler Relationship Specialty Start Date End Date Kofi Burks MD [address] [place] [address] PCP - General 09/20/14
--- OUTSIDE RECORDS SUMMARY | 2025-02-21 10:25 | XMS_ITS | Encounter Summary ---
Author Organization [employer] Address [address] [place] [address] [address] [place] [address] Care Team Providers Care Adjunct Instructor Chemistry Name Role Phone Tiny Richter MD Primary Care Provider Reason for Visit * Reason Comments Med Refill Encounter Details Date Type Department Care Team (Late Contact Info) Description 04/09/2023 Refill [facility] MED & PEDS [address] [place] [address] Tiny Richter MD [address] [place] [address] Social History Tobacco Use Types Packs/Day Years [...] 03/22/2025 11:30 AM EST Office Visit [facility] OPTOMETRY [address] [place] [address] TarVaishnavi josé, OD [address] [place] [address] documented as of this encounter Visit Diagnoses Not on filedocumented in this encounter Care Teams Adjunct Instructor Chemistry Relationship Specialty Start Date End Date Tiny Richter MD [address] [place] [address] PCP - General Family Medicine 09/01/17 documented as of this encounter
--- OUTSIDE RECORDS SUMMARY | 2025-02-21 10:25 | XMS_ITS | Encounter Summary ---
Author Organization [employer] Address [address] [place] [address] [address] [place] [address] Care Team Providers Care Cutter Out Name Role Phone Tiny Richter MD Primary Care Provider Encounter Details Date Type Department Care Team (Late st Contact Info) Description 11/23/2022 Orders Only [facility] [address] [place] [address] Lexii Suero LPN Social History Tobacco Use [...] Description 03/22/2025 11:30 AM EST Office Visit [facility] OPT[facility] [address] [place], [place] [phone] Vaishnavi Ledezma OD [address] [place] [address] documented as of this encounter Visit Diagnoses Not on filedocumented in this encounter Care Teams Cutter Out Relationship Specialty Start Date End Date Tiny Richter MD [address] [place] [address] PCP - General Family Medicine 09/01/17 documented as of this encounter
== END 2025-02-21 09:30 | disposition home or self-care (01) ==
LOC: HO.HGS 09:19
PROVIDERS: PCP Pediatrics
DX: Z09 Encounter for follow-up examination after completed treatment for conditions other than malignant neoplasm (principal)
CPT/HCPCS: 99213

== ENCOUNTER → 2025-02-21 09:19 | Outpatient (BNVA) | payer MEDICAID, SELFPAY | PROVIDERS: PCP Pediatrics | DX: Z09 Encounter for follow-up examination after completed treatment for conditions other than malignant neoplasm (principal); Z87.19 Personal history of other diseases of the digestive system | CPT/HCPCS: 99212 ==